=== PATIENT | male | born 1955 | race Caucasian/White ===

== ENCOUNTER 2018-12-24 01:04 | Inpatient (IN) | payer MEDICARE ==
[2018-12-24] MEDS ORDERED: ASPIRIN 81 MG PO STA (01:17)
--- NOTE | 2018-12-24 01:26 | ED ---
Chest Pain HPI - General Chief Complaint: Chest Pain Stated Complaint: Chest Pain Time Seen by Provider: 12/24/18 01:17 Source: patient Mode of arrival: ambulatory Limitations: no limitations - History of Present Illness Initial Comments: Kevin is a pleasant 63-year-old gentleman with extensive cardiac history including stenting of the LAD on December 22 and subsequent discharge home on the . Patient reports that during the evening he was laying down to go to bed when he began to feel a pressure in his chest, patient became concerned that this may be related to the recent stenting psychiatric the ER for reevaluation. Patient's currently been compliant with his boat into, he did not take any nitro prior to arrival. Patient reports an extensive cardiac history he has been stented 7 times in the past has 3 stents in the LAD and was advised after his stenting 2 days ago that he has a 70% occlusion of his right circumflex artery. Patient is still an occasional tobacco smoker with hypertension, hyperlipidemia and known vasculopathy. - Related Data Home Medications Medication Instructions Recorded Confirmed Aspirin 81 mg PO DAILY 01/20/15 12/24/18 Meclizine [Antivert] 25 mg PO TID PRN 01/20/15 12/24/18 Metoprolol Succinate (ER) [Toprol 100 mg PO BID 01/20/15 12/24/18 XL] Previous Rx's Medication Instructions Recorded Losartan [Cozaar] 50 mg PO DAILY #30 tab 12/23/18 Nitroglycerin Sl Tabs [Nitrostat] 0.4 mg SUBLINGUAL Q5M PRN #25 tab 12/23/18 Rosuvastatin Calcium [Crestor] 40 mg PO DAILY #30 tab 12/23/18 Spironolactone [Aldactone] 25 mg PO DAILY #30 tab 12/23/18 Ticagrelor [Brilinta] 90 mg PO BID #60 tab 12/23/18 Allergies Allergy/AdvReac Type Severity Reaction Status Date / Time Sulfa (Sulfonamide AdvReac HIGH FEVER Verified 12/21/18 23:38 Antibiotics) Review of Systems ROS Statement: Those systems with pertinent positive or pertinent negative responses have been documented in the HPI. ROS Other: All systems not noted in ROS Statement are negative. EKG Findings - EKG Comments: EKG Findings:: EKG obtained at 1:17 AM, rate of 61 rhythm is sinus there is normal axis, normal intervals, MS 160, QRS 90, QTC 446. There are significant T -wave inversions in the anterior lateral leads. When compared to previous EKG these T-wave inversions are new. I cannot access any post cardiac cath EKGs at this time. Past Medical History Past Medical History: Hyperlipidemia, Hypertension Additional Past Medical History / Comment(s): BACK PAIN; FAMILY HX OF DM - PT STATES THAT HE PERIODICALLY CHECKS HIS CBG AND IT IS SOMETIMES "HIGH" History of Any Multi-Drug Resistant Organisms: None Reported Past Surgical History: Adenoidectomy, Heart Catheterization With Stent, Orthopedic Surgery, Tonsillectomy Additional Past Surgical History / Comment(s): FINGER ON LEFT HAND SEWN ON - 1979; 5 STENTS - DR AYON ALL OF THEM IN - 1ST ONE IN 2001 AND LAST ONE IN 2010 Past Anesthesia/Blood Transfusion Reactions: No Reported Reaction Date of Last Stent Placement:: 2010 Past Psychological History: No Psychological Hx Reported Smoking Status: Current some day smoker Past Alcohol Use History: None Reported Past Drug Use History: None Reported - Past Family History Father Additional Family Medical History / Comment(s): VALVE Mother Family Medical History: Coronary Artery Disease (CAD), Diabetes Mellitus Additional Family Medical History / Comment(s): CABG General Exam - General Exam Comments Initial Comments: Physical Exam GENERAL: Patient is well-developed and well-nourished. Patient is nontoxic and well- hydrated and is in no distress. HENT: Normocephalic, Atraumatic. EYES: PERRL, EOMI PULMONARY: Unlabored respirations. No audible rales rhonchi or wheezing was noted. CARDIOVASCULAR: There is a regular rate and rhythm without any murmurs gallops or rubs. ABDOMEN: Soft and nontender with normal bowel sounds. SKIN: Skin is clear with no lesions or rashes and otherwise unremarkable. : Deferred NEUROLOGIC: Patient is alert and oriented x3. Moving all extremities spontaneously MUSCULOSKELETAL: Normal extremities with adequate strength and full range of motion. No lower extremity swelling or edema. No calf tenderness. PSYCHIATRIC: Normal psychiatric evaluation. Limitations: no limitations Limitations: no limitations Course Vital Signs 12/24/18 12/24/18 12/24/18 01:06 01:30 01:40 Temperature 98.3 F Pulse Rate 73 70 61 Respiratory 20 20 14 Rate Blood Pressure 191/100 155/92 158/99 O2 Sat by Pulse 97 97 95 Oximetry 12/24/18 12/24/18 12/24/18 01:53 02:00 02:30 Temperature Pulse Rate 69 72 58 L Respiratory 165 H 12 11 L Rate Blood Pressure 149/85 149/85 139/80 O2 Sat by Pulse 97 93 L 95 Oximetry Chest Pain MDM - MDM Patient was seen and evaluated history was obtained from the patient Patient with recent cardiac stenting now experiencing chest pressure which she rates 3-4 out of 10 sign aspirin and nitro ordered Cardiac workup ordered EKG was reviewed has new deep T-wave inversions concerning for ischemia Labs resulted with elevated troponin 1.4, patient did have a cardiac cath recently still uncertain of the significance of this troponin elevation next line patient care was discussed with cardiology nurse practitioner physician assistant who agrees with plan for continuing [place] tach, aspirin, nitro, patient to be evaluated by cardiology in the morning Patient was updated on findings is agreeable to plan Admission orders were placed Disposition Clinical Impression: NSTEMI (non-ST elevated myocardial infarction), Chest pain Disposition: ADMITTED IP TO THIS HOSP Condition: Serious Is patient prescribed a controlled substance at d/c from ED?: No Referrals: Brayden Bains MD [Primary Care Provider] - 1-2 days
--- NOTE | 2018-12-24 01:46 | XR ---
EXAMINATION TYPE: XR chest 2V DATE OF EXAM: 12/24/2018 COMPARISON: 12/21/2018 HISTORY: Chest pain TECHNIQUE: Frontal and lateral views of the chest are obtained. FINDINGS: Heart and mediastinum are normal. Lungs are clear of infiltrate. There is no pleural effus ion. There are chest leads. Bony thorax is intact. IMPRESSION: No active cardiopulmonary disease. No change.
[2018-12-24] MEDS: NITROGLYCERIN SL TABS 0.4 MG TAB SUBLINGUAL PRN ×2 (01:49→06:33)
[2018-12-24 01:52] LABS: Basophils % (A) 1 %; Eosinophils # (A) 0.2 k/uL (0-0.7); Eosinophils % (A) 2 %; HCT 50.6 % (39.0-53.0); HGB 17.3 gm/dL (13.0-17.5); Lymphocytes # (A) 1.7 k/uL (1.0-4.8); Lymphocytes % (A) 24 %; MCH 30.7 pg (25.0-35.0); MCHC 34.2 g/dL (31.0-37.0); MCV 89.8 fL (80.0-100.0); Mean Platelet Volume 7.9; Monocytes # (A) 0.5 k/uL (0-1.0); Monocytes % (A) 7 %; Neutrophils # (A) 4.7 k/uL (1.3-7.7); Neutrophils % (A) 64 %; Platelet Count 158 k/uL (150-450); RBC 5.64 m/uL (4.30-5.90); RDW 13.5 % (11.5-15.5); WBC 7.3 k/uL (3.8-10.6)
[2018-12-24 01:56] LABS: Albumin 4.4 g/dL (3.5-5.0); Calcium 9.8 mg/dL (8.4-10.2); Magnesium 2.1 mg/dL (1.6-2.3); Potassium 4.4 mmol/L (3.5-5.1); Total Bilirubin 1.5 mg/dL (0.2-1.3); Total Protein 7.2 g/dL (6.3-8.2)
[2018-12-24 02:07] LABS: Partial Thromboplastin Time 24.5 sec (22.0-30.0); Prothrombin Time 10.4 sec (9.0-12.0)
[2018-12-24 02:21] LABS: Creatine Kinase MB 2.3 ng/mL (0.0-2.4)
[2018-12-24 02:24] LABS: Troponin I 1.49 ng/mL (0.000-0.034)
[2018-12-24] MEDS ORDERED: NITROGLYCERIN OINT 1 INCH/GM PACKET TOPICAL STA (02:29)
[2018-12-24 04:28] VITALS: BMI 30.2
[2018-12-24 08:16] LABS: Creatine Kinase MB 1.6 ng/mL (0.0-2.4)
[2018-12-24 08:26] LABS: Troponin I 1.36 ng/mL (0.000-0.034)
[2018-12-24] MEDS ORDERED: NITROGLYCERIN SL TABS 0.4 MG TAB SUBLINGUAL PRN ×2 (09:26→17:24)
[2018-12-24] MEDS ORDERED: ATORVASTATIN 80 MG TAB PO SCH (09:30)
--- NOTE | 2018-12-24 10:06 | P.HPIM ---
History of Present Illness 63-year-old gentleman came in with the comments of chest pressure like sensation which felt like his previous heart attack. Patient was discharged yesterday after he had an LAD stenting patient has ejection fraction of 30% patient denied any shortness of breath denied any lightheadedness denied any significant diaphoresis. Patient troponins bit elevated but the history of troponin during his previous hardware hospitalization was 4.5 if this may be attending down troponin patient does have significant T-wave inversions which are also presenton his previous EKGs but more prominent now in the anterolateral leads. Patient used to be a smoker didn't smoke his pain started after he woke up at around 11 PM midnight. Pain was constant moderate in severity without any significant radiation on the left side of the chest pressure like sensation. Nonpleuritic not associated with food. Pravin 2 sets of troponins are fairly stable at around 1.5. Cardiology was consulted. His cardiac catheterization showed significant around 70-80% blockages in RCA and circumflex as well. Review of Systems REVIEW OF SYSTEMS: CONSTITUTIONAL: No fever, no malaise, no fatigue. HEENT: No recent visual problems or hearing problems. Denied any sore throat. CARDIOVASCULAR: No orthopnea, PND, no palpitations, no syncope. PULMONARY: No shortness of breath, no cough, no hemoptysis. GASTROINTESTINAL: No diarrhea, no nausea, no vomiting, no abdominal pain. NEUROLOGICAL: No headaches, no weakness, no numbness. HEMATOLOGICAL: Denies any bleeding or petechiae. GENITOURINARY: Denies any burning micturition, frequency, or urgency. MUSCULOSKELETAL/RHEUMATOLOGICAL: Denies any joint pain, swelling, or any muscle pain. ENDOCRINE: Denies any polyuria or polydipsia. The rest of the 14-point review of systems is negative. Past Medical History Past Medical History: Hyperlipidemia, Hypertension Additional Past Medical History / Comment(s): BACK PAIN; FAMILY HX OF DM - PT STATES THAT HE PERIODICALLY CHECKS HIS CBG AND IT IS SOMETIMES "HIGH" History of Any Multi-Drug Resistant Organisms: None Reported Past Surgical History: Adenoidectomy, Heart Catheterization With Stent, Orthopedic Surgery, Tonsillectomy Additional Past Surgical History / Comment(s): FINGER ON LEFT HAND SEWN ON - 1979; 5 STENTS - DR AYON ALL OF THEM IN - 1ST ONE IN 2001 AND LAST ONE IN 2010 Past Anesthesia/Blood Transfusion Reactions: No Reported Reaction Date of Last Stent Placement:: 2010 Past Psychological History: No Psychological Hx Reported Smoking Status: Current some day smoker Past Alcohol Use History: None Reported Past Drug Use History: None Reported - Past Family History Father Family Medical History: Hypertension Additional Family Medical History / Comment(s): VALVE Mother Family Medical History: Coronary Artery Disease (CAD), Diabetes Mellitus Additional Family Medical History / Comment(s): CABG Medications and Allergies Home Medications Medication Instructions Recorded Confirmed Type Aspirin 81 mg PO DAILY 01/20/15 12/24/18 History Nitroglycerin Sl Tabs [Nitrostat] 0.4 mg SUBLINGUAL Q5M PRN #25 tab 12/23/18 Rx Rosuvastatin Calcium [Crestor] 40 mg PO DAILY #30 tab 12/23/18 12/24/18 Rx Spironolactone [Aldactone] 25 mg PO DAILY #30 tab 12/23/18 12/24/18 Rx Ticagrelor [Brilinta] 90 mg PO BID #60 tab 12/23/18 12/24/18 Rx Cholecalciferol [Vitamin D3] 1,000 unit PO DAILY 12/24/18 12/24/18 History Losartan Potassium 50 mg PO DAILY 12/24/18 12/24/18 History Metoprolol Tartrate [Lopressor] 100 mg PO BID 12/24/18 12/24/18 History amLODIPine [Norvasc] 10 mg PO DAILY 12/24/18 12/24/18 History Allergies Allergy/AdvReac Type Severity Reaction Status Date / Time Sulfa (Sulfonamide AdvReac HIGH FEVER Verified 12/21/18 23:38 Antibiotics) Physical Exam Vitals: Vital Signs Temp Pulse Pulse Resp BP BP Pulse Ox 12/24/18 04:00 97.9 F 70 18 149/96 95 12/24/18 03:00 68 16 152/89 97 12/24/18 02:52 97.9 F 70 18 149/96 95 12/24/18 02:30 58 L 11 L 139/80 95 12/24/18 02:00 72 12 149/85 93 L 12/24/18 01:53 69 165 H 149/85 97 12/24/18 01:40 61 14 158/99 95 12/24/18 01:30 70 20 155/92 97 12/24/18 01:06 98.3 F 73 20 191/100 97 Intake and Output 12/23/18 12/24/18 12/24/18 22:59 06:59 14:59 Other: Voiding Method Toilet Weight 86.6 kg PHYSICAL EXAMINATION: GENERAL: The patient is alert and oriented x3, not in any acute distress. Well developed, well nourished. HEENT: Pupils are round and equally reacting to light. EOMI. No scleral icterus. No conjunctival pallor. Normocephalic, atraumatic. No pharyngeal erythema. No thyromegaly. CARDIOVASCULAR: S1 and S2 present. No murmurs, rubs, or gallops. PULMONARY: Chest is clear to auscultation, no wheezing or crackles. ABDOMEN: Soft, nontender, nondistended, normoactive bowel sounds. No palpable organomegaly. MUSCULOSKELETAL: No joint swelling or deformity. EXTREMITIES: No cyanosis, clubbing, or pedal edema. NEUROLOGICAL: Gross neurological examination did not reveal any focal deficits. SKIN: No rashes. Results CBC & Chem 7: 12/24/18 01:17 12/24/18 01:17 Labs: Abnormal Lab Results - Last 24 Hours (Table) 12/24/18 12/24/18 12/24/18 Range/Units 01:17 01:17 06:46 Glucose 162 H (74-99) mg/dL Total Bilirubin 1.5 H (0.2-1.3) mg/dL Troponin I 1.490 H* 1.360 H* (0.000-0.034) ng/mL Thrombosis Risk Factor Assmnt - Choose All That Apply Each Factor Represents 1 point: Obesity (BMI >25) Each Risk Factor Represents 2 Points: Age 61-74 years Thrombosis Risk Factor Assessment Total Risk Factor Score: 3 Thrombosis Risk Factor Assessment Level: Moderate Risk Assessment and Plan Plan: -elevated troponins: Non-ST elevation myocardial infarction cannot be ruled out although the troponin elevation can be the trending down troponins from his previous non-ST elevation myocardial infarction. Patient will be continued on heparin discussed with cardiology patient may end up going for cardiac catheterizationconsidering his significant lesionsin RCA and circumflex. -Coronary artery disease: Continue with the dual antiplatelet therapy Crestor beta karen. -Hypertension -Congestive heart failure with ejection fraction of 30-35% not in acute exacerbation patient has chronic systolic dysfunction from his previous myocardial infarction. Continue with losartan as mentioned above is not requiring any diuretic therapy at this time -Hyperlipidemia
[2018-12-24] MEDS: LOSARTAN 50 MG TAB PO SCH (10:28)
[2018-12-24] MEDS: METOPROLOL TARTRATE 50 MG TAB PO SCH ×2 (10:28→21:02)
[2018-12-24] MEDS: SPIRONOLACTONE 25 MG TAB PO SCH (10:28)
[2018-12-24] MEDS ORDERED: ASPIRIN 325 MG TAB PO STA (11:52)
[2018-12-24] MEDS ORDERED: ASPIRIN 81 MG PO ONE (12:00)
[2018-12-24] MEDS: NITROGLYCERIN OINT 1 INCH/GM PACKET TOPICAL SCH ×3 (12:14→23:35)
--- NOTE | 2018-12-24 14:12 | P.CRDCN ---
History of Present Illness Consult date: 12/24/18 Chief complaint: Chest pain History of present illness: This is a pleasant 63-year-old gentleman with coronary artery disease, significant history of smoking, hypertension, dyslipidemia, presented to the emergency room complaining of chest discomfort. The patient initially presented a few days ago with a chest discomfort and ruled in for acute non-ST patient myocardial infarction. At that time he underwent a heart catheterization and was found to have severe disease involving the proximal LAD, severe disease involving the LCx, and intermediate to severe disease involving the right coronary artery. At that point the patient underwent successful stenting of the LAD with a good angiographic results and without any complication. Echo at that point showed an EF around 30 -35% with anterior hypokinesia. The patient was discharged home yesterday in stable medical condition to follow-up with me in the office. He was in his usual state of health and was chest pain-free to yesterday when he was at home and started experiencing discomfort, across the chest, as a pressure, without any radiation to the arm or neck or shoulders and without any associated symptoms of shortness of breath, sweating, dizziness or lightheadedness, or syncope. The EKG showed sinus rhythm with deep T-wave inversion in the anterior leads. The cardiac enzymes are abnormal that could be reflecting the prior PCI was performed 2 days ago. The patient continues to have ongoing chest discomfort around 1-3 over 10 in intensity. Because of that I decided to pursue with a heart catheterization later on today. Past Medical History Past Medical History: Hyperlipidemia, Hypertension Additional Past Medical History / Comment(s): BACK PAIN; FAMILY HX OF DM - PT STATES THAT HE PERIODICALLY CHECKS HIS CBG AND IT IS SOMETIMES "HIGH" History of Any Multi-Drug Resistant Organisms: None Reported Past Surgical History: Adenoidectomy, Heart Catheterization With Stent, Orthopedic Surgery, Tonsillectomy Additional Past Surgical History / Comment(s): FINGER ON LEFT HAND SEWN ON - 1979; 5 STENTS - DR AYON ALL OF THEM IN - 1ST ONE IN 2001 AND LAST ONE IN 2010 Past Anesthesia/Blood Transfusion Reactions: No Reported Reaction Date of Last Stent Placement:: 2010 Past Psychological History: No Psychological Hx Reported Smoking Status: Current some day smoker Past Alcohol Use History: None Reported Past Drug Use History: None Reported - Past Family History Father Family Medical History: Hypertension Additional Family Medical History / Comment(s): VALVE Mother Family Medical History: Coronary Artery Disease (CAD), Diabetes Mellitus Additional Family Medical History / Comment(s): CABG Medications and Allergies Home Medications Medication Instructions Recorded Confirmed Type Aspirin 81 mg PO DAILY 01/20/15 12/24/18 History Nitroglycerin Sl Tabs [Nitrostat] 0.4 mg SUBLINGUAL Q5M PRN #25 tab 12/23/18 Rx Rosuvastatin Calcium [Crestor] 40 mg PO DAILY #30 tab 12/23/18 12/24/18 Rx Spironolactone [Aldactone] 25 mg PO DAILY #30 tab 12/23/18 12/24/18 Rx Ticagrelor [Brilinta] 90 mg PO BID #60 tab 12/23/18 12/24/18 Rx Cholecalciferol [Vitamin D3] 1,000 unit PO DAILY 12/24/18 12/24/18 History Losartan Potassium 50 mg PO DAILY 12/24/18 12/24/18 History Metoprolol Tartrate [Lopressor] 100 mg PO BID 12/24/18 12/24/18 History amLODIPine [Norvasc] 10 mg PO DAILY 12/24/18 12/24/18 History Allergies Allergy/AdvReac Type Severity Reaction Status Date / Time Sulfa (Sulfonamide AdvReac HIGH FEVER Verified 12/21/18 23:38 Antibiotics) Physical Exam Vitals: Vital Signs Temp Pulse Pulse Resp BP BP Pulse Ox 12/24/18 08:05 98.0 F 71 18 126/81 96 12/24/18 04:00 97.9 F 70 18 149/96 95 12/24/18 03:00 68 16 152/89 97 12/24/18 02:52 97.9 F 70 18 149/96 95 12/24/18 02:30 58 L 11 L 139/80 95 12/24/18 02:00 72 12 149/85 93 L 12/24/18 01:53 69 165 H 149/85 97 12/24/18 01:40 61 14 158/99 95 12/24/18 01:30 70 20 155/92 97 12/24/18 01:06 98.3 F 73 20 191/100 97 Intake and Output 12/23/18 12/24/18 12/24/18 22:59 06:59 14:59 Other: Voiding Method Toilet Weight 86.6 kg - Constitutional General appearance: no acute distress - Respiratory Respiratory: bilateral: CTA - Cardiovascular Rhythm: regular Heart sounds: normal: S1, S2 Results 12/24/18 01:17 12/24/18 01:17 Cardiac Enzymes 12/24/18 12/24/18 12/24/18 Range/Units 01:17 01: 06:46 AST 29 (17-59) U/L CK-MB (CK-2) 2.3 1.6 (0.0-2.4) ng/mL Troponin I 1.490 H* 1.360 H* (0.000-0.034) ng/mL Coagulation 12/24/18 Range/Units 01:17 PT 10.4 (9.0-12.0) sec APTT 24.5 (22.0-30.0) sec CBC 12/24/18 Range/Units 01:17 WBC 7.3 (3.8-10.6) k/uL RBC 5.64 (4.30-5.90) m/uL Hgb 17.3 (13.0-17.5) gm/dL Hct 50.6 (39.0-53.0) % Plt Count 158 (150-450) k/uL Comprehensive Metabolic Panel 12/24/18 Range/Units 01:17 Sodium 138 (137-145) mmol/L Potassium 4.4 (3.5-5.1) mmol/L Chloride 104 (98-107) mmol/L Carbon Dioxide 25 (22-30) mmol/L BUN 16 (9-20) mg/dL Creatinine 1.04 (0.66-1.25) mg/dL Glucose 162 H (74-99) mg/dL Calcium 9.8 (8.4-10.2) mg/dL AST 29 (17-59) U/L ALT 33 (21-72) U/L Alkaline Phosphatase 74 (38-126) U/L Total Protein 7.2 (6.3-8.2) g/dL Albumin 4.4 (3.5-5.0) g/dL Current Medications Generic Name Dose Route Start Last Admin Trade Name Freq PRN Reason Stop Dose Admin Aspirin 81 mg 12/25/18 09:00 Aspirin PO DAILY EARL Atorvastatin Calcium 80 mg 12/24/18 09:30 01/25/19 09:38 Lipitor PO Not Given DAILY EARL Losartan Potassium 50 mg 12/24/18 09:30 12/24/18 10:28 Cozaar PO 50 mg DAILY EARL Administration Metoprolol Tartrate 100 mg 12/24/18 09:30 12/24/18 10:28 Lopressor PO 100 mg BID EARL Administration Nitroglycerin 1 inch 12/24/18 12:00 12/24/18 12:14 Nitro-Bid Oint TOPICAL 1 inch Q6HR EARL Administration Nitroglycerin 0.4 mg 12/24/18 09:26 Nitrostat SUBLINGUAL Q5M PRN Chest Pain Spironolactone 25 mg 12/24/18 09:30 12/24/18 10:28 Aldactone PO 25 mg DAILY EARL Administration Ticagrelor 90 mg 12/24/18 21:00 Brilinta PO BID EARL Intake and Output 12/23/18 12/24/18 12/24/18 22:59 06:59 14:59 Other: Voiding Method Toilet Weight 86.6 kg 12/24/18 01:17 12/24/18 01:17 Assessment and Plan Assessment: Assessment #1 acute non-ST patient myocardial infarction #2 known CAD as described above #3 status post a stenting of the LAD #4 multiple comorbid conditions Plan #1 continue the current medical regimen #2 proceed with coronary angiogram later on today
[2018-12-24 14:31] LABS: Creatine Kinase MB 1.3 ng/mL (0.0-2.4)
[2018-12-24 14:46] LABS: Troponin I 1.1 ng/mL (0.000-0.034)
[2018-12-24] MEDS ORDERED: LIDOCAINE 1% INJ 10MG/ML (20 ML MDV) ONE (16:09)
[2018-12-24] MEDS ORDERED: MIDAZOLAM 2 MG/2 ML VIAL IVP ONE ×2 (16:35→16:40)
[2018-12-24] MEDS ORDERED: LIDOCAINE 1% INJ 10MG/ML (20 ML MDV) SQ ONE (16:37)
[2018-12-24] MEDS ORDERED: IV FLUID CONTINUATION 900 ML IV ONE (16:40)
[2018-12-24] MEDS ORDERED: BIVALIRUDIN BOLUS 250 MG/50 ML IV ONE (16:43)
[2018-12-24] MEDS ORDERED: BIVALIRUDIN 250 MG in SODIUM CHLORIDE 0.9% 50 ML IV ONE (16:44)
[2018-12-24] MEDS ORDERED: TICAGRELOR 90 MG TAB ONE (16:44)
[2018-12-24] MEDS ORDERED: TICAGRELOR 90 MG TAB PO ONE (16:45)
[2018-12-24] MEDS ORDERED: NITROGLYCERIN 1000MCG/10ML SYRINGE INTRACORON ONE (16:55)
[2018-12-24] MEDS: NITROGLYCERIN 1000MCG/10ML SYRINGE INTRACORON ONE ×2 (16:58→17:13)
[2018-12-24] MEDS ORDERED: IOPAMIDOL-370 125ML BTL INJ ONE (17:14)
[2018-12-24] MEDS ORDERED: HYDROmorphone 2 MG/ML 1 ML SYRINGE IVP ONE (17:21)
[2018-12-24] MEDS ORDERED: ZOLPIDEM 5 MG TAB PO PRN (17:24)
[2018-12-24] MEDS ORDERED: RX INFO: IV CONTRAST WAS GIVEN 1 EACH MISC MISCELLANE PRN (17:24)
[2018-12-24] MEDS ORDERED: MAG HYDROX/AL HYDROX/SIMETH 30 ML CUP PO PRN (17:24)
[2018-12-24] MEDS ORDERED: ATROPINE SULFATE 0.1 MG/ML 10ML SYRINGE IV PRN (17:24)
[2018-12-24] MEDS ORDERED: SODIUM CHLORIDE 0.9% 1,000 ML IV SCH (17:30)
--- NOTE | 2018-12-24 18:07 | CC ---
CARDIAC CATHETERIZATION REPORT DATE OF SERVICE: 12/24/2018 PERFORMING PHYSICIAN: Lawrence Canada MD, [facility]. PROCEDURES PERFORMED: 1. Selective right and left coronary angiogram. 2. Successful stenting of OM1 of left circumflex using a 3.0 x 15 mm Xience drug- eluting stent with an excellent angiographic result and reduction of stenosis from 80% to 0%. 3. Successful stenting of the mid right coronary artery using a 2.75 x 15 mm Xience drug-eluting stent which was post-dilated using 3 mm balloon with an excellent angiographic result and reduction of stenosis from 70% to 0%. INDICATION: This is a pleasant 63-year-old gentleman who has known history of coronary artery disease who underwent a few days ago stenting of the LAD and was found to have severe disease involving the OM1 as well as mid RCA, was discharged home yesterday in stable medical condition. He presented back to the hospital with chest discomfort. Because of that, a heart catheterization was advised. APPROACH: Right common femoral artery. COMPLICATIONS: None. LEVEL OF SEDATION: Moderate, with sedation length of 44 minutes. PROCEDURE DESCRIPTION: After obtaining informed consent, the patient was brought to the cardiac labor relations teacher. The right common femoral artery was cannulated using micropuncture technique. The micropuncture wire passed easily. Then I placed a 6-Divehi sheath in the right common femoral artery. After that I did selective right and left coronary angiogram. Selective right coronary angiogram was performed using JR4 guide. Selective left coronary angiogram was performed using JL3 guide. Left heart catheterization was performed using the JR4 guide which crossed the aortic valve. Then I did pullback across the aortic valve. After that I did intervene on the OM1 as well as RCA. Please see separate paragraph for that. SELECTIVE CORONARY ANGIOGRAM: 1. The left main is . The LAD and left circumflex have separate origin from the aorta. 2. The LAD. The proximal LAD is stented. The stent is patent. The mid LAD has a lesion that appeared to be in the range of 50% to 60% and seems to be unchanged compared to before. This is just by the bifurcation of a medium-sized diagonal branch. The LAD distal to the diagonal is stented and the stent is patent. The LAD distally appeared to be normal. 3. The left circumflex. The proximal circumflex has mild disease only. The mid circumflex has mild disease and gives rise to a large OM branch which has a tight lesion in the range of 80%. The circumflex distally appeared to have mild to moderate diffuse disease. 4. The right coronary artery. The proximal right appeared to have mild disease only. The mid right has a lesion that appeared to be in the range of 70%. The right distally appeared to have mild disease only and bifurcates into PDA and PLV branches. PERCUTANEOUS CORONARY INTERVENTION OF THE LEFT CIRCUMFLEX: Anticoagulation was initiated using Angiomax. Subsequently I took JL3 guide and the left circumflex was engaged. A run-through wire was used to wire the left circumflex coronary artery. I did balloon angioplasty using a 2.5 x 12 mm balloon before I deployed a 3.0 x 12 x 15 mm Xience drug-eluting stent where the stent was positioned under fluoroscopy guidance and deployed under its nominal pressure. The following angiogram showed good angiographic results. For the right coronary artery, I did engage the right using JR4 guide. A run-through wire was used to wire the right coronary artery. I did balloon angioplasty using a 2.5 x 12 mm balloon before I deployed a 2.75 x 15 mm Xience drug-eluting stent where the stent again was positioned under fluoroscopy guidance and deployed under its nominal pressure. I post-dilated the stent using a 3.0 mm balloon. The final angiogram showed good results and the procedure was completed without any complication. CONCLUSION: 1. Patent stent in the proximal left anterior descending artery. There was intermediate lesion in the mid LAD that appeared to be the same as before. 2. Severe disease involving OM1 of left circumflex. 3. Severe disease involving the mid right coronary artery. 4. Successful stenting of both OM and right coronary artery as described above. POST-PROCEDURE MANAGEMENT: 1. Dual anti-platelet therapy. 2. Risk factor modifications. 3. Follow up with the patient. MMODL / IJN: [id number] /
[2018-12-24] MEDS: TICAGRELOR 90 MG TAB PO SCH (21:02)
[2018-12-25] MEDS: NITROGLYCERIN OINT 1 INCH/GM PACKET TOPICAL SCH ×3 (04:57→21:31)
[2018-12-25 07:39] LABS: Cholesterol 147 mg/dL (<200); HDL Cholesterol 27 mg/dL (40-60); LDL Cholesterol,Calculated 91 mg/dL (0-99); Triglycerides 144 mg/dL (<150)
[2018-12-25] MEDS: SPIRONOLACTONE 25 MG TAB PO SCH (08:39)
[2018-12-25] MEDS: METOPROLOL TARTRATE 50 MG TAB PO SCH ×2 (08:39→21:30)
[2018-12-25] MEDS: TICAGRELOR 90 MG TAB PO SCH ×2 (08:40→21:30)
[2018-12-25] MEDS: ASPIRIN 81 MG PO SCH (08:40)
[2018-12-25] MEDS: ROSUVASTATIN 40 MG PO SCH (08:40)
[2018-12-25] MEDS: LOSARTAN 50 MG TAB PO SCH (08:40)
[2018-12-25] MEDS ORDERED: ASPIRIN 81 MG PO SCH (09:00)
[2018-12-25] MEDS ORDERED: ASPIRIN 325 MG TAB PO SCH (09:00)
--- NOTE | 2018-12-25 11:54 | P.PN ---
Subjective Progress Note Date: 12/25/18 Principal diagnosis: Non-ST elevation NE This is a pleasant 63-year-old gentleman who presented to the hospital with a chest discomfort. He was discharged from the hospital a few days ago after he presented with acute non-ST elevation NE and underwent stenting of the LAD and was found to have severe disease involving the left circumflex and RCA and the plan to proceed with PCI of both as an outpatient. He underwent heart catheterization yesterday and was found to have patent stent in the LAD with severe disease involving the RCA and LCx where he underwent stenting of both with good angiographic results On follow-up with the patient today, 12/25/2018, he remains asymptomatic from a cardiovascular standpoint of view. The right groin is soft and nontender and without any bruises. He remains in normal sinus mechanism. I did recommend giving the patient on the current medical regimen including dual antiplatelet therapy and statin and monitor the patient for additional 24 hours for possible discharge tomorrow. Objective - Vital Signs Vital signs: Vital Signs Temp 98.2 F 12/25/18 08:42 Pulse 72 12/25/18 08:42 Resp 18 12/25/18 08:42 BP 137/73 12/25/18 08:42 Pulse Ox 94 L 12/25/18 08:42 Intake & Output 12/24/18 12/25/18 12/25/18 18:59 06:59 18:59 Intake Total 235 500 120 Output Total 1200 Balance -965 500 120 Weight 85.6 kg Intake: IV 235 Intake, IV Titration 500 Amount Sodium Chloride 0.9% 1, 500 000 ml @ 100 mls/hr IV . Q10H [facility] Rx#:[id number] Oral 120 Output: Urine 1200 Other: Voiding Method Urinal Urinal # Voids 1 - Constitutional General appearance: Present: no acute distress - Respiratory Respiratory: bilateral: CTA - Cardiovascular Rhythm: regular Heart sounds: normal: S1, S2 - Labs CBC & Chem 7: 12/24/18 01:17 12/25/18 06:44 Labs: Abnormal Lab Results - Last 24 Hours (Table) 12/24/18 12/25/18 Range/Units 13:37 06:44 Troponin I 1.100 H* (0.000-0.034) ng/mL HDL Cholesterol 27 L (40-60) mg/dL Assessment and Plan Assessment: Assessment #1 acute non-ST patient myocardial infarction #2 known CAD as described above #3 status post a stenting of the LAD as well as RCA and LCx #4 multiple comorbid conditions Plan #1 continue the current medical regimen #2 monitor the patient for additional 24 hours
[2018-12-26] MEDS: NITROGLYCERIN OINT 1 INCH/GM PACKET TOPICAL SCH ×3 (00:16→12:29)
[2018-12-26 08:20] VITALS: BP 143/70; PULSE 80; RESP 18; TEMP 97.9
[2018-12-26] MEDS: METOPROLOL TARTRATE 50 MG TAB PO SCH (08:20)
[2018-12-26] MEDS: SPIRONOLACTONE 25 MG TAB PO SCH (08:20)
[2018-12-26] MEDS: TICAGRELOR 90 MG TAB PO SCH (08:21)
[2018-12-26] MEDS: ASPIRIN 81 MG PO SCH (08:21)
[2018-12-26] MEDS: LOSARTAN 50 MG TAB PO SCH (08:21)
--- NOTE | 2018-12-26 09:28 | P.PN ---
Subjective Progress Note Date: 12/25/18 Patient is admitted with for non-ST elevation microinfarction patient had a previous LAD stenting about a week ago now underwent stenting of left circumflex and RCA. Patient is chest pain-free patient's ejection fraction is 30-35% patient will monitor 1 more day before discharge Constitutional: Denied any fatigue denied any fever. Cardio vascular: denied any chest pain, palpitations Gastrointestinal denied any nausea vomiting Pulmonary: Denied any shortness of breath cough Neurologic denied any new focal deficits All inpatient medications were reviewed and appropriate changes in these medications as dictated in the interval history and assessment and plan. Objective - Vital Signs Vital signs: Vital Signs Temp 97.9 F 12/26/18 08:00 Pulse 80 12/26/18 08:00 Resp 18 12/26/18 08:00 BP 143/70 12/26/18 08:00 Pulse Ox 95 12/26/18 08:00 Intake & Output 12/25/18 12/26/18 12/26/18 18:59 06:59 18:59 Intake Total 120 240 Output Total 1200 Balance 120 -1200 240 Weight 86.1 kg Intake: Oral 120 240 Output: Urine 1200 Other: Voiding Method Urinal Urinal Toilet # Voids 1 - Exam PHYSICAL EXAMINATION: GENERAL: The patient is alert and oriented x3, not in any acute distress. Well developed, well nourished. HEENT: Pupils are round and equally reacting to light. EOMI. No scleral icterus. No conjunctival pallor. Normocephalic, atraumatic. No pharyngeal erythema. No thyromegaly. CARDIOVASCULAR: S1 and S2 present. No murmurs, rubs, or gallops. PULMONARY: Chest is clear to auscultation, no wheezing or crackles. ABDOMEN: Soft, nontender, nondistended, normoactive bowel sounds. No palpable organomegaly. MUSCULOSKELETAL: No joint swelling or deformity. EXTREMITIES: No cyanosis, clubbing, or pedal edema. NEUROLOGICAL: Gross neurological examination did not reveal any focal deficits. SKIN: No rashes. - Labs CBC & Chem 7: 12/24/18 01:17 12/25/18 06:44 Assessment and Plan Plan: -elevated troponins: Non-ST elevation myocardial infarction patient underwent stenting of RCA and circumflex, recent stenting to LAD -Coronary artery disease: Continue with the dual antiplatelet therapy Crestor beta karen. -Hypertension -Congestive heart failure with ejection fraction of 30-35% not in acute exacerbation patient has chronic systolic dysfunction from his previous myocardial infarction. Continue with losartan as mentioned above is not requiring any diuretic therapy at this time -Hyperlipidemia
[2018-12-26] MEDS: ROSUVASTATIN 40 MG PO SCH (11:38)
--- NOTE | 2018-12-26 11:41 | P.PN ---
Subjective Progress Note Date: 12/26/18 Principal diagnosis: Non-ST elevation PR This is a pleasant 63-year-old gentleman who presented to the hospital with a chest discomfort. He was discharged from the hospital a few days ago after he presented with acute non-ST elevation PR and underwent stenting of the LAD and was found to have severe disease involving the left circumflex and RCA and the plan to proceed with PCI of both as an outpatient. He underwent heart catheterization yesterday and was found to have patent stent in the LAD with severe disease involving the RCA and LCx where he underwent stenting of both with good angiographic results On follow-up with the patient today, 12/26/2018, he remains asymptomatic from a cardiovascular standpoint of view. The right groin is soft and nontender and without any bruises. He remains in normal sinus mechanism. I did recommend giving the patient on the current medical regimen including dual antiplatelet therapy and statin. The patient can be discharged home. Objective - Vital Signs Vital signs: Vital Signs Temp 97.9 F 12/26/18 08:00 Pulse 80 12/26/18 08:00 Resp 18 12/26/18 08:00 BP 143/70 12/26/18 08:00 Pulse Ox 95 12/26/18 08:00 Intake & Output 12/25/18 12/26/18 12/26/18 18:59 06:59 18:59 Intake Total 120 240 Output Total 1200 Balance 120 -1200 240 Weight 86.1 kg Intake: Oral 120 240 Output: Urine 1200 Other: Voiding Method Urinal Urinal Toilet # Voids 1 - Constitutional General appearance: Present: no acute distress - Respiratory Respiratory: bilateral: CTA - Cardiovascular Rhythm: regular Heart sounds: normal: S1, S2 - Labs CBC & Chem 7: 12/24/18 01:17 12/25/18 06:44 Assessment and Plan Assessment: Assessment #1 acute non-ST patient myocardial infarction #2 known CAD as described above #3 status post a stenting of the LAD as well as RCA and LCx #4 multiple comorbid conditions Plan #1 continue the current medical regimen #2 DC home
--- NOTE | 2018-12-26 13:34 | P.DS ---
Providers Date of admission: 12/25/18 08:31 Attending physician: Arthur Root Consults: 12/24/18 02:30 Consult Physician Urgent Consulting Provider: Phyllis Barrera Consult Reason/Comments: chest pain, elevated trop, EKG changes Do you want consulting provider notified?: Already Contacted 12/24/18 17:24 Consult Physician Routine Consulting Provider: [facility] Consult Reason/Comments: Post Interventional patient Do you want consulting provider notified?: Already Contacted Primary care physician: [facility] Course: Patient is admitted with for non-ST elevation microinfarction patient had a previous LAD stenting about a week ago now underwent stenting of left circumflex and RCA. Patient is chest pain-free patient's ejection fraction is 30-35% is expected to improve cleared for discharge today patient will be discharged today in stable medical condition to home patient is not requiring any diuretics patient will be discharged on angiotensin receptor karen. PHYSICAL EXAMINATION: GENERAL: The patient is alert and oriented x3, not in any acute distress. Well developed, well nourished. HEENT: Pupils are round and equally reacting to light. EOMI. No scleral icterus. No conjunctival pallor. Normocephalic, atraumatic. No pharyngeal erythema. No thyromegaly. CARDIOVASCULAR: S1 and S2 present. No murmurs, rubs, or gallops. PULMONARY: Chest is clear to auscultation, no wheezing or crackles. ABDOMEN: Soft, nontender, nondistended, normoactive bowel sounds. No palpable organomegaly. MUSCULOSKELETAL: No joint swelling or deformity. EXTREMITIES: No cyanosis, clubbing, or pedal edema. NEUROLOGICAL: Gross neurological examination did not reveal any focal deficits. SKIN: No rashes. -acute non-ST elevation microinfarction underwent stenting of RCA and circumflex , recent stenting to LAD -Coronary artery disease: Continue with the dual antiplatelet therapy Crestor beta karen. -Hypertension -Congestive heart failure with ejection fraction of 30-35% not in acute exacerbation patient has chronic systolic dysfunction from his previous myocardial infarction. Continue with losartan as mentioned above is not requiring any diuretic therapy at this time -Hyperlipidemia Patient Condition at Discharge: Serious Plan - Discharge Summary New Discharge Prescriptions: Continue Aspirin 81 mg PO DAILY Nitroglycerin Sl Tabs [Nitrostat] 0.4 mg SUBLINGUAL Q5M PRN #25 tab PRN Reason: Chest Pain Spironolactone [Aldactone] 25 mg PO DAILY #30 tab Ticagrelor [Brilinta] 90 mg PO BID #60 tab Rosuvastatin Calcium [Crestor] 40 mg PO DAILY #30 tab Cholecalciferol [Vitamin D3] 1,000 unit PO DAILY amLODIPine [Norvasc] 10 mg PO DAILY Losartan Potassium 50 mg PO DAILY Metoprolol Tartrate [Lopressor] 100 mg PO BID Discharge Medication List Aspirin 81 mg PO DAILY 01/20/15 [History] Nitroglycerin Sl Tabs [Nitrostat] 0.4 mg SUBLINGUAL Q5M PRN #25 tab 12/23/18 [Rx ] Rosuvastatin Calcium [Crestor] 40 mg PO DAILY #30 tab 12/23/18 [Rx] Spironolactone [Aldactone] 25 mg PO DAILY #30 tab 12/23/18 [Rx] Ticagrelor [Brilinta] 90 mg PO BID #60 tab 12/23/18 [Rx] Cholecalciferol [Vitamin D3] 1,000 unit PO DAILY 12/24/18 [History] Losartan Potassium 50 mg PO DAILY 12/24/18 [History] Metoprolol Tartrate [Lopressor] 100 mg PO BID 12/24/18 [History] amLODIPine [Norvasc] 10 mg PO DAILY 12/24/18 [History] Follow up Appointment(s)/Referral(s): Lawrence Canada MD [STAFF PHYSICIAN] - 01/03/19 4:30 pm (Thursday -previously scheduled appointment) Brayden Bains MD [Primary Care Provider] - 12/27/18 10:00 am (Thursday -previously scheduled appointment) Patient Instructions/Handouts: Heart Attack (DC), Safe Use of Antiplatelet Medication (DC) Discharge Disposition: HOME SELF-CARE
== END 2018-12-26 14:02 | disposition home or self-care (01) | DRG 247 ==
LOC: EC 01:04 → 1SOBS 02:35 → 3SCARD 03:58 → OBSVTOIN 12-25 08:31
PROVIDERS: ADMIT Hospitalist; ATTEND Hospitalist
PROC: B2111ZZ Fluoroscopy of Multiple Coronary Arteries using Low Osmolar Contrast (ICD-10-PCS; 2018-12-24)
PROC: 027034Z Dilation of Coronary Artery, One Artery with Drug-eluting Intraluminal Device, Percutaneous Approach (ICD-10-PCS; principal; 2018-12-24 16:09)
PROC: 4A023N7 Measurement of Cardiac Sampling and Pressure, Left Heart, Percutaneous Approach (ICD-10-PCS; 2018-12-24 16:09)
DX: I21.4 Non-ST elevation (NSTEMI) myocardial infarction (principal); I50.22 Chronic systolic (congestive) heart failure; E78.5 Hyperlipidemia, unspecified; F17.210 Nicotine dependence, cigarettes, uncomplicated; I11.0 Hypertensive heart disease with heart failure; I25.10 Atherosclerotic heart disease of native coronary artery without angina pectoris; I25.2 Old myocardial infarction; Z79.02 Long term (current) use of antithrombotics/antiplatelets; Z79.82 Long term (current) use of aspirin; Z79.899 Other long term (current) drug therapy; Z82.49 Family history of ischemic heart disease and other diseases of the circulatory system; Z83.3 Family history of diabetes mellitus; Z95.5 Presence of coronary angioplasty implant and graft; M54.9 Dorsalgia, unspecified
CPT/HCPCS: 36415; 71046; 80053; 80061; 82550; 82553; 82565; 83735; 83880; 84484; 85025; 85610; 85730; 93005; 99291; C1874

== ENCOUNTER 2019-01-12 00:02 | Observation (INO) | payer MEDICARE ==
[2019-01-12] MEDS ORDERED: NITROGLYCERIN SL TABS 0.4 MG TAB SUBLINGUAL PRN (00:04)
[2019-01-12] MEDS ORDERED: HEPARIN SOD,PORK IN 0.45% NACL 25,000 UNIT in 0.45% NACL 1 250ML.BAG IV SCH (00:15)
[2019-01-12 00:23] LABS: HGB 15.3 gm/dL (13.0-17.5); Mean Platelet Volume 7.2; RDW 13.1 % (11.5-15.5)
[2019-01-12 00:24] LABS: HCT 44.8 % (39.0-53.0); MCH 30.3 pg (25.0-35.0); MCHC 34.3 g/dL (31.0-37.0); MCV 88.5 fL (80.0-100.0); Platelet Count 185 k/uL (150-450); RBC 5.06 m/uL (4.30-5.90); WBC 7.4 k/uL (3.8-10.6)
[2019-01-12 00:33] LABS: ALT 47 U/L (21-72); AST 19 U/L (17-59); Albumin 3.2 g/dL (3.5-5.0); Alkaline Phosphatase 63 U/L (38-126); Anion Gap 7 mmol/L; Blood Urea Nitrogen 13 mg/dL (9-20); Calcium 8.1 mg/dL (8.4-10.2); Carbon Dioxide 20 mmol/L (22-30); Chloride 111 mmol/L (98-107); Glucose 139 mg/dL (74-99); INR 1.1 (<1.2); Partial Thromboplastin Time 94.3 sec (22.0-30.0); Potassium 3.8 mmol/L (3.5-5.1); Prothrombin Time 11.3 sec (9.0-12.0); Sodium 138 mmol/L (137-145); Total Bilirubin 0.9 mg/dL (0.2-1.3); Total Protein 5.7 g/dL (6.3-8.2)
[2019-01-12 00:39] LABS: Creatine Kinase 50 U/L (55-170)
[2019-01-12 00:52] LABS: Creatine Kinase MB 0.9 ng/mL (0.0-2.4); Troponin I <0.012 ng/mL (0.000-0.034)
--- NOTE | 2019-01-12 01:19 | ED ---
Chest Pain HPI - General Stated Complaint: chest pain Time Seen by Provider: 01/12/19 00:04 Source: patient, EMS Mode of arrival: EMS Limitations: no limitations - History of Present Illness Initial Comments: Kevin is a pleasant 63-year-old gentleman who was seen and evaluated in our emergency department on December 21 for chest pain he says while he underwent cardiac catheterization with stenting, patient return to the emergency department on December 23 with recurrent chest pain after cardiac stenting, at that time he is found to have EKG changes he was again taken to [facility] and had 2 more stents placed. 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 Dickens outpatient he still experiences intermittent chest pain and did have a scheduled stress test from January 17. Patient reports that earlier today he was experiencing pressure-like pain and discomfort as well as some lightheadedness, patient states that he took a nitro which resolved his chest pressure he sought care in an outside emergency department and was found to have an EKG with no significant changes troponin was negative however given the high-risk nature of his condition was decided to start heparin and transfer him to our facility for further evaluation by cardiology. On arrival to our emergency Department patient is chest pain-free he is on heparin he has no acute complaints. - Related Data Home Medications Medication Instructions Recorded Confirmed Aspirin 81 mg PO DAILY 01/20/15 12/24/18 Cholecalciferol [Vitamin D3] 1,000 unit PO DAILY 12/24/18 12/24/18 Losartan Potassium 50 mg PO DAILY 12/24/18 12/24/18 Metoprolol Tartrate [Lopressor] 100 mg PO BID 12/24/18 12/24/18 amLODIPine [Norvasc] 10 mg PO DAILY 12/24/18 12/24/18 Previous Rx's Medication Instructions Recorded Nitroglycerin Sl Tabs [Nitrostat] 0.4 mg SUBLINGUAL Q5M PRN #25 tab 12/23/18 Rosuvastatin Calcium [Crestor] 40 mg PO DAILY #30 tab 12/23/18 Spironolactone [Aldactone] 25 mg PO DAILY #30 tab 12/23/18 Ticagrelor [Brilinta] 90 mg PO BID #60 tab 12/23/18 Allergies Allergy/AdvReac Type Severity Reaction Status Date / Time Sulfa (Sulfonamide AdvReac HIGH FEVER Verified 01/12/19 00:04 Antibiotics) Review of Systems ROS Statement: Those systems with pertinent positive or pertinent negative responses have been documented in the HPI. ROS Other: All systems not noted in ROS Statement are negative. EKG Findings - EKG Comments: EKG Findings:: EKG obtained at 12:10 AM, rate is 56 rhythm is sinus bradycardia there is a normal axis, there are normal intervals, ND 166, QRS 88, QTC is 368. There are T-wave inversions in V1 through V4 no acute elevationssignificant change from previous. No evidence of acute ischemia or infarction. Past Medical History Past Medical History: Hyperlipidemia, Hypertension Additional Past Medical History / Comment(s): BACK PAIN; FAMILY HX OF DM - PT STATES THAT HE PERIODICALLY CHECKS HIS CBG AND IT IS SOMETIMES "HIGH" History of Any Multi-Drug Resistant Organisms: None Reported Past Surgical History: Adenoidectomy, Heart Catheterization With Stent, Orthopedic Surgery, Tonsillectomy Additional Past Surgical History / Comment(s): FINGER ON LEFT HAND SEWN ON - 1979; 5 STENTS - DR AYON ALL OF THEM IN - 1ST ONE IN 2001 AND LAST ONE IN 2010 , 3 stents November 2018 Past Anesthesia/Blood Transfusion Reactions: No Reported Reaction Date of Last Stent Placement:: 2010 Past Psychological History: No Psychological Hx Reported Smoking Status: Current some day smoker Past Alcohol Use History: None Reported Past Drug Use History: None Reported - Past Family History Father Family Medical History: Hypertension Additional Family Medical History / Comment(s): VALVE Mother Family Medical History: Coronary Artery Disease (CAD), Diabetes Mellitus Additional Family Medical History / Comment(s): CABG General Exam - General Exam Comments Initial Comments: Physical Exam GENERAL: Patient is well-developed and well-nourished. Patient is nontoxic and well- hydrated and is in no distress. HENT: Normocephalic, Atraumatic. EYES: PERRL, EOMI PULMONARY: Unlabored respirations. No audible rales rhonchi or wheezing was noted. CARDIOVASCULAR: There is a regular rate and rhythm without any murmurs gallops or rubs. ABDOMEN: Soft and nontender with normal bowel sounds. SKIN: Skin is clear with no lesions or rashes and otherwise unremarkable. : Deferred NEUROLOGIC: Patient is alert and oriented x3. Moving all extremities spontaneously MUSCULOSKELETAL: Normal extremities with adequate strength and full range of motion. No lower extremity swelling or edema. No calf tenderness. PSYCHIATRIC: Normal psychiatric evaluation. Limitations: no limitations Limitations: no limitations Course Vital Signs 01/12/19 01/12/19 00:04 00:32 Temperature 98.7 F Pulse Rate 61 60 Respiratory 18 16 Rate Blood Pressure 143/99 148/89 O2 Sat by Pulse 97 98 Oximetry Chest Pain MDM - MDM Patient care was discussed with transferring physician prior to transfer. I am familiar with this patient as I evaluated him in the past. Outside facility spoke to cardiology team Dr. Fernandez Transfer was accepted. She was hemodynamically stable prior to and during transfer Patient was seen and evaluated immediately upon arrival. Chest pain-free at the time of arrival. Repeat labs ordered patient was admitted for further evaluation by cardiology. Disposition Clinical Impression: Unstable angina pectoris Disposition: ADMITTED IP TO THIS HOSP Condition: Serious Is patient prescribed a controlled substance at d/c from ED?: No Referrals: Brayden Bains MD [Primary Care Provider] - 1-2 days
[2019-01-12 06:29] LABS: Creatine Kinase 41 U/L (55-170)
[2019-01-12 06:40] LABS: Creatine Kinase MB 0.6 ng/mL (0.0-2.4)
[2019-01-12 07:29] LABS: Troponin I <0.012 ng/mL (0.000-0.034)
[2019-01-12] MEDS ORDERED: CAFFEINE CITRATE 60 MG/3 ML VIAL IV PRN (08:40)
[2019-01-12] MEDS ORDERED: REGADENOSON 0.4 MG/5 ML SYRINGE IV ONE (08:40)
[2019-01-12] MEDS ORDERED: LOSARTAN 50 MG TAB PO SCH (09:00)
--- NOTE | 2019-01-12 10:37 | P.CRDCN ---
History of Present Illness History of present illness: This is a pleasant 63-year-old male past medical history significant for coronary artery disease, ischemic cardiomyopathy, hypertension, dyslipidemia and former nicotine dependence. Last month he presented to the hospital with symptoms of chest discomfort with EKG changes and underwent cardiac catheterization revealing mid lesion in the RCA in the range of 70%, intermediate disease in the distal RCA 50%, mild disease in the mid circumflex 70% lesion noted in the first OM and a proximal in-stent restenosis of the LAD. At that time he underwent successful angioplasty of the proximal LAD with plans to FFR of the RCA and intervenention on the OM down the line. However, after being discharged he returned to the hospital with chest pain and underwent repeat heart catheterization and PCI of OM and RCA on 12/25/2018. He has been feeling well up until yesterday when he was sitting in his chair at home watching TV and felt a squeezing pain in the upper mid-sternal region. The pain did not feel similar to previously when he required stenting and to him felt more like reflux. However, he had not eaten anything in over 2 hours and checked his blood pressure at home which was elevated at 181/113. Therefore he came in for evaluation. He continues to feel a squeezing in his chest that is much more dull than originally felt. He denies shortness of breath, dizziness, palpitations, nausea, vomiting or diaphoresis. He does feel light headed at home but that has resolved. Blood pressure on arrival to ED 143/99. He saw Dr. Canada in the office 01/03 and medication adjustments were made from brillinta to plavix due to insurance coverage, norvasc discontinued and losartan was increased to 100 mg daily. He was scheduled for a stress test in the office Thursday. EKG reveals sinus mechanism with T-wave inversion noted in precordial leads, no change from previous EKG. Laboratory data reviewed, WBC 7.4, hemoglobin 15.3, platelets 185, sodium 138, potassium 3.8, creatinine 0.68, cardiac enzymes negative 2. Current cardiac medications include aspirin 81 mg daily, losartan 50 mg daily, lopressor 100 mg BID, brillinta 90 mg BID, aldactone 25 mg daily and rosuvastatin 40 mg daily. He plans to continue prescription of brillinta until complete then change to plavix. At the time of my exam: CONSTITUTIONAL: Denies fever. Denies chills. EYES: Denies blurred vision. Denies vision changes. Denies eye pain. EARS, NOSE, MOUTH & THROAT: Denies headache. Denies sore throat. Denies ear pain. CARDIOVASCULAR: Complains of ongoing chest pain. Denies shortness of breath. Denies orthopnea. Denies PND. Denies palpitations. RESPIRATORY: Denies cough. GASTROINTESTINAL: Denies abdominal pain. Denies diarrhea. Denies constipation. Denies nausea. Denies vomiting. MUSCULOSKELETAL: Denies myalgias. INTEGUMENTARY: Denies pruitis. Denies rash. NEUROLOGIC: Denies numbness. Denies tingling. Denies weakness. PSYCHIATRIC: Denies anxiety. Denies depression. ENDOCRINE: Denies fatigue. Denies weight change. Denies polydipsia. Denies polyurina. GENITOURINARY: Denies burning, hematuria or urgency with micturation. HEMATOLOGIC: Denies history of anemia. Denies bleeding. Blood pressure 164/79 heart rate 58 afebrile maintaining oxygen saturation on room air GENERAL: This is a 63-year-old male in no apparent distress at the time of my examination. HEENT: Head is atraumatic, normocephalic. Pupils are equal, round. Sclerae anicteric. Conjunctivae are clear. Mucous membranes of the mouth are moist. Neck is supple. There is no jugular venous distention. No carotid bruit is heard. LUNGS: Clear to auscultation no wheezes, rales or rhonchi. No chest wall tenderness is noted on palpation or with deep breathing. HEART: Regular rate and rhythm without murmurs, rubs or gallops. S1 and S2 heard. ABDOMEN: Soft, nontender. Bowel sounds are heard. No organomegaly noted. EXTREMITIES: No evidence of peripheral edema and no calf tenderness noted. VASCULAR: Radial and dorsalis pedis pulses palpated, no evidence of clubbing. NEUROLOGIC: Patient is awake, alert and oriented x3. ASSESSMENT Precordial chest pain, an acute event has been ruled out . Recent angioplasty last month on dual anti-platelet therapy Hypertension Ischemic cardiomyopathy Coronary artery disease s/p recent PCI November 2018 Dyslipidemia Chronic systolic heart failure, currently euvolemic Former nicotine dependence, quit November 2018 PLAN An acute event has been ruled out. Perform Lexiscan stress test to assess for reversible cardiac ischemia. Resume aspirin, brillinta, rosuvastatin, losartan, lopressor and aldactone as previously ordered. Further recommendations to follow. Thank you kindly for this consultation. Nurse Practitioner note has been reviewed, I agree with a documented findings and plan of care. Patient was seen and examined. Past Medical History Past Medical History: Hyperlipidemia, Hypertension Additional Past Medical History / Comment(s): BACK PAIN; FAMILY HX OF DM - PT STATES THAT HE PERIODICALLY CHECKS HIS CBG AND IT IS SOMETIMES "HIGH" History of Any Multi-Drug Resistant Organisms: None Reported Past Surgical History: Adenoidectomy, Heart Catheterization With Stent, Orthopedic Surgery, Tonsillectomy Additional Past Surgical History / Comment(s): FINGER ON LEFT HAND SEWN ON - 1979; 5 STENTS - DR AYON ALL OF THEM IN - 1ST ONE IN 2001 AND LAST ONE IN 2010 , 3 stents November 2018 Past Anesthesia/Blood Transfusion Reactions: No Reported Reaction Date of Last Stent Placement:: 2010 Past Psychological History: No Psychological Hx Reported Smoking Status: Current some day smoker Past Alcohol Use History: None Reported Past Drug Use History: None Reported - Past Family History Father Family Medical History: Hypertension Additional Family Medical History / Comment(s): VALVE Mother Family Medical History: Coronary Artery Disease (CAD), Diabetes Mellitus Additional Family Medical History / Comment(s): CABG Medications and Allergies Home Medications Medication Instructions Recorded Confirmed Type Aspirin 81 mg PO DAILY 01/20/15 01/12/19 History Nitroglycerin Sl Tabs [Nitrostat] 0.4 mg SUBLINGUAL Q5M PRN #25 tab 12/23/18 Rx Rosuvastatin Calcium [Crestor] 40 mg PO DAILY #30 tab 12/23/18 01/12/19 Rx Spironolactone [Aldactone] 25 mg PO DAILY #30 tab 12/23/18 01/12/19 Rx Ticagrelor [Brilinta] 90 mg PO BID #60 tab 12/23/18 01/12/19 Rx Cholecalciferol [Vitamin D3] 1,000 unit PO DAILY 12/24/18 01/12/19 History Losartan Potassium 50 mg PO DAILY 12/24/18 01/12/19 History Metoprolol Tartrate [Lopressor] 100 mg PO BID 12/24/18 01/12/19 History Allergies Allergy/AdvReac Type Severity Reaction Status Date / Time Sulfa (Sulfonamide AdvReac HIGH FEVER Verified 01/12/19 08:03 Antibiotics) Physical Exam Vitals: Vital Signs Temp Pulse Pulse Resp BP BP Pulse Ox 01/12/19 07:45 98.5 F 58 L 18 164/79 94 L 01/12/19 03:54 59 L 16 01/12/19 03:40 98.7 F 59 L 16 147/76 96 01/12/19 01:45 54 L 18 01/12/19 01:15 97.7 F 54 L 18 178/84 95 01/12/19 00:32 60 16 148/89 98 01/12/19 00:04 98.7 F 61 18 143/99 97 Intake and Output 01/11/19 01/12/19 01/12/19 22:59 06:59 14:59 Intake Total 48.445 Balance 48.445 Intake: Intake, IV Titration 48.445 Amount Heparin Sod,Pork in 0.45% 48.445 NaCl 25,000 unit In 0.45 % NaCl 1 250ml.bag @ 11 UNITS/KG/HR 9.57 mls/hr IV .Q24H [facility] Rx#: [id number] Other: Voiding Method Toilet # Voids 2 Weight 87.09 kg Results 01/12/19 00:12 01/12/19 00:12 Cardiac Enzymes 01/12/19 01/12/19 01/12/19 Range/Units 00:12 00:12 06:02 AST 19 (17-59) U/L CK-MB (CK-2) 0.9 0.6 (0.0-2.4) ng/mL Troponin I <0.012 <0.012 (0.000-0.034) ng/mL Coagulation 01/12/19 01/12/19 Range/Units 00:12 06:02 PT 11.3 (9.0-12.0) sec APTT 94.3 H 33.7 H (22.0-30.0) sec CBC 01/12/19 Range/Units 00:12 WBC 7.4 (3.8-10.6) k/uL RBC 5.06 (4.30-5.90) m/uL Hgb 15.3 (13.0-17.5) gm/dL Hct 44.8 (39.0-53.0) % Plt Count 185 (150-450) k/uL Comprehensive Metabolic Panel 01/12/19 Range/Units 00:12 Sodium 138 (137-145) mmol/L Potassium 3.8 (3.5-5.1) mmol/L Chloride 111 H (98-107) mmol/L Carbon Dioxide 20 L (22-30) mmol/L BUN 13 (9-20) mg/dL Creatinine 0.68 (0.66-1.25) mg/dL Glucose 139 H (74-99) mg/dL Calcium 8.1 L (8.4-10.2) mg/dL AST 19 (17-59) U/L ALT 47 (21-72) U/L Alkaline Phosphatase 63 (38-126) U/L Total Protein 5.7 L (6.3-8.2) g/dL Albumin 3.2 L (3.5-5.0) g/dL Current Medications Generic Name Dose Route Start Last Admin Trade Name Freq PRN Reason Stop Dose Admin Aspirin 325 mg 01/13/19 09:00 Aspirin PO DAILY [facility] Heparin Sodium/Sodium Chloride 250 mls @ 9.57 mls/hr 01/12/19 00:15 01/12/19 06:28 25,000 unit/ Sodium Chloride IV 12 units/kg/hr .Q24H [facility] 10.45 mls/hr Titration Protocol 11 UNITS/KG/HR Nitroglycerin 0.4 mg 01/12/19 00:04 Nitrostat SUBLINGUAL Q5M PRN Chest Pain Intake and Output 01/11/19 01/12/19 01/12/19 22:59 06:59 14:59 Intake Total 48.445 Balance 48.445 Intake: Intake, IV Titration 48.445 Amount Heparin Sod,Pork in 0.45% 48.445 NaCl 25,000 unit In 0.45 % NaCl 1 250ml.bag @ 11 UNITS/KG/HR 9.57 mls/hr IV .Q24H [facility] Rx#: [id number] Other: Voiding Method Toilet # Voids 2 Weight 87.09 kg 01/12/19 00:12 01/12/19 00:12
--- NOTE | 2019-01-12 11:40 | EST ---
EXERCISE STRESS DATE OF SERVICE: 01/12/2019 AGE: 63 SEX: Male HT: 67" WT: 192 pounds PROTOCOL: Lexiscan Cardiolite STAGE: DURATION OF EXERCISE: HEART RATE REST: 63 BLOOD PRESSURE REST: 153/76 MAXIMUM HEART RATE ACHIEVED: 102 MAXIMUM BLOOD PRESSURE: 197/76 85% MPHR: 100% MPHR: METS: INDICATION: Chest pain. CLINICAL INFORMATION: Baseline EKG shows sinus rhythm, T-wave inversions in the precordial leads. Patient was given intravenous Lexiscan as per protocol. Did not have chest pain or diagnostic ST-segment depression. CONCLUSIONS: 1. Negative stress test by EKG criteria. 2. Cardiolite portion of the stress test will be reported separately. MMODL / IJN: [id number] /
[2019-01-12] MEDS: TICAGRELOR 90 MG TAB PO SCH ×2 (12:17→21:29)
[2019-01-12] MEDS: ASPIRIN 81 MG PO SCH (12:17)
[2019-01-12] MEDS: ATORVASTATIN 80 MG TAB PO SCH (12:17)
[2019-01-12] MEDS: SPIRONOLACTONE 25 MG TAB PO SCH (12:17)
[2019-01-12] MEDS: METOPROLOL TARTRATE 50 MG TAB PO SCH ×2 (12:17→21:29)
[2019-01-12] MEDS ORDERED: LOSARTAN 50 MG TAB PO STA (12:18)
--- NOTE | 2019-01-12 12:35 | NM ---
EXAMINATION TYPE: NM stress lexiscan cardiolite DATE OF EXAM: 01/12/2019 COMPARISON: NONE HISTORY: Precordial chest pain and abnormal EKG TECHNIQUE: After the intravenous administration of 10.56 mCi Tc 99m Sestamibi - Cardiolite resting S PECT images acquired 50 minutes post injection. The patient received 0.4mg Lexiscan, 26.4 mCi Tc 99m Sestamibi - Stress images obtained [address] injection FINDINGS: Review of stress and rest SPECT images demonstrates no distinct perfusion abnormality. Gated analysi s shows normal wall motion with an estimated left ventricular ejection fraction of 72% %. IMPRESSION: No scintigraphic evidence for reversible ischemia.
[2019-01-12] MEDS ORDERED: amLODIPine 5 MG TAB PO SCH (16:00)
--- NOTE | 2019-01-12 16:11 | P.HPIM ---
History of Present Illness This is combined H&P and discharge summary Diagnoses: Chest pain, related to food. Cardiac causes were ruled out. Resolved History of coronary artery disease status post stent placement History of uterus hernia Hypertension, essential Hyperlipidemia Chronic back pain, not an active issue Hospital course This is a pleasant 63 years old male with past medical history of hyperlipidemia , hypertension, chronic back pain. History of coronary artery disease status post stenting. History of he had this hernia and see follow-up with Dr. Mcneal the international project manager as an outpatient. He presents because of one day of chest pain and high blood pressure. Patient states the pain started when day earlier as squeezing central nonradiating about 2-3/10 in severity, patient was easily go this morning by eating, associated with high blood pressure with systolic about 118 which may the patient got concerned and decided to come to emergency room. On the presentation his blood pressure was 178/84, currently 169/88. Patient has been evaluated by hide sorter and he underwent stress test of the heart which was negative or reversible ischemia in the hide sorter cleared the patient for discharge. Patient chest pain has resolved and he rated as 0/10 in severity. He denies any other symptoms. No dyspnea. No change in urine or bowel habits. No abdominal pain or nausea vomiting. He is tolerating diet well. No dizziness or palpitation. Patient was started on Norvasc for better control of his blood pressure and also Protonix Problems and management plan was discussed with the patient and he verbalized understanding and acceptance Patient was found stable and can be discharged home however he needs follow-up as an outpatient. Patient was instructed to follow up with his PCP Dr. Bains, and international project manager Dr. Mcneal in one week and he verbalized understanding and acceptance Gen: patient is a AAOx3, no distress CVS: S1-S2, RRR, no murmur Lungs: B/L CTA, no wheezing Abdomen: soft, no distention, no tenderness, positive bowel sounds Extremity: no leg edema or induration Time spent more than 35 minutes Past Medical History Past Medical History: Hyperlipidemia, Hypertension Additional Past Medical History / Comment(s): BACK PAIN; FAMILY HX OF DM - PT STATES THAT HE PERIODICALLY CHECKS HIS CBG AND IT IS SOMETIMES "HIGH" History of Any Multi-Drug Resistant Organisms: None Reported Past Surgical History: Adenoidectomy, Heart Catheterization With Stent, Orthopedic Surgery, Tonsillectomy Additional Past Surgical History / Comment(s): FINGER ON LEFT HAND SEWN ON - 1979; [address] - [address] AYON ALL OF THEM IN - 1ST ONE IN 2001 AND LAST ONE IN 2010 , 3 stents November 2018 Past Anesthesia/Blood Transfusion Reactions: No Reported Reaction Date of Last Stent Placement:: 2010 Past Psychological History: No Psychological Hx Reported Smoking Status: Current some day smoker Past Alcohol Use History: None Reported Past Drug Use History: None Reported - Past Family History Father Family Medical History: Hypertension Additional Family Medical History / Comment(s): VALVE Mother Family Medical History: Coronary Artery Disease (CAD), Diabetes Mellitus Additional Family Medical History / Comment(s): CABG Medications and Allergies Home Medications Medication Instructions Recorded Confirmed Type Aspirin 81 mg PO DAILY 01/20/15 01/12/19 History Nitroglycerin Sl Tabs [Nitrostat] 0.4 mg SUBLINGUAL Q5M PRN #25 tab 12/23/18 Rx Rosuvastatin Calcium [Crestor] 40 mg PO DAILY #30 tab 12/23/18 01/12/19 Rx Spironolactone [Aldactone] 25 mg PO DAILY #30 tab 12/23/18 01/12/19 Rx Ticagrelor [Brilinta] 90 mg PO BID #60 tab 12/23/18 01/12/19 Rx Cholecalciferol [Vitamin D3] 1,000 unit PO DAILY 12/24/18 01/12/19 History Losartan Potassium 100 mg PO DAILY 12/24/18 01/12/19 History Metoprolol Tartrate [Lopressor] 100 mg PO BID 12/24/18 01/12/19 History Allergies Allergy/AdvReac Type Severity Reaction Status Date / Time Sulfa (Sulfonamide AdvReac HIGH FEVER Verified 01/12/19 08:03 Antibiotics) Physical Exam Vitals: Vital Signs Temp Pulse Pulse Resp BP BP Pulse Ox 01/12/19 12:00 18 01/12/19 11:45 97.7 F 68 18 169/88 95 01/12/19 08:00 18 01/12/19 07:45 98.5 F 58 L 18 164/79 94 L 01/12/19 03:54 59 L 16 01/12/19 03:40 98.7 F 59 L 16 147/76 96 01/12/19 01:45 54 L 18 01/12/19 01:15 97.7 F 54 L 18 178/84 95 01/12/19 00:32 60 16 148/89 98 01/12/19 00:04 98.7 F 61 18 143/99 97 Intake and Output 01/12/19 01/12/19 01/12/19 06:59 14:59 22:59 Intake Total 48.445 Balance 48.445 Intake: Intake, IV Titration 48.445 Amount Heparin Sod,Pork in 0.45% 48.445 NaCl 25,000 unit In 0.45 % NaCl 1 250ml.bag @ 11 UNITS/KG/HR 9.57 mls/hr IV .Q24H [facility] Rx#: [id number] Other: Voiding Method Toilet Toilet # Voids 2 Weight 87.09 kg 87.09 kg Results CBC & Chem 7: 01/12/19 00:12 01/12/19 00:12 Labs: Abnormal Lab Results - Last 24 Hours (Table) 01/12/19 01/12/19 01/12/19 Range/Units 00:12 00:12 00:12 APTT 94.3 H (22.0-30.0) sec Chloride 111 H (98-107) mmol/L Carbon Dioxide 20 L (22-30) mmol/L Glucose 139 H (74-99) mg/dL Calcium 8.1 L (8.4-10.2) mg/dL Total Creatine Kinase 50 L (55-170) U/L Total Protein 5.7 L (6.3-8.2) g/dL Albumin 3.2 L (3.5-5.0) g/dL 01/12/19 01/12/19 Range/Units 06:02 06:02 APTT 33.7 H (22.0-30.0) sec Chloride (98-107) mmol/L Carbon Dioxide (22-30) mmol/L Glucose (74-99) mg/dL Calcium (8.4-10.2) mg/dL Total Creatine Kinase 41 L (55-170) U/L Total Protein (6.3-8.2) g/dL Albumin (3.5-5.0) g/dL Thrombosis Risk Factor Assmnt - Choose All That Apply Each Factor Represents 1 point: Obesity (BMI >25) Other Risk Factors: Yes Each Risk Factor Represents 2 Points: Age 61-74 years Thrombosis Risk Factor Assessment Total Risk Factor Score: 3 Thrombosis Risk Factor Assessment Level: Moderate Risk
[2019-01-12] MEDS: hydrALAZINE HCL 10 MG TAB PO SCH (22:19)
[2019-01-12 22:36] LABS: Cholesterol 78 mg/dL (<200); HDL Cholesterol 26 mg/dL (40-60); LDL Cholesterol,Calculated 43 mg/dL (0-99); Triglycerides 46 mg/dL (<150)
[2019-01-13] MEDS ORDERED: LOSARTAN 50 MG TAB PO SCH (09:00)
[2019-01-13] MEDS ORDERED: ASPIRIN 325 MG TAB PO SCH (09:00)
[2019-01-13 09:08] VITALS: RESP 18
[2019-01-13] MEDS: ATORVASTATIN 80 MG TAB PO SCH (09:10)
[2019-01-13] MEDS: ASPIRIN 81 MG PO SCH (09:10)
[2019-01-13] MEDS: hydrALAZINE HCL 10 MG TAB PO SCH (09:10)
[2019-01-13] MEDS: TICAGRELOR 90 MG TAB PO SCH (09:11)
[2019-01-13] MEDS: METOPROLOL TARTRATE 50 MG TAB PO SCH (09:11)
[2019-01-13] MEDS: SPIRONOLACTONE 25 MG TAB PO SCH (09:11)
--- NOTE | 2019-01-13 10:51 | P.PN ---
Subjective This is a pleasant 63-year-old male past medical history significant for coronary artery disease, ischemic cardiomyopathy, hypertension, dyslipidemia and former nicotine dependence. Last month he presented to the hospital with symptoms of chest discomfort with EKG changes and underwent cardiac catheterization revealing mid lesion in the RCA in the range of 70%, intermediate disease in the distal RCA 50%, mild disease in the mid circumflex 70% lesion noted in the first OM and a proximal in-stent restenosis of the LAD. At that time he underwent successful angioplasty of the proximal LAD with plans to FFR of the RCA and intervenention on the OM down the line. However, after being discharged he returned to the hospital with chest pain and underwent repeat heart catheterization and PCI of OM and RCA on 12/25/2018. He underwent Lexiscan yesterday that was negative for reversible cardiac ischemia. He was about to be discharged home last night and his blood pressure went up to 204/85 and 186/84. He was given a dose of amlodipine 5 mg and hydralazine. He has been up ambulating in the halls with no symptoms of chest pain, shortness of breath, dizziness or palpitations. GENERAL: This is a 63-year-old male in no apparent distress at the time of my examination. HEENT: Head is atraumatic, normocephalic. Pupils are equal, round. Sclerae anicteric. Conjunctivae are clear. Mucous membranes of the mouth are moist. Neck is supple. There is no jugular venous distention. No carotid bruit is heard. LUNGS: Clear to auscultation no wheezes, rales or rhonchi. No chest wall tenderness is noted on palpation or with deep breathing. HEART: Regular rate and rhythm without murmurs, rubs or gallops. S1 and S2 heard. EXTREMITIES: No evidence of peripheral edema and no calf tenderness noted. ASSESSMENT Precordial chest pain, an acute event has been ruled out . Recent angioplasty last month on dual anti-platelet therapy Hypertension Ischemic cardiomyopathy Coronary artery disease s/p recent PCI November 2018 Dyslipidemia Chronic systolic heart failure, currently euvolemic Former nicotine dependence, quit November 2018 PLAN Stable for discharge to follow up with Dr. Canada upon discharge. Recommend renal artery ultrasound, this can be done as an outpatient. Outpatient monitoring of his blood pressure daily and keep a log for review by Dr. Canada. Nurse Practitioner note has been reviewed, I agree with a documented findings and plan of care. Patient was seen and examined. Objective - Vital Signs Vital signs: Vital Signs Temp 99.2 F 01/13/19 08:00 Pulse 58 L 01/13/19 08:00 Resp 18 01/13/19 08:00 BP 157/88 01/13/19 08:00 Pulse Ox 97 01/13/19 08:00 Intake & Output 01/12/19 01/13/19 01/13/19 18:59 06:59 18:59 Intake Total 720 400 Balance 720 400 Weight 87.09 kg Intake: Oral 720 400 Other: Voiding Method Toilet Toilet # Voids 3 1 - Labs CBC & Chem 7: 01/12/19 00:12 01/12/19 00:12 Labs: Abnormal Lab Results - Last 24 Hours (Table) 01/12/19 Range/Units 00:12 HDL Cholesterol 26 L (40-60) mg/dL
[2019-01-13 12:51] VITALS: BP 147/77; PULSE 51; TEMP 98.1
--- NOTE | 2019-01-13 18:46 | P.DS ---
Providers Date of admission: 01/12/19 00:04 Attending physician: Shashank Marcial Consults: 01/12/19 00:04 Consult Physician Urgent Consulting Provider: Lawrence Canada Reason/Comments: chest pain - stent 12/21, 12/24 Do you want consulting provider notified?: Yes, Notify in am Primary care physician: [facility] Course: Diagnoses: Chest pain, related to food. Cardiac causes were ruled out. Resolved History of coronary artery disease status post stent placement History of uterus hernia Hypertension, essential Hyperlipidemia Chronic back pain, not an active issue Hospital course This is a pleasant 63 years old male with past medical history of hyperlipidemia , hypertension, chronic back pain. History of coronary artery disease status post stenting. History of he had this hernia and see follow-up with Dr. Mcneal the housekeeping cleaner as an outpatient. He presents because of one day of chest pain and high blood pressure. Patient states the pain started when day earlier as squeezing central nonradiating about 2-3/10 in severity, patient was easily go this morning by eating, associated with high blood pressure with systolic about 118 which may the patient got concerned and decided to come to emergency room. On the presentation his blood pressure was 178/84, currently 169/88. Patient has been evaluated by pipeline maintenance supervisor and he underwent stress test of the heart which was negative or reversible ischemia in the pipeline maintenance supervisor cleared the patient for discharge. Patient chest pain has resolved and he rated as 0/10 in severity. He denies any other symptoms. No dyspnea. No change in urine or bowel habits. No abdominal pain or nausea vomiting. He is tolerating diet well. No dizziness or palpitation.pt was about to be discharged yesterday however his BP became high at 204/85, Patient was started on hydralazine for better control of his blood pressure and also Protonix. his BP today on discharge was 147/77. pipeline maintenance supervisor recommended renal artery duple as outpt, appointment was made for the pt with for this purpose and pt agrees with this plan and appointment . pt remains chest pain free upon discharge with no other new s/s and pt was cleared for discharged today by pipeline maintenance supervisor Problems and management plan was discussed with the patient and he verbalized understanding and acceptance Patient was found stable and can be discharged home however he needs follow-up as an outpatient. Patient was instructed to follow up with his PCP Dr. Bains, and housekeeping cleaner Dr. Mcneal in one week and he verbalized understanding and acceptance Gen: patient is a AAOx3, no distress CVS: S1-S2, RRR, no murmur Lungs: B/L CTA, no wheezing Abdomen: soft, no distention, no tenderness, positive bowel sounds Extremity: no leg edema or induration Time spent more than 35 minutes Patient Condition at Discharge: Serious Plan - Discharge Summary Discharge Rx Participant: No New Discharge Prescriptions: New Pantoprazole Sodium [Protonix] 40 mg PO DAILY 10 Days #10 tablet. hydrALAZINE HCL [Apresoline] 10 mg PO BID tab Continue Aspirin 81 mg PO DAILY Nitroglycerin Sl Tabs [Nitrostat] 0.4 mg SUBLINGUAL Q5M PRN #25 tab PRN Reason: Chest Pain Spironolactone [Aldactone] 25 mg PO DAILY #30 tab Ticagrelor [Brilinta] 90 mg PO BID #60 tab Rosuvastatin Calcium [Crestor] 40 mg PO DAILY #30 tab Cholecalciferol [Vitamin D3] 1,000 unit PO DAILY Losartan Potassium 100 mg PO DAILY Metoprolol Tartrate [Lopressor] 100 mg PO BID Discharge Medication List Aspirin 81 mg PO DAILY 01/20/15 [History] Nitroglycerin Sl Tabs [Nitrostat] 0.4 mg SUBLINGUAL Q5M PRN #25 tab 12/23/18 [Rx ] Rosuvastatin Calcium [Crestor] 40 mg PO DAILY #30 tab 12/23/18 [Rx] Spironolactone [Aldactone] 25 mg PO DAILY #30 tab 12/23/18 [Rx] Ticagrelor [Brilinta] 90 mg PO BID #60 tab 12/23/18 [Rx] Cholecalciferol [Vitamin D3] 1,000 unit PO DAILY 12/24/18 [History] Losartan Potassium 100 mg PO DAILY 12/24/18 [History] Metoprolol Tartrate [Lopressor] 100 mg PO BID 12/24/18 [History] Pantoprazole Sodium [Protonix] 40 mg PO DAILY 10 Days #10 tablet. 01/12/19 [Rx ] hydrALAZINE HCL [Apresoline] 10 mg PO BID tab 01/13/19 [Rx] Follow up Appointment(s)/Referral(s): Jimbo Carlisle MD [STAFF PHYSICIAN] - 01/19/19 3:30 pm (Appt is scheduled for the [facility]) Lawrence Canada MD [STAFF PHYSICIAN] - 01/25/19 2:30 pm (you will need artery duplex Bilaterally for your uncontrolled hypertension keep NPO ( nothing by mouth ) after mid-night No carbonated drinks for 24 hours before ) Brayden Bains MD [Primary Care Provider] - 1-2 days Activity/Diet/Wound Care/Special Instructions: Cardiac diet Activity is as tolerated Discharge Disposition: HOME SELF-CARE
== END 2019-01-13 14:35 | disposition home or self-care (01) ==
LOC: EC 00:02 → 1SOBS 00:04
PROVIDERS: ADMIT Internal Medicine; ATTEND Internal Medicine
DX: R07.9 Chest pain, unspecified (principal); I25.10 Atherosclerotic heart disease of native coronary artery without angina pectoris; I11.0 Hypertensive heart disease with heart failure; I50.22 Chronic systolic (congestive) heart failure; I25.5 Ischemic cardiomyopathy; E78.5 Hyperlipidemia, unspecified; Z79.02 Long term (current) use of antithrombotics/antiplatelets; G89.29 Other chronic pain; M54.9 Dorsalgia, unspecified; R00.1 Bradycardia, unspecified; E66.9 Obesity, unspecified; Z68.30 Body mass index [BMI] 30.0-30.9, adult; Z79.82 Long term (current) use of aspirin; Z79.899 Other long term (current) drug therapy; Z88.2 Allergy status to sulfonamides; Z87.891 Personal history of nicotine dependence; Z87.19 Personal history of other diseases of the digestive system; Z95.5 Presence of coronary angioplasty implant and graft; Z83.3 Family history of diabetes mellitus; Z82.49 Family history of ischemic heart disease and other diseases of the circulatory system
CPT/HCPCS: 93005; 96366; 96365; 99285; 36415; 93017; 80061; 80053; 82550; 82553; 84484; 85027; 85610; 85730; 78452; G0378 ×2; A9500; J2785; J1644

== ENCOUNTER → 2019-02-09 | Outpatient (CLI) | payer MEDICARE ==
--- NOTE | 2019-02-09 09:38 | US ---
EXAMINATION TYPE: US renal artery duplex complet DATE OF EXAM: 02/09/2019 COMPARISON: NONE CLINICAL HISTORY: I10 Hypertension. HTN - uncontrolled for 2 weeks. Cardiac stents 1.5 months ago MEASUREMENTS: RENAL SIZE: Rt Kidney: 11.0 x 4.4 x 4.1cm Lt Kidney: 10.4 x 4.0 x 4.1cm RESISTANCE INDEX Right: 0.68 Left: 0.65 RA/AO RATIO (< 3.5 ) Right: 3.1 Left: 2.7 RA VELOCITY ( < 180 cm/s) Right: 179.4cm/s Left: 156.3cm/s Technical limitations due to overlying bowel content. Visualized portions of abdominal aorta appear unremarkable. Renals appear unremarkable. Right renal artery velocities appear upper limits of julio l *Incidental finding: splenomegaly, spleen = 14.1cm IMPRESSION: Right-sided values approach criteria for renal arterial stenosis (borderline). No sonographic evidenc e of left renal arterial stenosis.
== END | disposition home or self-care (01) ==
LOC: RADUSWWP 07:53
PROVIDERS: ATTEND Internal Medicine
DX: I10 Essential (primary) hypertension (principal)
CPT/HCPCS: 93975

== ENCOUNTER 2020-01-25 20:56 | Observation (INO) | payer MEDICARE ==
[2020-01-25] MEDS ORDERED: SODIUM CHLORIDE 0.9% 500 ML 500 ML IV STA (21:36)
[2020-01-25] MEDS ORDERED: SODIUM CHLORIDE 0.9% 1,000 ML IV STA (21:36)
--- NOTE | 2020-01-25 21:36 | ED ---
Chest Pain HPI - General Chief Complaint: Extremity Problem,Nontraumatic Stated Complaint: Chest pain Time Seen by Provider: 01/25/20 20:59 Source: patient, EMS, RN notes reviewed, old records reviewed Mode of arrival: EMS Limitations: no limitations - History of Present Illness Initial Comments: This is a 64-year-old male DF for evaluation chest pain patient has history of chest pain coming in for chest pain worsening that is normal chest pain today. Is also having pain on his arm with high blood pressure and history of high cholesterol. MD Complaint: chest pain -: hour(s) Onset: during rest Pain Location: left chest Pain Radiation: LUE Severity: moderate Severity scale (1-10): 7 Quality: heaviness Consistency: now resolved Improves With: nitroglycerin Worsens With: nothing Anginal Symptoms: nausea, dyspnea Other Symptoms: palpitations Treatments Prior to Arrival: nitroglycerin - Related Data Home Medications Medication Instructions Recorded Confirmed Losartan Potassium 100 mg PO DAILY@1500 12/24/18 01/25/20 Aspirin EC [Ecotrin Low Dose] 81 mg PO DAILY@0900 01/25/20 01/25/20 Carvedilol [Coreg] 25 mg PO BID@0900,209901/25/20 01/25/20 Clopidogrel Bisulfate [Plavix] 75 mg PO HS@209901/25/20 01/25/20 Spironolactone [Aldactone] 25 mg PO DAILY@0900 01/25/20 01/25/20 amLODIPine [Norvasc] 10 mg PO HS@2100 01/25/20 01/25/20 Previous Rx's Medication Instructions Recorded Nitroglycerin Sl Tabs [Nitrostat] 0.4 mg SUBLINGUAL Q5M PRN #25 tab 12/23/18 Pravastatin Sodium [Pravachol] 10 mg PO DAILY #90 tab 01/26/20 Allergies Allergy/AdvReac Type Severity Reaction Status Date / Time Sulfa (Sulfonamide AdvReac HIGH FEVER Verified 01/25/20 23:47 Antibiotics) Review of Systems ROS Statement: Those systems with pertinent positive or pertinent negative responses have been documented in the HPI. ROS Other: All systems not noted in ROS Statement are negative. EKG Findings - EKG Comments: EKG Findings:: EKG shows sinus rhythm of 67, MI 180, QRS 80, QTC 405 Past Medical History Past Medical History: Hyperlipidemia, Hypertension Additional Past Medical History / Comment(s): BACK PAIN; FAMILY HX OF DM - PT STATES THAT HE PERIODICALLY CHECKS HIS CBG AND IT IS SOMETIMES "HIGH" History of Any Multi-Drug Resistant Organisms: None Reported Past Surgical History: Adenoidectomy, Heart Catheterization With Stent, Orthopedic Surgery, Tonsillectomy Additional Past Surgical History / Comment(s): FINGER ON LEFT HAND SEWN ON - 1979; 5 STENTS - [address] AYON ALL OF THEM IN - 1ST ONE IN 2001 AND LAST ONE IN 2010, 3 stents November 2018 Past Anesthesia/Blood Transfusion Reactions: No Reported Reaction Date of Last Stent Placement:: 2010 Past Psychological History: No Psychological Hx Reported Smoking Status: Current some day smoker Past Alcohol Use History: None Reported Past Drug Use History: None Reported - Past Family History Father Family Medical History: Hypertension Additional Family Medical History / Comment(s): VALVE Mother Family Medical History: Coronary Artery Disease (CAD), Diabetes Mellitus Additional Family Medical History / Comment(s): CABG General Exam Limitations: no limitations General appearance: alert, in no apparent distress Head exam: Present: atraumatic, normocephalic, normal inspection Eye exam: Present: normal appearance, PERRL, EOMI. Absent: scleral icterus, conjunctival injection, periorbital swelling ENT exam: Present: normal exam, mucous membranes moist Neck exam: Present: normal inspection. Absent: tenderness, meningismus, lymphadenopathy Respiratory exam: Present: normal lung sounds bilaterally. Absent: respiratory distress, wheezes, rales, rhonchi, stridor Cardiovascular Exam: Present: regular rate, normal rhythm, normal heart sounds. Absent: systolic murmur, diastolic murmur, rubs, gallop, clicks GI/Abdominal exam: Present: soft, normal bowel sounds. Absent: distended, tenderness, guarding, rebound, rigid Extremities exam: Present: normal inspection, full ROM, normal capillary refill. Absent: tenderness, pedal edema, joint swelling, calf tenderness Back exam: Present: normal inspection Neurological exam: Present: alert, oriented X3, CN II-XII intact Psychiatric exam: Present: normal affect, normal mood Skin exam: Present: warm, dry, intact, normal color. Absent: rash Course Vital Signs 01/25/20 01/25/20 20:59 22:59 Temperature 98.6 F 98.3 F Pulse Rate 66 75 Respiratory 18 16 Rate Blood Pressure 186/96 167/91 O2 Sat by Pulse 96 95 Oximetry - Reevaluation(s) Reevaluation #1: Medical record is reviewed Patient's symptoms are improved here in the ER he does have some complaint of chest pain Patient does not fill comfortable with discharge Chest Pain MDM - MDM 64 male to be admitted with history of heart disease admitted for chest pain observation history of high blood pressure high cholesterol, chest x-ray is negative for acute disease Critical Care Time Critical Care Time: Yes Total Critical Care Time: 31 Disposition Clinical Impression: Chest pain, Unstable angina pectoris Disposition: ADMITTED IP TO THIS HOSP Condition: Undetermined Is patient prescribed a controlled substance at d/c from ED?: No
[2020-01-25 21:55] LABS: Partial Thromboplastin Time 24.4 sec (22.0-30.0); Prothrombin Time 10.4 sec (9.0-12.0)
[2020-01-25 21:56] LABS: ALT 22 U/L (4-49); AST 21 U/L (17-59); African American GFR (CKD) >90 (>60 ml/min/1.73 sqM); Albumin 4.1 g/dL (3.5-5.0); Alkaline Phosphatase 75 U/L (38-126); Anion Gap 9 mmol/L; Blood Urea Nitrogen 20 mg/dL (9-20); Calcium 9.6 mg/dL (8.4-10.2); Carbon Dioxide 25 mmol/L (22-30); Chloride 101 mmol/L (98-107); Glucose 188 mg/dL (74-99); Magnesium 1.9 mg/dL (1.6-2.3); Non-African American GFR(CKD) >90 (>60 ml/min/1.73 sqM); Potassium 4.3 mmol/L (3.5-5.1); Sodium 135 mmol/L (137-145); Total Bilirubin 0.5 mg/dL (0.2-1.3); Total Protein 6.7 g/dL (6.3-8.2)
--- NOTE | 2020-01-25 21:59 | XR ---
EXAMINATION TYPE: XR chest 2V DATE OF EXAM: 01/25/2020 COMPARISON: 01/11/2019 HISTORY: Chest pain TECHNIQUE: FINDINGS: Heart is normal. Lungs are clear of infiltrate. There is no heart failure. Bony thorax is i ntact. There are chest leads. IMPRESSION: No active cardiopulmonary disease. Normal heart. No change.
[2020-01-25 22:10] LABS: Basophils % (A) 0 %; Eosinophils # (A) 0.1 k/uL (0-0.7); Eosinophils % (A) 1 %; HCT 45.8 % (39.0-53.0); HGB 15.9 gm/dL (13.0-17.5); Lymphocytes # (A) 1.2 k/uL (1.0-4.8); Lymphocytes % (A) 15 %; MCH 30.6 pg (25.0-35.0); MCHC 34.7 g/dL (31.0-37.0); MCV 88.3 fL (80.0-100.0); Mean Platelet Volume 8.3; Monocytes # (A) 0.3 k/uL (0-1.0); Monocytes % (A) 4 %; Neutrophils # (A) 5.9 k/uL (1.3-7.7); Neutrophils % (A) 77 %; Platelet Count 171 k/uL (150-450); RBC 5.19 m/uL (4.30-5.90); WBC 7.7 k/uL (3.8-10.6)
[2020-01-25] MEDS ORDERED: NITROGLYCERIN SL TABS 0.4 MG TAB SUBLINGUAL PRN (22:24)
[2020-01-26] MEDS ORDERED: amLODIPine 10 MG TAB PO SCH (00:21)
[2020-01-26] MEDS ORDERED: CLOPIDOGREL 75 MG TAB PO SCH (00:21)
[2020-01-26] MEDS ORDERED: SODIUM CHLORIDE 0.9% 1,000 ML IV SCH (00:30)
[2020-01-26] MEDS: CARVEDILOL 12.5 MG TAB PO SCH ×2 (00:35→11:45)
[2020-01-26 05:30] LABS: Cholesterol 162 mg/dL (<200); HDL Cholesterol 27 mg/dL (40-60); LDL Cholesterol,Calculated 99 mg/dL (0-99); Triglycerides 181 mg/dL (<150)
[2020-01-26 07:33] VITALS: RESP 18; TEMP 98.2
[2020-01-26] MEDS ORDERED: ASPIRIN 325 MG TAB PO SCH (09:00)
[2020-01-26] MEDS ORDERED: CAFFEINE CITRATE 60 MG/3 ML VIAL IV PRN ×2 (09:02→10:00)
[2020-01-26] MEDS ORDERED: AMINOPHYLLINE 500 MG/20 ML VIAL IV PRN ×2 (09:02→10:00)
[2020-01-26] MEDS ORDERED: PRAVASTATIN SODIUM 20 MG TAB PO SCH (09:15)
[2020-01-26] MEDS ORDERED: ATORVASTATIN 80 MG TAB PO SCH (09:15)
[2020-01-26] MEDS ORDERED: SODIUM CHLORIDE 0.9% IV ONE (09:30)
[2020-01-26] MEDS ORDERED: DIPYRIDAMOLE IV ONE (09:30)
[2020-01-26] MEDS ORDERED: REGADENOSON 0.4 MG/5 ML SYRINGE IV ONE (10:00)
--- NOTE | 2020-01-26 10:39 | P.CRDCN ---
History of Present Illness History of present illness: HISTORY OF PRESENTING ILLNESS This is a pleasant 64-year-old male past medical history significant for coronary artery disease status post multiple PCI, ischemic cardiomyopathy, hypertension, dyslipidemia and former nicotine dependence. He follows in the office with Dr. Canada. We have been asked to see in consultation for chest pain. Most recent cardiac catheterization performed in November 2018 at that time he underwent PCI of the OM and RCA just prior to that he underwent stenting of the LAD. He states yesterday he shoveled snow on the morning. He had no chest pain, shortness of breath, diaphoresis or palpitations while shoveling. A couple of hours later while making his symptoms started feeling a discomfort in his left arm. It was from the elbow to the hand. He took one sublingual nitroglycerin and his symptoms subsided. About 15 minutes later a discomfort in the arm returned prompting him to take a second nitroglycerin. After taking the second nitroglycerin the pain again resolved and he came to the hospital for further evaluation. He said no further symptoms of chest pain since arriving at the hospital. DIAGNOSTICS EKG reveals sinus mechanism no acute ST or T wave abnormalities noted. Chest xray negative for an acute cardiopulmonary process. Laboratory reviewed, CBC unremarkable, sodium 135, potassium 4.3, creatinine 0.4, cardiac enzymes negative 2, LDL 99. Current cardiac medications include amlodipine 10 mg at bedtime, Aldactone 25 mg daily, losartan 100 mg daily, Plavix 75 mg daily, carvedilol 25 mg twice a day, aspirin 81 mg daily. In the past has been on a statin however had significant for extremity cramping and weakness. Most recent echocardiogram was in November 2018 reveals impaired LV systolic function ejection fraction 30-35%, apical septal LV wall motion hypokinesia, mild to moderate TR with no evidence of pulmonary hypertension. REVIEW OF SYSTEMS At the time of my exam: CONSTITUTIONAL: Denies fever or chills. CARDIOVASCULAR: Denies chest pain, shortness of breath, orthopnea, PND or palpitations. RESPIRATORY: Denies cough. GASTROINTESTINAL: Denies abdominal pain, diarrhea, constipation, nausea or vomiting. MUSCULOSKELETAL: Denies myalgias. NEUROLOGIC: Denies numbness, tingling or weakness. ENDOCRINE: Denies fatigue, weight change, polydipsia or polyurina. GENITOURINARY: Denies burning, hematuria or urgency with micturation. HEMATOLOGIC: Denies history of anemia or bleeding. PHYSICAL EXAMINATION Blood pressure 115/67 heart rate 59 afebrile and maintaining oxygen saturation on room air. CONSTITUTIONAL: No apparent distress. HEENT: Head is normocephalic. Pupils are equal, round. Sclerae anicteric. Mucous membranes of the mouth are moist. No JVD. No carotid bruit. CHEST EXAMINATION: Lungs are clear to auscultation. No chest wall tenderness is noted on palpation or with deep breathing. HEART EXAMINATION: Regular rate and rhythm. S1, S2 heard. No murmurs, gallops or rub. ABDOMEN: Soft, nontender. Positive bowel sounds. EXTREMITIES: 2+ peripheral pulses, no lower extremity edema and no calf tende rness. NEUROLOGIC EXAMINATION: Patient is awake, alert and oriented x3. ASSESSMENT Chest pain, atypical. An acute event has been ruled out. History of coronary artery disease status post multiple PCI Hypertension Dyslipidemia Ischemic cardiomyopathy, ejection fraction 30-35%. PLAN An acute coronary event has been ruled out. Perform Lexiscan stress test to assess for stress-induced reversible ischemia. If stress test is abnormal we will consider coronary angiography. Discussed in great detail with the patient the need for statin medication. He is agreeable to attempt pravastatin 10 mg daily. We will continually reassess for myopathies. If he is intolerant to pravastatin we will consider repatha. Thank you kindly for this consultation. Nurse Practitioner note has been reviewed, I agree with a documented findings and plan of care. Patient was seen and examined. Past Medical History Past Medical History: Hyperlipidemia, Hypertension Additional Past Medical History / Comment(s): BACK PAIN; FAMILY HX OF DM - PT ST ATES THAT HE PERIODICALLY CHECKS HIS CBG AND IT IS SOMETIMES "HIGH" Last Myocardial Infarction Date:: 2018 History of Any Multi-Drug Resistant Organisms: None Reported Past Surgical History: Adenoidectomy, Heart Catheterization With Stent, Orthopedic Surgery, Tonsillectomy Additional Past Surgical History / Comment(s): FINGER ON LEFT HAND SEWN ON - 1979; [address] - [address] AYON ALL OF THEM IN - 1ST ONE IN 2001 AND LAST ONE IN 2010, 3 stents November 2018 Past Anesthesia/Blood Transfusion Reactions: No Reported Reaction Date of Last Stent Placement:: 2010 Past Psychological History: No Psychological Hx Reported Smoking Status: Current some day smoker Past Alcohol Use History: None Reported Past Drug Use History: None Reported - Past Family History Father Family Medical History: Hypertension Additional Family Medical History / Comment(s): VALVE Mother Family Medical History: Coronary Artery Disease (CAD), Diabetes Mellitus Additional Family Medical History / Comment(s): CABG Medications and Allergies Home Medications Medication Instructions Recorded Confirmed Type Nitroglycerin Sl Tabs [Nitrostat] 0.4 mg SUBLINGUAL Q5M PRN #25 tab 12/23/18 01/25/20 Rx Losartan Potassium 100 mg PO DAILY@1500 12/24/18 01/25/20 History Aspirin EC [Ecotrin Low Dose] 81 mg PO DAILY@0900 01/25/20 01/25/20 History Carvedilol [Coreg] 25 mg PO BID@0900,209901/25/20 01/25/20 History Clopidogrel Bisulfate [Plavix] 75 mg PO HS@209901/25/20 01/25/20 History Spironolactone [Aldactone] 25 mg PO DAILY@0900 01/25/20 01/25/20 History amLODIPine [Norvasc] 10 mg PO HS@209901/25/20 01/25/20 History Pravastatin Sodium [Pravachol] 10 mg PO DAILY #90 tab 01/26/20 Rx Allergies Allergy/AdvReac Type Severity Reaction Status Date / Time Sulfa (Sulfonamide AdvReac HIGH FEVER Verified 01/25/20 23:47 Antibiotics) Physical Exam Vitals: Vital Signs Temp Pulse Pulse Pulse Pulse Resp BP 01/26/20 07:31 98.2 F 59 L 18 01/26/20 04:00 97.9 F 57 L 17 01/25/20 23:55 98.1 F 71 17 01/25/20 22:59 98.3 F 75 16 167/91 01/25/20 20:59 98.6 F 66 18 186/96 BP Pulse Ox 01/26/20 07:31 115/67 96 01/26/20 04:00 100/58 97 01/25/20 23:55 165/71 97 01/25/20 22:59 95 01/25/20 20:59 96 Intake and Output 01/25/20 01/26/20 01/26/20 22:59 06:59 14:59 Other: Voiding Method Toilet # Voids 1 Weight 81.647 kg 85.2 kg Results 01/25/20 21:09 01/25/20 21:09 Cardiac Enzymes 01/25/20 01/25/20 01/26/20 Range/Units 21:09 21:09 02:38 AST 21 (17-59) U/L Troponin I <0.012 <0.012 (0.000-0.034) ng/mL Coagulation 01/25/20 Range/Units 21:09 PT 10.4 (9.0-12.0) sec APTT 24.4 (22.0-30.0) sec Lipids 01/26/20 Range/Units 02:38 Triglycerides 181 H (<150) mg/dL Cholesterol 162 (<200) mg/dL HDL Cholesterol 27 L (40-60) mg/dL CBC 01/25/20 Range/Units 21:09 WBC 7.7 (3.8-10.6) k/uL RBC 5.19 (4.30-5.90) m/uL Hgb 15.9 (13.0-17.5) gm/dL Hct 45.8 (39.0-53.0) % Plt Count 171 (150-450) k/uL Comprehensive Metabolic Panel 01/25/20 Range/Units 21:09 Sodium 135 L (137-145) mmol/L Potassium 4.3 (3.5-5.1) mmol/L Chloride 101 (98-107) mmol/L Carbon Dioxide 25 (22-30) mmol/L BUN 20 (9-20) mg/dL Creatinine 0.84 (0.66-1.25) mg/dL Glucose 188 H (74-99) mg/dL Calcium 9.6 (8.4-10.2) mg/dL AST 21 (17-59) U/L ALT 22 (4-49) U/L Alkaline Phosphatase 75 (38-126) U/L Total Protein 6.7 (6.3-8.2) g/dL Albumin 4.1 (3.5-5.0) g/dL Current Medications Generic Name Dose Route Start Last Admin Trade Name Freq PRN Reason Stop Dose Admin Amlodipine Besylate 10 mg 01/26/20 00:21 01/26/20 00:35 Norvasc PO 10 mg HS@2100 EARL Administration Aspirin 325 mg 01/26/20 09:00 Aspirin PO DAILY [facility] Carvedilol 25 mg 01/26/20 00:21 01/26/20 00:35 Coreg PO 25 mg AC-BID EARL Administration Clopidogrel Bisulfate 75 mg 01/26/20 00:21 01/26/20 00:35 Plavix PO 75 mg HS@2100 EARL Administration Sodium Chloride 1,000 mls @ 75 mls/hr 01/26/20 00:30 01/26/20 00:35 Saline 0.9% IV 75 mls/hr .[id number] EARL Administration Losartan Potassium 100 mg 01/26/20 15:00 Cozaar PO DAILY@1500 [facility] Nitroglycerin 0.4 mg 01/25/20 22:24 Nitrostat SUBLINGUAL Q5M PRN Chest Pain Intake and Output 01/25/20 01/26/20 01/26/20 22:59 06:59 14:59 Other: Voiding Method Toilet # Voids 1 Weight 81.647 kg 85.2 kg 01/25/20 21:09 01/25/20 21:09
[2020-01-26 12:04] VITALS: BP 167/73; PULSE 65
--- NOTE | 2020-01-26 12:09 | NM ---
EXAMINATION TYPE: NM stress lexiscan cardiolite DATE OF EXAM: 01/26/2020 COMPARISON: 01/12/2019 HISTORY: Chest pain TECHNIQUE: After the intravenous administration of 9.3 mCi Tc 99m Sestamibi - Cardiolite resting SPE CT images acquired 45 minutes post injection. The patient received 0.4mg Lexiscan, 27.3 mCi Tc 99m Sestamibi - Stress images obtained [address] injection FINDINGS: No fixed or reversible perfusion defects are evident. Gated wall motion is normal. Ejection fraction of 64% is normal. IMPRESSION: 1. No stress-induced ischemic changes.
--- NOTE | 2020-01-26 13:20 | P.HPIM ---
History of Present Illness Patient is a pleasant 62-year-old male came in with compensative chest pain which started yesterday morning while he was shoveling snow denied any short of breath diaphoresis or palpitations. His chest pain radiated to the left arm lasted for couple hours nonpleuritic not associated with food rule out a concurrent syndromes after after which patient underwent stress test which was negative patient is being discharged today patient did take nitroglycerin after second nitroglycerin his chest pain resolved because of some typical features of his chest and patient underwent stress test. Patient does have history of coronary artery disease with PCI and the history of ischemic cardiac myopathy Review of Systems REVIEW OF SYSTEMS: CONSTITUTIONAL: No fever, no malaise, no fatigue. HEENT: No recent visual problems or hearing problems. Denied any sore throat. CARDIOVASCULAR: No chest pain, orthopnea, PND, no palpitations, no syncope. PULMONARY: No shortness of breath, no cough, no hemoptysis. GASTROINTESTINAL: No diarrhea, no nausea, no vomiting, no abdominal pain. NEUROLOGICAL: No headaches, no weakness, no numbness. HEMATOLOGICAL: Denies any bleeding or petechiae. GENITOURINARY: Denies any burning micturition, frequency, or urgency. MUSCULOSKELETAL/RHEUMATOLOGICAL: Denies any joint pain, swelling, or any muscle pain. ENDOCRINE: Denies any polyuria or polydipsia. The rest of the 14-point review of systems is negative. Past Medical History Past Medical History: Hyperlipidemia, Hypertension Additional Past Medical History / Comment(s): BACK PAIN; FAMILY HX OF DM - PT STATES THAT HE PERIODICALLY CHECKS HIS CBG AND IT IS SOMETIMES "HIGH" Last Myocardial Infarction Date:: 2018 History of Any Multi-Drug Resistant Organisms: None Reported Past Surgical History: Adenoidectomy, Heart Catheterization With Stent, Orthopedic Surgery, Tonsillectomy Additional Past Surgical History / Comment(s): FINGER ON LEFT HAND SEWN ON - 1979; 5 STENTS - [address] AYON ALL OF THEM IN - 1ST ONE IN 2001 AND LAST ONE IN 2010, 3 stents November 2018 Past Anesthesia/Blood Transfusion Reactions: No Reported Reaction Date of Last Stent Placement:: 2010 Past Psychological History: No Psychological Hx Reported Smoking Status: Current some day smoker Past Alcohol Use History: None Reported Past Drug Use History: None Reported - Past Family History Father Family Medical History: Hypertension Additional Family Medical History / Comment(s): VALVE Mother Family Medical History: Coronary Artery Disease (CAD), Diabetes Mellitus Additional Family Medical History / Comment(s): CABG Medications and Allergies Home Medications Medication Instructions Recorded Confirmed Type Nitroglycerin Sl Tabs [Nitrostat] 0.4 mg SUBLINGUAL Q5M PRN #25 tab 12/23/18 01/25/20 Rx Losartan Potassium 100 mg PO DAILY@1500 12/24/18 01/25/20 History Aspirin EC [Ecotrin Low Dose] 81 mg PO DAILY@0900 01/25/20 01/25/20 History Carvedilol [Coreg] 25 mg PO BID@0900,209901/25/20 01/25/20 History Clopidogrel Bisulfate [Plavix] 75 mg PO HS@209901/25/20 01/25/20 History Spironolactone [Aldactone] 25 mg PO DAILY@0900 01/25/20 01/25/20 History amLODIPine [Norvasc] 10 mg PO HS@209901/25/20 01/25/20 History Pravastatin Sodium [Pravachol] 10 mg PO DAILY #90 tab 01/26/20 Rx Allergies Allergy/AdvReac Type Severity Reaction Status Date / Time Sulfa (Sulfonamide AdvReac HIGH FEVER Verified 01/25/20 23:47 Antibiotics) Physical Exam Vitals: Vital Signs Temp Pulse Pulse Pulse Pulse Resp BP 01/26/20 12:00 98.2 F 65 18 01/26/20 07:31 98.2 F 59 L 18 01/26/20 04:00 97.9 F 57 L 17 01/25/20 23:55 98.1 F 71 17 01/25/20 22:59 98.3 F 75 16 167/91 01/25/20 20:59 98.6 F 66 18 186/96 BP Pulse Ox 01/26/20 12:00 167/73 96 01/26/20 07:31 115/67 96 01/26/20 04:00 100/58 97 01/25/20 23:55 165/71 97 01/25/20 22:59 95 01/25/20 20:59 96 Intake and Output 01/25/20 01/26/20 01/26/20 22:59 06:59 14:59 Other: Voiding Method Toilet Toilet # Voids 1 Weight 81.647 kg 85.2 kg 85.2 kg PHYSICAL EXAMINATION: GENERAL: The patient is alert and oriented x3, not in any acute distress. Well developed, well nourished. HEENT: Pupils are round and equally reacting to light. EOMI. No scleral icterus. No conjunctival pallor. Normocephalic, atraumatic. No pharyngeal erythema. No thyromegaly. CARDIOVASCULAR: S1 and S2 present. No murmurs, rubs, or gallops. PULMONARY: Chest is clear to auscultation, no wheezing or crackles. ABDOMEN: Soft, nontender, nondistended, normoactive bowel sounds. No palpable organomegaly. MUSCULOSKELETAL: No joint swelling or deformity. EXTREMITIES: No cyanosis, clubbing, or pedal edema. NEUROLOGICAL: Gross neurological examination did not reveal any focal deficits. SKIN: No rashes. Results CBC & Chem 7: 01/25/20 21:09 01/25/20 21:09 Labs: Abnormal Lab Results - Last 24 Hours (Table) 01/25/20 01/26/20 Range/Units 21:09 02:38 Sodium 135 L (137-145) mmol/L Glucose 188 H (74-99) mg/dL Triglycerides 181 H (<150) mg/dL HDL Cholesterol 27 L (40-60) mg/dL Thrombosis Risk Factor Assmnt - Choose All That Apply Any of the Below Risk Factors Present?: Yes Each Factor Represents 1 point: Obesity (BMI >25), Varicose veins Other Risk Factors: Yes Each Risk Factor Represents 2 Points: Age 61-74 years Other congenital or acquired thrombophilia - If yes, enter type in comment: No Thrombosis Risk Factor Assessment Total Risk Factor Score: 4 Thrombosis Risk Factor Assessment Level: Moderate Risk Assessment and Plan Plan: -Chest pain rule out acute, syndromes patient underwent stress test and the stresses is negative patient will be discharged today -History of coronary artery disease -Ischemic myelopathy chronic systolic dysfunction EF of around 30-35% not in acute exacerbation of heart failure at this time -hypertension -dyslipidemia 10 continued nicotine use: Counseling was provided Patient will be discharged today
--- NOTE | 2020-01-26 13:21 | P.DS ---
Providers Date of admission: 01/25/20 22:28 Attending physician: Arthur Root Consults: 01/25/20 22:24 Consult Physician Urgent Consulting Provider: Lawrence Canada Consult Reason/Comments: known Do you want consulting provider notified?: Yes Primary care physician: Brayden Bains [facility] Course: Refer to [facility] for further details Patient Condition at Discharge: Undetermined Plan - Discharge Summary Discharge Rx Participant: No New Discharge Prescriptions: New Pravastatin Sodium [Pravachol] 10 mg PO DAILY #90 tab No Action Nitroglycerin Sl Tabs [Nitrostat] 0.4 mg SUBLINGUAL Q5M PRN #25 tab PRN Reason: Chest Pain Losartan Potassium 100 mg PO DAILY@1500 amLODIPine [Norvasc] 10 mg PO HS@2100 Carvedilol [Coreg] 25 mg PO BID@0900,2100 Aspirin EC [Ecotrin Low Dose] 81 mg PO DAILY@0900 Clopidogrel Bisulfate [Plavix] 75 mg PO HS@2100 Spironolactone [Aldactone] 25 mg PO DAILY@0900 Discharge Medication List Nitroglycerin Sl Tabs [Nitrostat] 0.4 mg SUBLINGUAL Q5M PRN #25 tab 12/23/18 [Rx] Losartan Potassium 100 mg PO DAILY@1500 12/24/18 [History] Aspirin EC [Ecotrin Low Dose] 81 mg PO DAILY@0900 01/25/20 [History] Carvedilol [Coreg] 25 mg PO BID@0900,209901/25/20 [History] Clopidogrel Bisulfate [Plavix] 75 mg PO HS@209901/25/20 [History] Spironolactone [Aldactone] 25 mg PO DAILY@0900 01/25/20 [History] amLODIPine [Norvasc] 10 mg PO HS@209901/25/20 [History] Pravastatin Sodium [Pravachol] 10 mg PO DAILY #90 tab 01/26/20 [Rx] Follow up Appointment(s)/Referral(s): Lawrence Canada MD [STAFF PHYSICIAN] - 2 Weeks Brayden Bains MD [Primary Care Provider] - 1-2 days
[2020-01-26] MEDS ORDERED: LOSARTAN 50 MG TAB PO SCH (15:00)
--- NOTE | 2020-01-26 17:30 | EST ---
EXERCISE STRESS AGE: 64 SEX: Male HT: 67" WT: 180 PROTOCOL: Lexiscan Cardiolite STAGE: DURATION OF EXERCISE: HEART RATE REST: 62 BLOOD PRESSURE REST: 153/78 MAXIMUM HEART RATE ACHIEVED: 94 MAXIMUM BLOOD PRESSURE: 162/82 85% MPHR: 100% MPHR: METS: INDICATIONS: Chest pain and arm pain. CLINICAL INFORMATION: Patient admitted with chest and arm discomfort. History of coronary artery disease. He underwent a Lexiscan stress test. Baseline heart rate 62 beats per minute. Baseline blood pressure 153/78 mmHg. Baseline 12-lead ECG shows normal sinus rhythm with normal cardiac intervals. Patient received Lexiscan infusion per protocol. No change in heart rate or blood pressure. No ST-segment abnormalities. Nuclear portion will be reported separately. MMODL / IJN: [id number] /
[2020-01-27] MEDS ORDERED: ASPIRIN 81 MG PO SCH (09:00)
== END 2020-01-26 14:01 | disposition home or self-care (01) ==
LOC: EC 20:56 → 1SOBS 22:28
PROVIDERS: ADMIT Hospitalist; ATTEND Hospitalist
DX: I20.0 Unstable angina (principal); R11.0 Nausea; R06.00 Dyspnea, unspecified; R00.2 Palpitations; I10 Essential (primary) hypertension; I25.5 Ischemic cardiomyopathy; Z95.5 Presence of coronary angioplasty implant and graft; F17.200 Nicotine dependence, unspecified, uncomplicated; E78.00 Pure hypercholesterolemia, unspecified; E78.5 Hyperlipidemia, unspecified; Z83.3 Family history of diabetes mellitus; Z82.49 Family history of ischemic heart disease and other diseases of the circulatory system; Z79.02 Long term (current) use of antithrombotics/antiplatelets; Z79.82 Long term (current) use of aspirin; Z79.899 Other long term (current) drug therapy; Z88.2 Allergy status to sulfonamides; Z88.8 Allergy status to other drugs, medicaments and biological substances
CPT/HCPCS: 93005 ×2; 96360; 99291; 36415; 93017; 83880; 80061; 80053; 83690; 83735; 84484 ×2; 85025; 85610; 85730; 71046; 78452; G0378 ×2; A9500; J1245; J2785

== ENCOUNTER 2020-09-06 20:33 | Observation (INO) | payer MEDICARE ==
[2020-09-06] MEDS ORDERED: ASPIRIN 81 MG PO STA (20:42)
[2020-09-06 21:12] LABS: Basophils # (A) 0.1 k/uL (0-0.2); Basophils % (A) 1 %; Eosinophils # (A) 0.2 k/uL (0-0.7); Eosinophils % (A) 3 %; HCT 47.8 % (39.0-53.0); HGB 16.2 gm/dL (13.0-17.5); Lymphocytes # (A) 1.4 k/uL (1.0-4.8); Lymphocytes % (A) 24 %; MCH 31.2 pg (25.0-35.0); MCHC 33.9 g/dL (31.0-37.0); MCV 92.1 fL (80.0-100.0); Mean Platelet Volume 8.1; Monocytes # (A) 0.3 k/uL (0-1.0); Monocytes % (A) 6 %; Neutrophils # (A) 3.6 k/uL (1.3-7.7); Neutrophils % (A) 65 %; Platelet Count 143 k/uL (150-450); RBC 5.19 m/uL (4.30-5.90); RDW 12.8 % (11.5-15.5); WBC 5.5 k/uL (3.8-10.6)
[2020-09-06] MEDS ORDERED: NITROGLYCERIN SL TABS 0.4 MG TAB SUBLINGUAL PRN (21:17)
[2020-09-06 21:18] LABS: ALT 19 U/L (4-49); AST 18 U/L (17-59); African American GFR (CKD) >90 (>60 ml/min/1.73 sqM); Albumin 4.1 g/dL (3.5-5.0); Alkaline Phosphatase 60 U/L (38-126); Anion Gap 5 mmol/L; Blood Urea Nitrogen 15 mg/dL (9-20); Calcium 9.2 mg/dL (8.4-10.2); Carbon Dioxide 25 mmol/L (22-30); Chloride 105 mmol/L (98-107); Glucose 169 mg/dL (74-99); Non-African American GFR(CKD) >90 (>60 ml/min/1.73 sqM); Potassium 4.1 mmol/L (3.5-5.1); Sodium 135 mmol/L (137-145); Total Bilirubin 0.5 mg/dL (0.2-1.3); Total Protein 6.5 g/dL (6.3-8.2)
[2020-09-06 21:27] LABS: Partial Thromboplastin Time 24.2 sec (22.0-30.0); Prothrombin Time 10.4 sec (9.0-12.0)
--- NOTE | 2020-09-06 21:27 | ED ---
Chest Pain HPI - General Chief Complaint: Chest Pain Stated Complaint: CHEST PAIN Time Seen by Provider: 09/06/20 20:42 Source: patient, EMS Mode of arrival: EMS Limitations: no limitations - History of Present Illness Initial Comments: 65-year-old male with significant cardiac history with 8 stents placed last being one year ago, with history of HTN, on daily asprin no thinners presenting to the ER today for cc of right sided chest pain. Patient states on and off for the past 2 days he has had a sharp sporadic right-sided chest pain he states when is not sharp is a times tingly and achy. He denies any chest pressure. Patient states he feels it may be result of a sinus infection where he had a cough for the past 2 weeks he states the past week the cough is been significantly better he denies any fevers he states he feels he may have strained something. Patient denies any ripping tearing back pain, increase pain with deep inspiration current cough leg swelling history of cancer DVT or pulmonary embolism he denies any shortness of breath but does state he made a drive her proximal a 3 and half hours from [place] to [place] last Thursday. He states he did take a break during the drive to stretch legs, denies recent surgeries. She states that the pain today does not feel like his previous myocardial infarctions. Patient states he did take a nitroglycerin when the pain was present 3 hours ago, which seemed to help minimally. Patient denies current chest pain and appears nontoxic, not diaphoretic in no acute distress on arrival. - Related Data Home Medications Medication Instructions Recorded Confirmed Losartan Potassium 100 mg PO DAILY 12/24/18 09/06/20 Aspirin EC [Ecotrin Low Dose] 81 mg PO DAILY 01/25/20 09/06/20 Carvedilol [Coreg] 25 mg PO BID 01/25/20 09/06/20 Spironolactone [Aldactone] 25 mg PO DAILY 01/25/20 09/06/20 amLODIPine [Norvasc] 10 mg PO HS 01/25/20 09/06/20 Meclizine HCl 25 mg PO DAILY PRN 09/06/20 09/06/20 Previous Rx's Medication Instructions Recorded Nitroglycerin Sl Tabs [Nitrostat] 0.4 mg SUBLINGUAL Q5M PRN #25 tab 12/23/18 Allergies Allergy/AdvReac Type Severity Reaction Status Date / Time Sulfa (Sulfonamide AdvReac HIGH FEVER Verified 09/06/20 21:43 Antibiotics) Review of Systems ROS Statement: Those systems with pertinent positive or pertinent negative responses have been documented in the HPI. ROS Other: All systems not noted in ROS Statement are negative. Past Medical History Past Medical History: Hyperlipidemia, Hypertension Additional Past Medical History / Comment(s): BACK PAIN; FAMILY HX OF DM - PT STATES THAT HE PERIODICALLY CHECKS HIS CBG AND IT IS SOMETIMES "HIGH" Last Myocardial Infarction Date:: 2018 History of Any Multi-Drug Resistant Organisms: None Reported Past Surgical History: Adenoidectomy, Heart Catheterization With Stent, Orth opedic Surgery, Tonsillectomy Additional Past Surgical History / Comment(s): FINGER ON LEFT HAND SEWN ON - 1979; 5 STENTS - [address] AYON ALL OF THEM IN - 1ST ONE IN 2001 AND LAST ONE IN 2010, 3 stents November 2018 Past Anesthesia/Blood Transfusion Reactions: No Reported Reaction Date of Last Stent Placement:: 2010 Past Psychological History: No Psychological Hx Reported Past Alcohol Use History: None Reported Past Drug Use History: None Reported - Past Family History Father Family Medical History: Hypertension Additional Family Medical History / Comment(s): VALVE Mother Family Medical History: Coronary Artery Disease (CAD), Diabetes Mellitus Additional Family Medical History / Comment(s): CABG General Exam - General Exam Comments Initial Comments: General: The patient is awake and alert, in no distress Eye: +3 mm pupils are equal, round and reactive to light, extra-ocular movements are intact. No nystagmus. There is normal conjunctiva bilaterally. No signs of icterus. Ears, nose, mouth and throat: There are moist mucous membranes and no oral lesions. Neck: The neck is supple, there is no tenderness or JVD. Cardiovascular: There is a regular rate and rhythm. No murmur, rub or gallop is appreciated. Respiratory: Lungs are clear to auscultation, respirations are non-labored, breath sounds are equal. No wheezes, stridor, rales, or rhonchi. Gastrointestinal: Soft, non-distended, non-tender abdomen without masses or organomegaly noted. There is no rebound or guarding present. Musculoskeletal: Normal ROM, no tenderness. Strength 5/5. Sensation intact. Radial and DP pulses equal bilaterally 2+. Neurological: A&O x 3. CN II-XII intact grossly, There are no obvious motor or sensory deficits. Coordination appears grossly intact. Speech is normal. Skin: Skin is warm and dry and no rashes or lesions are noted. No LE edema. No calf pain or swelling. Psychiatric: Cooperative, appropriate mood & affect, normal judgment. Limitations: no limitations Course Vital Signs 09/06/20 20:35 Temperature 98.5 F Pulse Rate 58 L Respiratory 18 Rate Blood Pressure 167/84 O2 Sat by Pulse 95 Oximetry Chest Pain MDM - MDM Trop (-). Dimer (-). CXR clear. No skin changes over chest wall. Pt has significant cardiac history with presentation of chest pain although felt to be atypical will admit for ACS r/o. EKG does not reflect ST changes. Patient is agreeable to admission and care plan. No current chest pain in the ER. Will trend troponins which have been ordered. Patient agreeable to admission and care plan. Ventricular rate 56 bpm, RI interval 164 ms QR protestant 92 ms, QT/QTC 410/395 ms. This is sinus bradycardia with nonspecific T-wave abnormalities no contiguous changes S elevation or depression Disposition Clinical Impression: Chest discomfort Disposition: ADMITTED IP TO THIS HOSP Condition: Stable Is patient prescribed a controlled substance at d/c from ED?: No Time of Disposition: 22:01 Decision to Admit Reason: Admit from EC Decision Date: 09/06/20 Decision Time: 22:05
--- NOTE | 2020-09-06 21:34 | XR ---
EXAMINATION: XR chest 2V DATE AND TIME: 09/06/2020 9:18 PM CLINICAL INDICATION: PHH; Chest Pain TECHNIQUE: Departmental protocol COMPARISON: 01/25/2020 FINDINGS: The lungs are clear. The pleural spaces are negative. The cardiac silhouette is not enlarged. The remainder of the mediastinal silhouette is unremarkable. The skeletal structures and soft tissues are negative for acute findings. IMPRESSION: NO ACUTE PROCESS.
[2020-09-07 04:26] LABS: Cholesterol 155 mg/dL (<200); HDL Cholesterol 31 mg/dL (40-60); LDL Cholesterol,Calculated 101 mg/dL (0-99); Triglycerides 115 mg/dL (<150)
[2020-09-07] MEDS ORDERED: NITROGLYCERIN SL TABS 0.4 MG TAB SUBLINGUAL PRN (04:31)
[2020-09-07] MEDS ORDERED: MECLIZINE 25 MG TAB PO PRN (04:31)
--- NOTE | 2020-09-07 04:35 | P.HPIM ---
History of Present Illness H&P Date: 09/07/20 Patient is a 64-year-old male with a PMH of hypertension, coronary artery disease status post 8 stents, and hyper lipidemia presented to the ED with complaints of chest and shoulder pain. The patient notes that his discomfort started 2 days ago when he developed the sharp right shoulder pain. Pain was not associated with movement of the shoulder, though he did attribute it to a persistent cough over the past 1 week. Earlier today, the pain also started occurring in the substernal region, also sharp in nature, nonradiating, without associated shortness of breath, palpitations, nausea, vomiting, diaphoresis. Denied tearing pain or pain radiating to the back. Also denied fever, chills, dizziness, abdominal pain, or diarrhea. Patient is nonpleuritic, rated as a 3-4 out of 10, with no clear alleviating or exacerbating features. He notes that this is unlike any chest pain he has previously had. Reports that his cough is improved significantly and is essentially now resolved. In the emergency room and EKG reveals sinus bradycardia at 56 bpm with T-wave inversion in leads V1 and V2 with flattening in lead V3. Chest x-ray was unremarkable. Laboratory evaluation was reviewed with troponin less than 0.012, sodium 135, potassium 4.1, WBC count 12.5, hemoglobin 16.2, and platelets 143. Review of Systems Pertinent positives and negatives as discussed in HPI, a complete review of systems was performed and all other systems are negative. Past Medical History Past Medical History: Hyperlipidemia, Hypertension Additional Past Medical History / Comment(s): BACK PAIN; FAMILY HX OF DM - PT STATES THAT HE PERIODICALLY CHECKS HIS CBG AND IT IS SOMETIMES "HIGH" Last Myocardial Infarction Date:: 2018 History of Any Multi-Drug Resistant Organisms: None Reported Past Surgical History: Adenoidectomy, Heart Catheterization With Stent, Orthopedic Surgery, Tonsillectomy Additional Past Surgical History / Comment(s): FINGER ON LEFT HAND SEWN ON - 1979; 5 STENTS - [address] AYON ALL OF THEM IN - 1ST ONE IN 2001 AND LAST ONE IN 2010, 3 stents November 2018 Past Anesthesia/Blood Transfusion Reactions: No Reported Reaction Date of Last Stent Placement:: 2010 Past Psychological History: No Psychological Hx Reported Past Alcohol Use History: None Reported Past Drug Use History: None Reported - Past Family History Father Family Medical History: Hypertension Additional Family Medical History / Comment(s): VALVE Mother Family Medical History: Coronary Artery Disease (CAD), Diabetes Mellitus Additional Family Medical History / Comment(s): CABG Medications and Allergies Home Medications Medication Instructions Recorded Confirmed Type Nitroglycerin Sl Tabs [Nitrostat] 0.4 mg SUBLINGUAL Q5M PRN #25 tab 12/23/18 09/06/20 Rx Losartan Potassium 100 mg PO DAILY 12/24/18 09/06/20 History Aspirin EC [Ecotrin Low Dose] 81 mg PO DAILY 01/25/20 09/06/20 History Carvedilol [Coreg] 25 mg PO BID 01/25/20 09/06/20 History Spironolactone [Aldactone] 25 mg PO DAILY 01/25/20 09/06/20 History amLODIPine [Norvasc] 10 mg PO HS 01/25/20 09/06/20 History Meclizine HCl 25 mg PO DAILY PRN 09/06/20 09/06/20 History Allergies Allergy/AdvReac Type Severity Reaction Status Date / Time Sulfa (Sulfonamide AdvReac HIGH FEVER Verified 09/06/20 21:43 Antibiotics) Physical Exam Vitals: Vital Signs Temp Pulse Pulse Resp BP BP Pulse Ox 09/06/20 22:30 97.6 F 54 L 18 165/83 95 09/06/20 22:11 54 L 18 138/92 95 09/06/20 20:35 98.5 F 58 L 18 167/84 95 Intake and Output 09/06/20 09/06/20 09/07/20 14:59 22:59 06:59 Other: Voiding Method Toilet # Voids 1 Weight 81.193 kg General: non toxic, no distress, appears at stated age, normal weight Derm: no unusual rashes/lesions no unusual ecchymoses, warm, dry Head: atraumatic, normocephalic, symmetric Eyes: EOMI, no lid lag, anicteric sclera, pupils equal round reactive to light ENT: Nose and ears atraumatic, no thrush, no pharyngeal erythema Neck: No thyromegaly, no cervical lymphadenopathy, trachea midline, supple Mouth: no lip lesion, mucus membranes moist Cardiovascular: S1S2 reg, no murmur, positive posterior tibial pulse bilateral, no edema, capillary refill less than 2 seconds Lungs: CTA bilateral, no rhonchi, no rales , no accessory muscle use Abdominal: soft, nontender to palpation, no guarding, no appreciable organomegaly, normal bowel sounds Ext: no gross muscle atrophy, muscle strength 5 out of 5 in all 4 extremities grossly, no contractures, no shoulder tenderness noted Neuro: CN II-XI grossly intact, light touch intact all 4 extremities, finger to nose within normal limits, Psych: Alert, oriented, appropriate affect Results CBC & Chem 7: 09/06/20 21:03 09/06/20 21:03 Labs: Abnormal Lab Results - Last 24 Hours (Table) 09/06/20 09/06/20 Range/Units 21:03 21:03 Plt Count 143 L (150-450) k/uL Sodium 135 L (137-145) mmol/L Glucose 169 H (74-99) mg/dL Thrombosis Risk Factor Assmnt - Choose All That Apply Any of the Below Risk Factors Present?: Yes Each Factor Represents 1 point: Obesity (BMI >25) Other Risk Factors: Yes Each Risk Factor Represents 2 Points: Age 61-74 years Thrombosis Risk Factor Assessment Total Risk Factor Score: 3 Thrombosis Risk Factor Assessment Level: Moderate Risk Assessment and Plan Plan: Chest pain, rule out ACS -Cardiology consult -Trend troponin -Cardiac monitoring -Continue with aspirin Chronic conditions: Hypertension, hyperlipidemia -Continue with home meds DVT prophylaxis -Heparin The patient is admitted with an anticipated less than 2 midnight stay for barbara luation of chest pain. CODE STATUS: full code Discussed with: Patient Anticipated discharge date: 09/[address]: Home A total of 35 minutes was spent on the care of this complex patient more than 50% of the time was spent in counseling and care coordination.
[2020-09-07 04:50] VITALS: TEMP 97.9
[2020-09-07] MEDS ORDERED: carvediloL 12.5 MG TAB PO SCH (07:30)
[2020-09-07] MEDS ORDERED: HEPARIN SODIUM,PORCINE 5,000 UNIT/ML 1 ML VIAL SQ SCH (08:00)
[2020-09-07] MEDS ORDERED: LOSARTAN 50 MG TAB PO SCH (09:00)
[2020-09-07] MEDS ORDERED: ASPIRIN 325 MG TAB PO SCH (09:00)
[2020-09-07] MEDS ORDERED: SPIRONOLACTONE 25 MG TAB PO SCH (09:00)
--- NOTE | 2020-09-07 10:26 | P.CRDCN ---
History of Present Illness Consult date: 09/07/20 Consult reason: chest pain Chief complaint: Chest pain History of present illness: This is a pleasant 65-year-old gentleman who follows regularly with Dr. Dickens in the office. He has a known history of coronary artery disease with multiple PCI's in the past, in November 2018 he underwent stenting of the OM and RCA, just prior to that patient did have stenting of the LAD performed. He has known ischemic cardiomyopathy, hypertension, hyperlipidemia, prior nicotine dependence. His most recent Cris scan was performed in December 2019, no stress-induced ischemia was noted. He presents to the hospital on this occasion with symptoms of right-sided chest pain, sharp in nature. He states that he's been dealing with a sinus drainage/infection for the past 2 weeks and has been coughing considerably more than his usual. The patient also states that the pain does not reminded him of any ideas had in the past prior to his cardiac procedures. His EKG on presentation here shows a normal sinus rhythm with ST-T wave changes noted in the anterior leads similar to prior, chest x-ray did not reveal any acute process. Blood pressure this morning 164/90 with a heart rate in the 50s, temperature 90.7 0.995% on room air. White blood cell count 5.5, hemoglobin 16.2, platelet count 143, d-dimer less than 0.17, sodium 135, potassium 4.1, BUN 15, creatinine 0.7. Troponins negative 3. Cholesterol 155, HDL 31, LDL 101, triglycerides 1:15. Past Medical History Past Medical History: Hyperlipidemia, Hypertension Additional Past Medical History / Comment(s): BACK PAIN; FAMILY HX OF DM - PT STATES THAT HE PERIODICALLY CHECKS HIS CBG AND IT IS SOMETIMES "HIGH" Last Myocardial Infarction Date:: 2018 History of Any Multi-Drug Resistant Organisms: None Reported Past Surgical History: Adenoidectomy, Heart Catheterization With Stent, Orthopedic Surgery, Tonsillectomy Additional Past Surgical History / Comment(s): FINGER ON LEFT HAND SEWN ON - 1979; 5 STENTS - [address] AYON ALL OF THEM IN - 1ST ONE IN 2001 AND LAST ONE IN 2010, 3 stents November 2018 Past Anesthesia/Blood Transfusion Reactions: No Reported Reaction Date of Last Stent Placement:: 2010 Past Psychological History: No Psychological Hx Reported Past Alcohol Use History: None Reported Past Drug Use History: None Reported - Past Family History Father Family Medical History: Hypertension Additional Family Medical History / Comment(s): VALVE Mother Family Medical History: Coronary Artery Disease (CAD), Diabetes Mellitus Additional Family Medical History / Comment(s): CABG Medications and Allergies Home Medications Medication Instructions Recorded Confirmed Type Nitroglycerin Sl Tabs [Nitrostat] 0.4 mg SUBLINGUAL Q5M PRN #25 tab 12/23/18 09/06/20 Rx Losartan Potassium 100 mg PO DAILY 12/24/18 09/06/20 History Aspirin EC [Ecotrin Low Dose] 81 mg PO DAILY 01/25/20 09/06/20 History Carvedilol [Coreg] 25 mg PO BID 01/25/20 09/06/20 History Spironolactone [Aldactone] 25 mg PO DAILY 01/25/20 09/06/20 History amLODIPine [Norvasc] 10 mg PO HS 01/25/20 09/06/20 History Meclizine HCl 25 mg PO DAILY PRN 09/06/20 09/06/20 History Allergies Allergy/AdvReac Type Severity Reaction Status Date / Time Sulfa (Sulfonamide AdvReac HIGH FEVER Verified 09/06/20 21:43 Antibiotics) Physical Exam Vitals: Vital Signs Temp Pulse Pulse Resp BP BP Pulse Ox 09/07/20 04:40 97.9 F 52 L 17 172/88 95 09/06/20 22:30 97.6 F 54 L 18 165/83 95 09/06/20 22:11 54 L 18 138/92 95 09/06/20 20:35 98.5 F 58 L 18 167/84 95 Intake and Output 09/06/20 09/07/20 09/07/20 22:59 06:59 14:59 Other: Voiding Method Toilet Toilet # Voids 1 2 Weight 81.193 kg PHYSICAL EXAMINATION: GENERAL: 65-year-old gentleman in no acute distress at the time of my examination HEENT: Head is atraumatic, normocephalic. Pupils equal, round. Sclera anicteric. Conjunctiva are clear. Mucous membranes of the mouth are moist. Neck is supple. There is no elevated jugular venous pressure. No carotid bruit is heard. HEART EXAMINATION: Heart S1, S2 normal. No murmur or gallop heard. CHEST EXAMINATION: Lungs are clear to auscultation and precussion. No chest wall tenderness is noted on palpation or with deep breathing. ABDOMEN: Soft, nontender. Bowel sounds are heard. No organomegaly noted. EXTREMITIES: 2+ peripheral pulses with no evidence of peripheral edema and no calf tenderness noted. NEUROLOGIC patient is awake, alert and oriented 3 . Results 09/06/20 21:03 09/06/20 21:03 Cardiac Enzymes 09/06/20 09/06/20 09/07/20 Range/Units 21:03 21:03 00:57 AST 18 (17-59) U/L Troponin I <0.012 <0.012 (0.000-0.034) ng/mL 09/07/20 Range/Units 03:19 AST (17-59) U/L Troponin I <0.012 (0.000-0.034) ng/mL Coagulation 09/06/20 Range/Units 21:03 PT 10.4 (9.0-12.0) sec APTT 24.2 (22.0-30.0) sec Lipids 09/07/20 Range/Units 03:19 Triglycerides 115 (<150) mg/dL Cholesterol 155 (<200) mg/dL HDL Cholesterol 31 L (40-60) mg/dL CBC 09/06/20 Range/Units 21:03 WBC 5.5 (3.8-10.6) k/uL RBC 5.19 (4.30-5.90) m/uL Hgb 16.2 (13.0-17.5) gm/dL Hct 47.8 (39.0-53.0) % Plt Count 143 L (150-450) k/uL Comprehensive Metabolic Panel 09/06/20 Range/Units 21:03 Sodium 135 L (137-145) mmol/L Potassium 4.1 (3.5-5.1) mmol/L Chloride 105 (98-107) mmol/L Carbon Dioxide 25 (22-30) mmol/L BUN 15 (9-20) mg/dL Creatinine 0.78 (0.66-1.25) mg/dL Glucose 169 H (74-99) mg/dL Calcium 9.2 (8.4-10.2) mg/dL AST 18 (17-59) U/L ALT 19 (4-49) U/L Alkaline Phosphatase 60 (38-126) U/L Total Protein 6.5 (6.3-8.2) g/dL Albumin 4.1 (3.5-5.0) g/dL Current Medications Generic Name Dose Route Start Last Admin Trade Name Demetrioq PRN Reason Stop Dose Admin Amlodipine Besylate 10 mg 09/07/20 21:00 Amlodipine 10 Mg Tab PO HS EARL Aspirin 325 mg 09/07/20 09:00 09/07/20 10:00 Aspirin 325 Mg Tab PO 325 mg DAILY EARL Administration Carvedilol 25 mg 09/07/20 07:30 09/07/20 07:01 Carvedilol 12.5 Mg Tab PO 25 mg BID-W/MEALS EARL Administration Heparin Sodium (Porcine) 5,000 unit 09/07/20 08:00 09/07/20 10:00 Heparin Sodium,Porcine 5,000 Unit/Ml 1 Ml Vial SQ 5,000 unit Q8HR EARL Administration Losartan Potassium 100 mg 09/07/20 09:00 09/07/20 10:00 Losartan 50 Mg Tab PO 100 mg DAILY EARL Administration Meclizine HCl 25 mg 09/07/20 04:31 Meclizine 25 Mg Tab PO DAILY PRN DIZZINESS Nitroglycerin 0.4 mg 09/06/20 21:17 Nitroglycerin Sl Tabs 0.4 Mg Tab SUBLINGUAL Q5M PRN Chest Pain Nitroglycerin 0.4 mg 09/07/20 04:31 Nitroglycerin Sl Tabs 0.4 Mg Tab SUBLINGUAL Q5M PRN Chest Pain Spironolactone 25 mg 09/07/20 09:00 09/07/20 10:00 Spironolactone 25 Mg Tab PO 25 mg DAILY EARL Administration Intake and Output 09/06/20 09/07/20 09/07/20 22:59 06:59 14:59 Other: Voiding Method Toilet Toilet # Voids 1 2 Weight 81.193 kg 09/06/20 21:03 09/06/20 21:03 EKG Interpretations (text) EKG shows a normal sinus rhythm with ST-T wave changes noted in the anterior le ads, similar to prior EKGs Assessment and Plan Plan: Assessment and plan #1 chest pain, atypical for acute coronary syndrome. Troponins are negative 3. Patient had a recent stress test performed in December of this year which was negative for any reversible ischemia #2 coronary artery disease with prior stenting of OM, RCA and LAD , most recent in 2019 #3 hypertension 4 hyperlipidemia #5 prior history of smoking #6 ischemic cardiomyopathy Plan From cardiology's perspective, patient may be able to be discharged home today, we'll make him a follow-up appointment to see Dr. Dickens in the office post discharge. DNP note has been reviewed, I agree with a documented findings and plan of care. Patient was seen and examined.
[2020-09-07 10:54] VITALS: BP 165/81; PULSE 50; RESP 18
--- NOTE | 2020-09-07 15:16 | P.DS ---
Providers Date of admission: 09/06/20 20:53 Expected date of discharge: 09/07/20 Attending physician: Maki Rosenbaum MD Consults: 09/06/20 21:17 Consult Physician Urgent Consulting Provider: Lawrence Canada Consult Reason/Comments: Chest pain r/o admit Do you want consulting provider notified?: Yes, Notify in am Primary care physician: [facility] Course: Patient is a 64-year-old male with a PMH of hypertension, coronary artery disease status post 8 stents, and hyper lipidemia presented to the ED with complaints of chest and shoulder pain. The patient notes that his discomfort started 2 days ago when he developed the sharp right shoulder pain. Pain was not associated with movement of the shoulder, though he did attribute it to a persistent cough over the past 1 week. Earlier today, the pain also started occurring in the substernal region, also sharp in nature, nonradiating, without associated shortness of breath, palpitations, nausea, vomiting, diaphoresis. Denied tearing pain or pain radiating to the back. Also denied fever, chills, dizziness, abdominal pain, or diarrhea. Patient is nonpleuritic, rated as a 3-4 out of 10, with no clear alleviating or exacerbating features. He notes that this is unlike any chest pain he has previously had. Reports that his cough is improved significantly and is essentially now resolved. In the emergency room and EKG reveals sinus bradycardia at 56 bpm with T-wave inversion in leads V1 and V2 with flattening in lead V3. Chest x-ray was unremarkable. Laboratory evaluation was reviewed with troponin less than 0.012, sodium 135, potassium 4.1, WBC count 12.5, hemoglobin 16.2, and platelets 143. D-dimer was negative. Troponin was less than 0.0123 with EKG as above. Lipid panel showed total cholesterol 155, LDL 101 and HDL 31. Cardiology evaluated the patient cleared the patient for discharge. Patient was seen and examined. No acute events overnight. Patient denies chest pain, shortness of breath or palpitations. No nausea or vomiting. No fever or chills. General: [non toxic], [no distress], [appears at stated age] Derm: [warm], [dry] Head: [atraumatic], [normocephalic], [symmetric] Eyes: [EOMI], [no lid lag], [anicteric sclera] Mouth: [no lip lesion], [mucus membranes moist] Cardiovascular: [S1S2 reg], [no murmur] Lungs: [CTA bilateral], [no rhonchi, no rales] , [no accessory muscle use] Ext: [no gross muscle atrophy], [no edema], [no contractures] Neuro: [no focal neuro deficits] Psych: [Alert], [oriented], [appropriate affect] Chest pain, rule out ACS -Cardiology consult - cleared for DC, no further workup -Troponins cycled, negative -Cardiac monitoring -Continue with aspirin Chronic conditions: Hypertension, hyperlipidemia -Continue with home meds DVT prophylaxis -Heparin [Patient admitted for chest pain. Likely musculoskeletal. ACS ruled out. Cleared by cardiology cleared. DC today. Pertinent Studies: CXR Patient Condition at Discharge: Stable Plan - Discharge Summary Discharge Rx Participant: No New Discharge Prescriptions: Continue Nitroglycerin Sl Tabs [Nitrostat] 0.4 mg SUBLINGUAL Q5M PRN #25 tab PRN Reason: Chest Pain Losartan Potassium 100 mg PO DAILY amLODIPine [Norvasc] 10 mg PO HS Carvedilol [Coreg] 25 mg PO BID Aspirin EC [Ecotrin Low Dose] 81 mg PO DAILY Spironolactone [Aldactone] 25 mg PO DAILY Meclizine HCl 25 mg PO DAILY PRN PRN Reason: DIZZINESS Discharge Medication List Nitroglycerin Sl Tabs [Nitrostat] 0.4 mg SUBLINGUAL Q5M PRN #25 tab 12/23/18 [Rx] Losartan Potassium 100 mg PO DAILY 12/24/18 [History] Aspirin EC [Ecotrin Low Dose] 81 mg PO DAILY 01/25/20 [History] Carvedilol [Coreg] 25 mg PO BID 01/25/20 [History] Spironolactone [Aldactone] 25 mg PO DAILY 01/25/20 [History] amLODIPine [Norvasc] 10 mg PO HS 01/25/20 [History] Meclizine HCl 25 mg PO DAILY PRN 09/06/20 [History] Follow up Appointment(s)/Referral(s): Lawrence Canada MD [STAFF PHYSICIAN] - 09/18/20 9:45 am Brayden Bains MD [Primary Care Provider] - 1-2 days Activity/Diet/Wound Care/Special Instructions: Diet: Cardiac follow-up PCP within 3 days of discharge. Follow-up with cardiology within 1 week of discharge. take All medications as advised. Come back to the ED or call 911 for worsening chest pain, shortness breath, palpitations or dizziness. Discharge Disposition: HOME SELF-CARE
[2020-09-07] MEDS ORDERED: amLODIPine 10 MG TAB PO SCH (21:00)
[2020-09-08] MEDS ORDERED: ASPIRIN 81 MG PO SCH (09:00)
== END 2020-09-07 14:10 | disposition home or self-care (01) ==
LOC: EC 20:33 → 3NCARDOBS 20:53
PROVIDERS: ADMIT Internal Medicine; ATTEND Internal Medicine
DX: R07.89 Other chest pain (principal); R05 Cough; M25.511 Pain in right shoulder; R00.1 Bradycardia, unspecified; R07.2 Precordial pain; I10 Essential (primary) hypertension; I25.2 Old myocardial infarction; E78.5 Hyperlipidemia, unspecified; M54.9 Dorsalgia, unspecified; I25.10 Atherosclerotic heart disease of native coronary artery without angina pectoris; I25.5 Ischemic cardiomyopathy; E66.9 Obesity, unspecified; Z68.28 Body mass index [BMI] 28.0-28.9, adult; Z95.5 Presence of coronary angioplasty implant and graft; Z79.82 Long term (current) use of aspirin; Z79.899 Other long term (current) drug therapy; Z88.2 Allergy status to sulfonamides; Z83.3 Family history of diabetes mellitus; Z82.49 Family history of ischemic heart disease and other diseases of the circulatory system; Z87.891 Personal history of nicotine dependence
CPT/HCPCS: 93005 ×2; 96372; 99285; 36415; 85379; 80061; 80053; 83735; 84484 ×2; 85025; 85610; 85730; 71046; G0378 ×2; J1644

== ENCOUNTER 2021-03-15 19:47 | Observation (INO) | payer MEDICARE ==
[2021-03-15 20:19] LABS: Basophils % (A) 1 %; Eosinophils # (A) 0.2 k/uL (0-0.7); Eosinophils % (A) 2 %; HCT 45.9 % (39.0-53.0); HGB 16.6 gm/dL (13.0-17.5); Lymphocytes # (A) 1.1 k/uL (1.0-4.8); Lymphocytes % (A) 17 %; MCH 31.9 pg (25.0-35.0); MCHC 36.2 g/dL (31.0-37.0); Mean Platelet Volume 8.4; Monocytes # (A) 0.4 k/uL (0-1.0); Monocytes % (A) 6 %; Neutrophils # (A) 4.8 k/uL (1.3-7.7); Neutrophils % (A) 73 %; Platelet Count 139 k/uL (150-450); RBC 5.21 m/uL (4.30-5.90); RDW 13.1 % (11.5-15.5); WBC 6.6 k/uL (3.8-10.6)
[2021-03-15 20:30] LABS: ALT 25 U/L (4-49); AST 23 U/L (17-59); African American GFR (CKD) >90 (>60 ml/min/1.73 sqM); Albumin 4.1 g/dL (3.5-5.0); Alkaline Phosphatase 69 U/L (38-126); Anion Gap 7 mmol/L; Blood Urea Nitrogen 18 mg/dL (9-20); Calcium 9.2 mg/dL (8.4-10.2); Carbon Dioxide 25 mmol/L (22-30); Chloride 104 mmol/L (98-107); Creatine Kinase 57 U/L (55-170); Glucose 182 mg/dL (74-99); Non-African American GFR(CKD) >90 (>60 ml/min/1.73 sqM); Potassium 4.8 mmol/L (3.5-5.1); Sodium 136 mmol/L (137-145); Total Bilirubin 0.7 mg/dL (0.2-1.3); Total Protein 6.7 g/dL (6.3-8.2)
--- NOTE | 2021-03-15 20:32 | XR ---
EXAMINATION TYPE: XR chest 2V DATE OF EXAM: 03/15/2021 COMPARISON: 09/06/2020 HISTORY: Chest pain TECHNIQUE: 2 views FINDINGS: Heart and mediastinum are normal. Lungs are clear. Diaphragm is normal. Bony thorax is inta ct. IMPRESSION: Normal chest. No change.
[2021-03-15 20:46] LABS: D-Dimer <0.17 mg/L FEU (<0.60); Partial Thromboplastin Time 24.6 sec (22.0-30.0); Prothrombin Time 10.3 sec (9.0-12.0)
--- NOTE | 2021-03-15 20:59 | ED ---
Chest Pain HPI - General Chief Complaint: Chest Pain Stated Complaint: Chest Pain Time Seen by Provider: 03/15/21 19:47 Source: patient, EMS, RN notes reviewed Mode of arrival: EMS Limitations: no limitations - History of Present Illness Initial Comments: This is a 65-year-old male with a history of cardiac disease with stents in the past for a total of 8 stents also history of one [place] in the past he states who started developing chest pain at about 5:30 PM tonight he took a nitroglycerin the pain resolved and recurred again it partially 6:45 PM he took another nitro did get somewhat better. He did call 911 and was brought here for evaluation. He currently is pain-free EMS her Kim did note that he had no changes on their monitor. He also notices blood pressure was elevated. No fevers chills nausea vomiting sweats shortness of breath or other symptoms at this time he does state the pain feels similar to prior pain he had before stenting. MD Complaint: chest pain - Related Data Home Medications Medication Instructions Recorded Confirmed Losartan Potassium 100 mg PO DAILY 12/24/18 03/15/21 Aspirin EC [Ecotrin Low Dose] 81 mg PO DAILY 01/25/20 03/15/21 Carvedilol [Coreg] 25 mg PO BID 01/25/20 03/15/21 Spironolactone [Aldactone] 25 mg PO DAILY 01/25/20 03/15/21 amLODIPine [Norvasc] 10 mg PO HS 01/25/20 03/15/21 Meclizine HCl 25 mg PO DAILY PRN 09/06/20 03/15/21 Previous Rx's Medication Instructions Recorded Nitroglycerin Sl Tabs [Nitrostat] 0.4 mg SUBLINGUAL Q5M PRN #25 tab 12/23/18 Allergies Allergy/AdvReac Type Severity Reaction Status Date / Time Sulfa (Sulfonamide AdvReac HIGH FEVER Verified 03/15/21 20:33 Antibiotics) Review of Systems ROS Statement: Those systems with pertinent positive or pertinent negative responses have been documented in the HPI. ROS Other: All systems not noted in ROS Statement are negative. EKG Findings - EKG Results: EKG: interpreted by LILIAM, sinus rhythm (EKG shows sinus bradycardia rate of 59. Interval 166 QRS duration 90 QT since QTC 398/394 evidence of old septal changes. No acute ST-T wave elevations or depressions at this time) Past Medical History Past Medical History: Hyperlipidemia, Hypertension Additional Past Medical History / Comment(s): BACK PAIN; FAMILY HX OF DM - PT STATES THAT HE PERIODICALLY CHECKS HIS CBG AND IT IS SOMETIMES "HIGH" Last Myocardial Infarction Date:: 2018 History of Any Multi-Drug Resistant Organisms: None Reported Past Surgical History: Adenoidectomy, Heart Catheterization With Stent, Orthopedic Surgery, Tonsillectomy Additional Past Surgical History / Comment(s): FINGER ON LEFT HAND SEWN ON - 1979; [address] - [address] AYON ALL OF THEM IN - 1ST ONE IN 2001 AND LAST ONE IN 2010, 3 stents November 2018 Past Anesthesia/Blood Transfusion Reactions: No Reported Reaction Date of Last Stent Placement:: 2010 Past Psychological History: No Psychological Hx Reported Smoking Status: Current some day smoker Past Alcohol Use History: None Reported Past Drug Use History: None Reported - Past Family History Father Family Medical History: Hypertension Additional Family Medical History / Comment(s): VALVE Mother Family Medical History: Coronary Artery Disease (CAD), Diabetes Mellitus Additional Family Medical History / Comment(s): CABG General Exam - General Exam Comments Initial Comments: This is a well-developed well-nourished awake alert oriented 3 male Limitations: no limitations General appearance: alert, in no apparent distress Head exam: Present: atraumatic, normocephalic, normal inspection Eye exam: Present: normal appearance, PERRL, EOMI. Absent: scleral icterus, conjunctival injection, periorbital swelling ENT exam: Present: normal exam, mucous membranes moist Neck exam: Present: normal inspection. Absent: tenderness, meningismus, lymphadenopathy Respiratory exam: Present: normal lung sounds bilaterally. Absent: respiratory distress, wheezes, rales, rhonchi, stridor Cardiovascular Exam: Present: regular rate, normal rhythm, normal heart sounds. Absent: systolic murmur, diastolic murmur, rubs, gallop, clicks GI/Abdominal exam: Present: soft, normal bowel sounds. Absent: distended, tenderness, guarding, rebound, rigid Extremities exam: Present: normal inspection, full ROM, normal capillary refill. Absent: tenderness, pedal edema, joint swelling, calf tenderness Back exam: Present: normal inspection Neurological exam: Present: alert, oriented X3, CN II-XII intact Psychiatric exam: Present: normal affect, normal mood Skin exam: Present: warm, dry, intact, normal color. Absent: rash Course Vital Signs 03/15/21 19:52 Temperature 98.5 F Pulse Rate 62 Respiratory 16 Rate Blood Pressure 164/83 O2 Sat by Pulse 96 Oximetry Chest Pain MDM - MDM Imaging reviewed no acute findings. Patient does have no further episodes of pain the presentation however is consistent with unstable angina patient has agreed to stay for further evaluation I did discuss the case with Dr. Lane covering for Dr. Alba Critical Care Time Critical Care Time: Yes Total Critical Care Time: 31 Critical Care Time: This does include initial presentation with history physical labs x-rays discussed with paramedics reevaluation the patient. Discussed with the beta physician admission orders and documentation of the above Disposition Clinical Impression: Unstable angina pectoris, Chest pain Disposition: ADMITTED IP TO THIS HOSP Condition: Fair Referrals: Brandon Mcintyre MD [Primary Care Provider] - 1-2 days
[2021-03-15] MEDS ORDERED: HEPARIN SODIUM 1,000 UN/ML (10ML VL) IV ONE (21:00)
[2021-03-15] MEDS ORDERED: NITROGLYCERIN SL TABS 0.4 MG TAB SUBLINGUAL PRN (21:00)
[2021-03-15] MEDS ORDERED: HEPARIN SOD,PORK IN 0.45% NACL 25,000 UNIT in 0.45% NACL 1 250ML.BAG IV SCH (21:00)
[2021-03-15] MEDS ORDERED: MECLIZINE 25 MG TAB PO PRN (21:04)
--- NOTE | 2021-03-15 21:08 | ED ---
Medical Decision Making - Lab Data Result diagrams: 03/15/21 20:07 03/15/21 20:07 Lab Results 03/15/21 03/15/21 03/15/21 Range/Units 20:07 20:07 20:07 WBC 6.6 (3.8-10.6) k/uL RBC 5.21 (4.30-5.90) m/uL Hgb 16.6 (13.0-17.5) gm/dL Hct 45.9 (39.0-53.0) % MCV 88.0 (80.0-100.0) fL MCH 31.9 (25.0-35.0) pg MCHC 36.2 (31.0-37.0) g/dL RDW 13.1 (11.5-15.5) % Plt Count 139 L (150-450) k/uL MPV 8.4 Neutrophils % 73 % Lymphocytes % 17 % Monocytes % 6 % Eosinophils % 2 % Basophils % 1 % Neutrophils # 4.8 (1.3-7.7) k/uL Lymphocytes # 1.1 (1.0-4.8) k/uL Monocytes # 0.4 (0-1.0) k/uL Eosinophils # 0.2 (0-0.7) k/uL Basophils # 0.0 (0-0.2) k/uL PT 10.3 (9.0-12.0) sec INR 1.0 (<1.2) APTT 24.6 (22.0-30.0) sec D-Dimer <0.17 (<0.60) mg/L FEU Sodium 136 L (137-145) mmol/L Potassium 4.8 (3.5-5.1) mmol/L Chloride 104 (98-107) mmol/L Carbon Dioxide 25 (22-30) mmol/L Anion Gap 7 mmol/L BUN 18 (9-20) mg/dL Creatinine 0.86 (0.66-1.25) mg/dL Est GFR (CKD-EPI)AfAm >90 (>60 ml/min/1.73 sqM) Est GFR (CKD-EPI)NonAf >90 (>60 ml/min/1.73 sqM) Glucose 182 H (74-99) mg/dL Calcium 9.2 (8.4-10.2) mg/dL Magnesium 2.0 (1.6-2.3) mg/dL Total Bilirubin 0.7 (0.2-1.3) mg/dL AST 23 (17-59) U/L ALT 25 (4-49) U/L Alkaline Phosphatase 69 (38-126) U/L Creatine Kinase 57 (55-170) U/L Troponin I (0.000-0.034) ng/mL NT-Pro-B Natriuret Pep pg/mL Total Protein 6.7 (6.3-8.2) g/dL Albumin 4.1 (3.5-5.0) g/dL 03/15/21 03/15/21 Range/Units 20:07 20:07 WBC (3.8-10.6) k/uL RBC (4.30-5.90) m/uL Hgb (13.0-17.5) gm/dL Hct (39.0-53.0) % MCV (80.0-100.0) fL MCH (25.0-35.0) pg MCHC (31.0-37.0) g/dL RDW (11.5-15.5) % Plt Count (150-450) k/uL MPV Neutrophils % % Lymphocytes % % Monocytes % % Eosinophils % % Basophils % % Neutrophils # (1.3-7.7) k/uL Lymphocytes # (1.0-4.8) k/uL Monocytes # (0-1.0) k/uL Eosinophils # (0-0.7) k/uL Basophils # (0-0.2) k/uL PT (9.0-12.0) sec INR (<1.2) APTT (22.0-30.0) sec D-Dimer (<0.60) mg/L FEU Sodium (137-145) mmol/L Potassium (3.5-5.1) mmol/L Chloride (98-107) mmol/L Carbon Dioxide (22-30) mmol/L Anion Gap mmol/L BUN (9-20) mg/dL Creatinine (0.66-1.25) mg/dL Est GFR (CKD-EPI)AfAm (>60 ml/min/1.73 sqM) Est GFR (CKD-EPI)NonAf (>60 ml/min/1.73 sqM) Glucose (74-99) mg/dL Calcium (8.4-10.2) mg/dL Magnesium (1.6-2.3) mg/dL Total Bilirubin (0.2-1.3) mg/dL AST (17-59) U/L ALT (4-49) U/L Alkaline Phosphatase (38-126) U/L Creatine Kinase (55-170) U/L Troponin I <0.012 (0.000-0.034) ng/mL NT-Pro-B Natriuret Pep 47 pg/mL Total Protein (6.3-8.2) g/dL Albumin (3.5-5.0) g/dL Disposition Clinical Impression: Unstable angina pectoris, Chest pain, Hypertension Disposition: ADMITTED IP TO THIS HOSP Condition: Fair Referrals: Brandon Mcintyre MD [Primary Care Provider] - 1-2 days
[2021-03-16] MEDS: NITROGLYCERIN OINT 1 INCH/GM PACKET TOPICAL SCH ×3 (00:12→11:26)
[2021-03-16 06:09] LABS: Cholesterol 156 mg/dL (<200); HDL Cholesterol 29 mg/dL (40-60); LDL Cholesterol,Calculated 96 mg/dL (0-99); Triglycerides 157 mg/dL (<150)
[2021-03-16] MEDS ORDERED: HEPARIN SODIUM 1,000 UN/ML (10ML VL) IV ONE (07:07)
[2021-03-16] MEDS ORDERED: carvediloL 12.5 MG TAB PO SCH (07:30)
[2021-03-16 08:22] VITALS: BP 152/76; PULSE 59; RESP 16; TEMP 98.4
[2021-03-16] MEDS ORDERED: ASPIRIN 325 MG TAB PO SCH (09:00)
[2021-03-16] MEDS ORDERED: SPIRONOLACTONE 25 MG TAB PO SCH (09:00)
[2021-03-16] MEDS ORDERED: LOSARTAN 50 MG TAB PO SCH (09:00)
[2021-03-16] MEDS ORDERED: ASPIRIN 81 MG PO SCH (09:00)
--- NOTE | 2021-03-16 11:24 | P.CRDCN ---
History of Present Illness History of present illness: HISTORY OF PRESENTING ILLNESS This is a pleasant 65-year-old male past medical history significant for coronary artery disease status post PCI to the mid RCA, proximal LAD and OM branch in 2019, ischemic cardiomyopathy that has since improved, hypertension, dyslipidemia and chronic nicotine dependence. He follows in the office with Dr. Canada. We have been asked to see in consultation for chest pain. He states he started developing a heavy sensation in the midsternal region yesterday evening. Initially he took one nitroglycerin and it did resolve his discomfort however the pain came back. When he came back the second time he decided to call EMS. He had checked his blood pressure at home and it was over 220 systolic. He had no associated shortness of breath, dizziness, palpitations, nausea, vomiting or diaphoresis. Upon arrival to the emergency department he was having ongoing chest discomfort. He states he did eat and Tamaz[employer] sausage and wasn't sure if it was causing his discomfort because he started noticing an acid taste in his mouth at that time. He is currently chest pain-free. DIAGNOSTICS EKG reveals sinus bradycardia heart rate of 59, T-wave inversions noted in the septal leads with evidence of early repolarization in the precordial leads. Telemetry tracings indicate sinus mechanism. Chest xray negative for an acute cardiopulmonary process. Laboratory reviewed, WBC 6.6, hemoglobin 16.6, platelets 139, d-dimer less than 0.17, sodium 136, potassium 4.8, creatinine 0.86, troponins negative 3, magnesium 2.0, proBNP 47, LDL is 96 and HDL is 29. Current cardiac medications include Aldactone 25 mg daily, aspirin 81 mg daily, Coreg 25 mg twice a day, losartan 100 daily and amlodipine 10 mg daily. Most recent stress test performed in December 2019 was a Lexiscan stress test that was negative for stress-induced ischemic changes. Most recent echocardiogram obtained in the office April 2019 revealed preserved LV systolic function with ejection fraction 60% with mild TR and mild MR. This was an improvement from November 2018 in the setting of the myocardial infarction where his EF dropped to 30%. REVIEW OF SYSTEMS At the time of my exam: CONSTITUTIONAL: Denies fever or chills. CARDIOVASCULAR: Denies chest pain, shortness of breath, orthopnea, PND or palpitations. RESPIRATORY: Denies cough. GASTROINTESTINAL: Denies abdominal pain, diarrhea, constipation, nausea or vomiting. MUSCULOSKELETAL: Denies myalgias. NEUROLOGIC: Denies numbness, tingling, headacbe or weakness. ENDOCRINE: Denies fatigue, weight change, polydipsia or polyurina. GENITOURINARY: Denies burning, hematuria or urgency with micturation. HEMATOLOGIC: Denies history of anemia or bleeding. PHYSICAL EXAMINATION Blood pressure 152/76 heart rate 59 afebrile and maintaining oxygen saturation on room air. CONSTITUTIONAL: No apparent distress. HEENT: Head is normocephalic. Pupils are equal, round. Sclerae anicteric. Mucous membranes of the mouth are moist. No JVD. No carotid bruit. CHEST EXAMINATION: Lungs are clear to auscultation. No chest wall tenderness is noted on palpation or with deep breathing. Diminished bilaterally. HEART EXAMINATION: Regular rate and rhythm. S1, S2 heard. No murmurs, gallops or rub. ABDOMEN: Soft, nontender. Positive bowel sounds. EXTREMITIES: 2+ peripheral pulses, no lower extremity edema and no calf tenderness. NEUROLOGIC EXAMINATION: Patient is awake, alert and oriented x3. ASSESSMENT Chest pain Coronary artery disease Hypertension Dyslipidemia History of ischecmic cardiomyopathy improved after PCI. Chronic nicotine dependence PLAN Decrease aspirin to 81 mg daily. Obtain 2D echocardiogram and doppler study to assess cardiac structure and function. Initiate atorvastatin 40 mg daily. Would like to repeat a Lexiscan stress test to assess for stress induced ischemic changes. This cannot be performed until Thursday. We will re-evaluate tomorrow depending echo findings. Thank you kindly for this consultation. Nurse Practitioner note has been reviewed, I agree with a documented findings and plan of care. Patient was seen and examined. Past Medical History Past Medical History: Hyperlipidemia, Hypertension Additional Past Medical History / Comment(s): BACK PAIN; FAMILY HX OF DM - PT STATES THAT HE PERIODICALLY CHECKS HIS CBG AND IT IS SOMETIMES "HIGH" Last Myocardial Infarction Date:: 2018 History of Any Multi-Drug Resistant Organisms: None Reported Past Surgical History: Adenoidectomy, Heart Catheterization With Stent, Orthopedic Surgery, Tonsillectomy Additional Past Surgical History / Comment(s): FINGER ON LEFT HAND SEWN ON - 1 980; 5 STENTS - [address] AYON ALL OF THEM IN - 1ST ONE IN 2001 AND LAST ONE IN 2010, 3 stents November 2018 Past Anesthesia/Blood Transfusion Reactions: No Reported Reaction Date of Last Stent Placement:: 2010 Past Psychological History: No Psychological Hx Reported Smoking Status: Current some day smoker Past Alcohol Use History: None Reported Additional Past Alcohol Use History / Comment(s): at times he smokes a pipe Past Drug Use History: None Reported - Past Family History Father Family Medical History: Hypertension Additional Family Medical History / Comment(s): VALVE Mother Family Medical History: Coronary Artery Disease (CAD), Diabetes Mellitus Additional Family Medical History / Comment(s): CABG Medications and Allergies Home Medications Medication Instructions Recorded Confirmed Type Nitroglycerin Sl Tabs [Nitrostat] 0.4 mg SUBLINGUAL Q5M PRN #25 tab 12/23/18 03/15/21 Rx Losartan Potassium 100 mg PO DAILY 12/24/18 03/15/21 History Aspirin EC [Ecotrin Low Dose] 81 mg PO DAILY 01/25/20 03/15/21 History Carvedilol [Coreg] 25 mg PO BID 01/25/20 03/15/21 History Spironolactone [Aldactone] 25 mg PO DAILY 01/25/20 03/15/21 History amLODIPine [Norvasc] 10 mg PO HS 01/25/20 03/15/21 History Meclizine HCl 25 mg PO DAILY PRN 09/06/20 03/15/21 History Allergies Allergy/AdvReac Type Severity Reaction Status Date / Time Sulfa (Sulfonamide AdvReac HIGH FEVER Verified 03/15/21 20:33 Antibiotics) Physical Exam Vitals: Vital Signs Temp Pulse Pulse Resp BP BP Pulse Ox 03/16/21 02:00 98.6 F 53 L 18 147/73 95 03/15/21 22:30 98.2 F 58 L 19 168/56 95 03/15/21 22:08 87 16 129/58 97 03/15/21 21:50 19 03/15/21 19:52 98.5 F 62 16 164/83 96 Intake and Output 03/15/21 03/16/21 03/16/21 22:59 06:59 14:59 Intake Total 94.061 Balance 94.061 Intake: Intake, IV Titration 94.061 Amount Heparin Sod,Pork in 0.45% 94.061 NaCl 25,000 unit In 0.45 % NaCl 1 250ml.bag @ 12 UNITS/KG/HR 9.798 mls/hr IV .Q24H [facility] Rx#: [id number] Other: # Voids 1 1 Weight 81.647 kg Results 03/15/21 20:07 03/15/21 20:07 Cardiac Enzymes 03/15/21 03/15/21 03/15/21 Range/Units 20:07 20:07 23:25 AST 23 (17-59) U/L Troponin I <0.012 <0.012 (0.000-0.034) ng/mL 03/16/21 Range/Units 02:26 AST (17-59) U/L Troponin I <0.012 (0.000-0.034) ng/mL Coagulation 03/15/21 03/16/21 Range/Units 20:07 05:06 PT 10.3 (9.0-12.0) sec APTT 24.6 39.4 H (22.0-30.0) sec Lipids 03/16/21 Range/Units 02:26 Triglycerides 157 H (<150) mg/dL Cholesterol 156 (<200) mg/dL HDL Cholesterol 29 L (40-60) mg/dL CBC 03/15/21 Range/Units 20:07 WBC 6.6 (3.8-10.6) k/uL RBC 5.21 (4.30-5.90) m/uL Hgb 16.6 (13.0-17.5) gm/dL Hct 45.9 (39.0-53.0) % Plt Count 139 L (150-450) k/uL Comprehensive Metabolic Panel 03/15/21 Range/Units 20:07 Sodium 136 L (137-145) mmol/L Potassium 4.8 (3.5-5.1) mmol/L Chloride 104 (98-107) mmol/L Carbon Dioxide 25 (22-30) mmol/L BUN 18 (9-20) mg/dL Creatinine 0.86 (0.66-1.25) mg/dL Glucose 182 H (74-99) mg/dL Calcium 9.2 (8.4-10.2) mg/dL AST 23 (17-59) U/L ALT 25 (4-49) U/L Alkaline Phosphatase 69 (38-126) U/L Total Protein 6.7 (6.3-8.2) g/dL Albumin 4.1 (3.5-5.0) g/dL Current Medications Generic Name Dose Route Start Last Admin Trade Name Freq PRN Reason Stop Dose Admin Amlodipine Besylate 10 mg 03/16/21 21:00 Amlodipine 10 Mg Tab PO HS [facility] Aspirin 325 mg 03/16/21 09:00 03/16/21 08:12 Aspirin 325 Mg Tab PO 325 mg DAILY [facility] Administration Carvedilol 25 mg 03/16/21 07:30 03/16/21 08:12 Carvedilol 12.5 Mg Tab PO 25 mg BID-W/MEALS [facility] Administration Heparin Sodium/Sodium Chloride 250 mls @ 9.798 mls/hr 03/15/21 21:00 03/16/21 08:13 25,000 unit/ Sodium Chloride IV 14 units/kg/hr .Q24H [facility] 11.431 mls/hr Titration Protocol 12 UNITS/KG/HR Losartan Potassium 100 mg 03/16/21 09:00 03/16/21 08:12 Losartan 50 Mg Tab PO 100 mg DAILY [facility] Administration Meclizine HCl 25 mg 03/15/21 21:04 Meclizine 25 Mg Tab PO DAILY PRN DIZZINESS Nitroglycerin 0.4 mg 03/15/21 21:00 Nitroglycerin Sl Tabs 0.4 Mg Tab SUBLINGUAL Q5M PRN Chest Pain Nitroglycerin 1 inch 03/16/21 00:00 03/16/21 05:25 Nitroglycerin Oint 1 Inch/Gm Packet TOPICAL Not Given Q6HR [facility] Spironolactone 25 mg 03/16/21 09:00 03/16/21 08:13 Spironolactone 25 Mg Tab PO 25 mg DAILY [facility] Administration Intake and Output 03/15/21 03/16/21 03/16/21 22:59 06:59 14:59 Intake Total 94.061 Balance 94.061 Intake: Intake, IV Titration 94.061 Amount Heparin Sod,Pork in 0.45% 94.061 NaCl 25,000 unit In 0.45 % NaCl 1 250ml.bag @ 12 UNITS/KG/HR 9.798 mls/hr IV .Q24H [facility] Rx#: [id number] Other: # Voids 1 1 Weight 81.647 kg 03/15/21 20:07 03/15/21 20:07
[2021-03-16] MEDS: ATORVASTATIN 40 MG TAB PO SCH ×2 (11:26→11:27)
[2021-03-16] MEDS ORDERED: hydroCHLOROthiazide 25 MG TAB PO SCH (11:45)
--- NOTE | 2021-03-16 14:00 | ECHOF ---
Referral Reason:cp MEASUREMENTS -------- HEIGHT: 170.2 cm WEIGHT: 81.6 kg BP: RVIDd: 3.1 cm (< 3.3) IVSd: 1.1 cm (0.6 - 1.1) LVIDd: 4.8 cm (3.9 - 5.3) LVPWd: 1.1 cm (0.6 - 1.1) IVSs: 1.7 cm LVIDs: 2.6 cm LVPWs: 1.7 cm LAESV Index (A-L): 16.23 ml/m Ao Diam: 3.0 cm (2.0 - 3.7) AV Cusp: 2.1 cm (1.5 - 2.6) MV EXCURSION: 19.783 mm (> 18.000) MV EF SLOPE: 85 mm/s (70 - 150) EPSS: 0.4 cm MV E Leighton: 0.49 m/s MV DecT: 185 ms MV A Leighton: 0.70 m/s MV E/A Ratio: 0.70 RAP: 5.00 mmHg RVSP: 14.20 mmHg FINDINGS -------- Sinus rhythm. This was a technically adequate study. LV size, wall thickness and systolic function are normal, with an EF greater than 55%. The left stuart tricular size is normal. The diastolic filling pattern is normal for the age of the patient 7.02. The right ventricle is normal in size. Normal LA size by volume 22+/-6 ml/m2. The right atrial size is normal. There is mild aortic valve sclerosis. There is no evidence of aortic regurgitation. Mild mitral annular calcification present. Mild mitral regurgitation is present. The tricuspid valve appears structurally normal. Mild tricuspid regurgitation present. Right vent ricular systolic pressure is normal at < 35 mmHg. The pulmonic valve was not well visualized. There is no pulmonic regurgitation present. The aortic root size is normal. Echo free space represents a pericardial fat pad. CONCLUSIONS -------- 1. LV size, wall thickness and systolic function are normal, with an EF greater than 55%. 2. Normal LA size by volume 22+/-6 ml/m2. 3. There is mild aortic valve sclerosis. 4. Mild mitral regurgitation is present. 5. Mild tricuspid regurgitation present. 6. Echo free space represents a pericardial fat pad. STRUCTURAL ARCHITECT: India Dailey RDCS
--- NOTE | 2021-03-16 19:47 | P.HPIM ---
History of Present Illness H&P Date: 03/16/21 Chief Complaint: Chest pain History of presenting complaint: This is a pleasant 65-year-old patient of Dr. Mcintyre. Follows with cardiology Dr. Dickens. Chronic stable medical conditions include coronary artery disease with stent last one being in 2010, hypertension, hyperlipidemia, chronic low back pain, smoker. Patient yesterday notice pain in the upper part of the chest. Lasted for about 2 hours. Noted deviation no dizziness or lightheadedness. Unrelated to activity. Also so she was a high blood pressure. No shortness of breath. Patient medically with unstable angina. Placed on IV heparin the ER. Review of systems: GEN.: None EYES: None HEENT: None NECK: None RESPIRATORY: None CARDIOVASCULAR: As above] GASTROINTESTINAL: None GENITOURINARY: None MUSCULOSKELETAL: None LYMPHATICS: None HEMATOLOGICAL: None PSYCHIATRY: None NEUROLOGICAL: None Past medical history to include: Coronary artery disease with stent last one being in 2010, hypertension, hyperl ipidemia, chronic low back pain Social history: Patient is on disability. . 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 Physical examination: VITAL SIGNS: 98.5, 16 to, 16, 164 x 83, 96% on room air GENERAL: BMI 28.2, sitting up, comfortable. EYES: Pupils equal. Conjunctiva normal. HEENT: External appearance of nose and ears normal, oral cavity grossly normal. NECK: JVD not raised; masses not palpable. HEART: First and second heart sounds are normal; no edema. LUNGS:[ Respiratory rate normal; decreased breath sounds. ABDOMEN: Soft, nontender, liver spleen not palpable, no masses palpable. PSYCH: Alert and oriented x3; mood and affect normal. NEUROLOGICAL: Cranial nerves grossly intact; no facial asymmetry, power and sensation grossly intact. LYMPHATICS: No lymph nodes palpable in the axilla and neck INVESTIGATIONS, reviewed in the clinical context: WBC 8.6-year-old woman 16.6 platelets 139 potassium 4.8 creatinine 0.86 Troponin I 3 all negative LDL 96 Coronavirus [PCR]-not detected EKG tracing personally reviewed by me-normal sinus rhythm, Chest x-ray film personally reviewed by me-normal 2-D echocardiogram EF greater than 55%. No wall motion abnormality Assessment and plan: -Unstable angina in a patient with known coronary artery disease. Troponins 3 are negative. EKG nonspecific. Cardiology consulted -Coronary artery disease with history of stent in 2010 On aspirin Lipitor Coreg -Essential hypertension Patient on Norvasc, losartan, Coreg -Hyperlipidemia On Lipitor Cardiology he ordered a stress test. Home medications resumed. Was on IV heparin presentation. Past Medical History Past Medical History: Hyperlipidemia, Hypertension Additional Past Medical History / Comment(s): BACK PAIN; FAMILY HX OF DM - PT STATES THAT HE PERIODICALLY CHECKS HIS CBG AND IT IS SOMETIMES "HIGH" Last Myocardial Infarction Date:: 2018 History of Any Multi-Drug Resistant Organisms: None Reported Past Surgical History: Adenoidectomy, Heart Catheterization With Stent, Orthopedic Surgery, Tonsillectomy Additional Past Surgical History / Comment(s): FINGER ON LEFT HAND SEWN ON - 1979; [address] - [address] AYON ALL OF THEM IN - 1ST ONE IN 2001 AND LAST ONE IN 2010, 3 stents November 2018 Past Anesthesia/Blood Transfusion Reactions: No Reported Reaction Date of Last Stent Placement:: 2010 Past Psychological History: No Psychological Hx Reported Smoking Status: Current some day smoker Past Alcohol Use History: None Reported Additional Past Alcohol Use History / Comment(s): at times he smokes a pipe Past Drug Use History: None Reported - Past Family History Father Family Medical History: Hypertension Additional Family Medical History / Comment(s): VALVE Mother Family Medical History: Coronary Artery Disease (CAD), Diabetes Mellitus Additional Family Medical History / Comment(s): CABG Medications and Allergies Home Medications Medication Instructions Recorded Confirmed Type Nitroglycerin Sl Tabs [Nitrostat] 0.4 mg SUBLINGUAL Q5M PRN #25 tab 12/23/18 03/15/21 Rx Losartan Potassium 100 mg PO DAILY 12/24/18 03/15/21 History Aspirin EC [Ecotrin Low Dose] 81 mg PO DAILY 01/25/20 03/15/21 History Carvedilol [Coreg] 25 mg PO BID 01/25/20 03/15/21 History Spironolactone [Aldactone] 25 mg PO DAILY 01/25/20 03/15/21 History amLODIPine [Norvasc] 10 mg PO HS 01/25/20 03/15/21 History Meclizine HCl 25 mg PO DAILY PRN 09/06/20 03/15/21 History Atorvastatin [Lipitor] 40 mg PO DAILY #30 tab 03/16/21 Rx hydroCHLOROthiazide [Hydrodiuril] 25 mg PO DAILY #90 tab 03/16/21 Rx Allergies Allergy/AdvReac Type Severity Reaction Status Date / Time Sulfa (Sulfonamide AdvReac HIGH FEVER Verified 03/15/21 20:33 Antibiotics) Physical Exam Vitals: Vital Signs Temp Pulse Pulse Resp BP BP Pulse Ox 03/16/21 06:58 98.4 F 59 L 16 152/76 95 03/16/21 02:00 98.6 F 53 L 18 147/73 95 03/15/21 22:30 98.2 F 58 L 19 168/56 95 03/15/21 22:08 87 16 129/58 97 03/15/21 21:50 19 03/15/21 19:52 98.5 F 62 16 164/83 96 Intake and Output 03/15/21 03/16/21 03/16/21 22:59 06:59 14:59 Intake Total 94.061 Balance 94.061 Intake: Intake, IV Titration 94.061 Amount Heparin Sod,Pork in 0.45% 94.061 NaCl 25,000 unit In 0.45 % NaCl 1 250ml.bag @ 12 UNITS/KG/HR 9.798 mls/hr IV .Q24H [facility] Rx#: [id number] Other: # Voids 1 1 Weight 81.647 kg Results CBC & Chem 7: 03/15/21 20:07 03/15/21 20:07 Labs: Abnormal Lab Results - Last 24 Hours (Table) 03/15/21 03/15/21 03/16/21 Range/Units 20:07 20:07 02:26 Plt Count 139 L (150-450) k/uL APTT (22.0-30.0) sec Sodium 136 L (137-145) mmol/L Glucose 182 H (74-99) mg/dL Triglycerides 157 H (<150) mg/dL HDL Cholesterol 29 L (40-60) mg/dL 03/16/21 Range/Units 05:06 Plt Count (150-450) k/uL APTT 39.4 H (22.0-30.0) sec Sodium (137-145) mmol/L Glucose (74-99) mg/dL Triglycerides (<150) mg/dL HDL Cholesterol (40-60) mg/dL Thrombosis Risk Factor Assmnt - Choose All That Apply Each Factor Represents 1 point: Obesity (BMI >25) Each Risk Factor Represents 2 Points: Age 61-74 years Other congenital or acquired thrombophilia - If yes, enter type in comment: No Thrombosis Risk Factor Assessment Total Risk Factor Score: 3 Thrombosis Risk Factor Assessment Level: Moderate Risk
--- NOTE | 2021-03-16 19:51 | P.DS ---
Providers Date of admission: 03/15/21 21:05 Expected date of discharge: 03/16/21 Attending physician: Spencer Alba Consults: 03/15/21 21:00 Consult Physician Urgent Consulting Provider: Altaf Lainez Consult Reason/Comments: Chest pain Do you want consulting provider notified?: Yes [facility] Course: Chief Complaint: Chest pain History of presenting complaint: This is a pleasant 65-year-old patient of Dr. Mcintyre. Follows with cardiology Dr. Dickens. Chronic stable medical conditions include coronary artery disease with stent last one being in 2010, hypertension, hyperlipidemia, chronic low back pain, smoker. Patient yesterday notice pain in the upper part of the chest. Lasted for about 2 hours. no dizziness or lightheadedness. Unrelated to activity. Noted to have high blood pressure. No shortness of breath. Patient medically with unstable angina. Placed on IV heparin the ER. Troponins were negative. 2-D echocardiogram did not show any wall motion abnormality. Patient was cleared by cardiology to go home: Home and to follow-up with Dr. Dickens Consultation: Dr. Ayala from cardiology Past medical history to include: Coronary artery disease with stent last one being in 2010, hypertension, hyperlipidemia, chronic low back pain Social history: Patient is on disability. . 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 Physical examination: VITAL SIGNS: 98.4, 59, 16, 152/76, 95% room air GENERAL: BMI 28.2, sitting up, comfortable. EYES: Pupils equal. Conjunctiva normal. HEENT: External appearance of nose and ears normal, oral cavity grossly normal. NECK: JVD not raised; masses not palpable. HEART: First and second heart sounds are normal; no edema. LUNGS:[ Respiratory rate normal; decreased breath sounds. ABDOMEN: Soft, nontender, liver spleen not palpable, no masses palpable. PSYCH: Alert and oriented x3; mood and affect normal. INVESTIGATIONS, reviewed in the clinical context: WBC 6.6-year-old woman 16.6 platelets 139 potassium 4.8 creatinine 0.86 Troponin I 3 all negative LDL 96 Coronavirus [PCR]-not detected EKG tracing personally reviewed by me-normal sinus rhythm, Chest x-ray film personally reviewed by me-normal 2-D echocardiogram EF greater than 55%. No wall motion abnormality Assessment and plan: -Unstable angina in a patient with known coronary artery disease. Troponins 3 are negative. EKG nonspecific. 2-D echo did not show any wall motion abnormality Patient to follow-up with Dr. Dickens as outpatient -Coronary artery disease with history of stent in 2010 On aspirin Lipitor Coreg -Essential hypertension Patient on Norvasc, losartan, Coreg -Hyperlipidemia On Lipitor Disposition: Home Patient Condition at Discharge: Fair Plan - Discharge Summary New Discharge Prescriptions: New hydroCHLOROthiazide [Hydrodiuril] 25 mg PO DAILY #90 tab Atorvastatin [Lipitor] 40 mg PO DAILY #30 tab Continue Nitroglycerin Sl Tabs [Nitrostat] 0.4 mg SUBLINGUAL Q5M PRN #25 tab PRN Reason: Chest Pain Losartan Potassium 100 mg PO DAILY amLODIPine [Norvasc] 10 mg PO HS Carvedilol [Coreg] 25 mg PO BID Aspirin EC [Ecotrin Low Dose] 81 mg PO DAILY Spironolactone [Aldactone] 25 mg PO DAILY Meclizine HCl 25 mg PO DAILY PRN PRN Reason: DIZZINESS Discharge Medication List Nitroglycerin Sl Tabs [Nitrostat] 0.4 mg SUBLINGUAL Q5M PRN #25 tab 12/23/18 [Rx] Losartan Potassium 100 mg PO DAILY 12/24/18 [History] Aspirin EC [Ecotrin Low Dose] 81 mg PO DAILY 01/25/20 [History] Carvedilol [Coreg] 25 mg PO BID 01/25/20 [History] Spironolactone [Aldactone] 25 mg PO DAILY 01/25/20 [History] amLODIPine [Norvasc] 10 mg PO HS 01/25/20 [History] Meclizine HCl 25 mg PO DAILY PRN 09/06/20 [History] Atorvastatin [Lipitor] 40 mg PO DAILY #30 tab 03/16/21 [Rx] hydroCHLOROthiazide [Hydrodiuril] 25 mg PO DAILY #90 tab 03/16/21 [Rx] Follow up Appointment(s)/Referral(s): Brandon Mcintyre MD [Primary Care Provider] - 1-2 days Lawrence Canada MD [STAFF PHYSICIAN] - 1 Week Patient Instructions/Handouts: Chest Pain (DC), Heart Healthy Diet (DC) Discharge Disposition: HOME SELF-CARE
[2021-03-16] MEDS ORDERED: amLODIPine 10 MG TAB PO SCH (21:00)
== END 2021-03-16 14:18 | disposition home or self-care (01) ==
LOC: EC 19:47 → 6NMEDSUR 21:05
PROVIDERS: ADMIT Hospitalist; ATTEND Hospitalist
DX: I25.110 Atherosclerotic heart disease of native coronary artery with unstable angina pectoris (principal); I10 Essential (primary) hypertension; E78.5 Hyperlipidemia, unspecified; I25.5 Ischemic cardiomyopathy; R00.1 Bradycardia, unspecified; I08.1 Rheumatic disorders of both mitral and tricuspid valves; G89.29 Other chronic pain; M54.5 Low back pain; F17.290 Nicotine dependence, other tobacco product, uncomplicated; E66.9 Obesity, unspecified; Z68.28 Body mass index [BMI] 28.0-28.9, adult; Z20.822 Contact with and (suspected) exposure to COVID-19; Z79.82 Long term (current) use of aspirin; Z79.899 Other long term (current) drug therapy; Z88.2 Allergy status to sulfonamides; Z95.5 Presence of coronary angioplasty implant and graft; I25.2 Old myocardial infarction; Z98.890 Other specified postprocedural states; Z82.49 Family history of ischemic heart disease and other diseases of the circulatory system; Z83.3 Family history of diabetes mellitus
CPT/HCPCS: 96376 ×2; 96365; 96366 ×2; 93005 ×2; 99291; 36415; 93306; 85379; 83880; 80061; 80053; 82550; 83735; 84484 ×2; 85025; 85610; 85730 ×2; 87635; 71046; G0378 ×2; J1644 ×3

== ENCOUNTER 2021-08-17 00:52 | Observation (INO) | payer MEDICARE ==
--- NOTE | 2021-08-17 01:13 | ED ---
Chest Pain HPI - General Stated Complaint: Chest Pain Time Seen by Provider: 08/17/21 00:57 Source: patient, family, EMS Mode of arrival: EMS Limitations: no limitations - Related Data Home Medications Medication Instructions Recorded Confirmed Losartan Potassium 100 mg PO DAILY 12/24/18 03/15/21 Aspirin EC [Ecotrin Low Dose] 81 mg PO DAILY 01/25/20 03/15/21 Carvedilol [Coreg] 25 mg PO BID 01/25/20 03/15/21 Spironolactone [Aldactone] 25 mg PO DAILY 01/25/20 03/15/21 amLODIPine [Norvasc] 10 mg PO HS 01/25/20 03/15/21 Meclizine HCl 25 mg PO DAILY PRN 09/06/20 03/15/21 Previous Rx's Medication Instructions Recorded Nitroglycerin Sl Tabs [Nitrostat] 0.4 mg SUBLINGUAL Q5M PRN #25 tab 12/23/18 Atorvastatin [Lipitor] 40 mg PO DAILY #30 tab 03/16/21 hydroCHLOROthiazide [Hydrodiuril] 25 mg PO DAILY #90 tab 03/16/21 Allergies Allergy/AdvReac Type Severity Reaction Status Date / Time Sulfa (Sulfonamide AdvReac HIGH FEVER Verified 08/17/21 01:13 Antibiotics) Review of Systems ROS Statement: Those systems with pertinent positive or pertinent negative responses have been documented in the HPI. ROS Other: All systems not noted in ROS Statement are negative. EKG Findings - EKG Comments: EKG Findings:: EKG is sinus bradycardia 56 MI 180 QRS 94 QTC 399 Past Medical History Past Medical History: Hyperlipidemia, Hypertension Additional Past Medical History / Comment(s): BACK PAIN; FAMILY HX OF DM - PT STATES THAT HE PERIODICALLY CHECKS HIS CBG AND IT IS SOMETIMES "HIGH" Last Myocardial Infarction Date:: 2018 History of Any Multi-Drug Resistant Organisms: None Reported Past Surgical History: Adenoidectomy, Heart Catheterization With Stent, Orthopedic Surgery, Tonsillectomy Additional Past Surgical History / Comment(s): FINGER ON LEFT HAND SEWN ON - 1979; 5 STENTS - DR AYON ALL OF THEM IN - 1ST ONE IN 2001 AND LAST ONE IN 2010, 3 stents November 2018 Past Anesthesia/Blood Transfusion Reactions: No Reported Reaction Date of Last Stent Placement:: 2010 Past Psychological History: No Psychological Hx Reported Smoking Status: Current some day smoker Past Alcohol Use History: None Reported Past Drug Use History: None Reported - Past Family History Father Family Medical History: Hypertension Additional Family Medical History / Comment(s): VALVE Mother Family Medical History: Coronary Artery Disease (CAD), Diabetes Mellitus Additional Family Medical History / Comment(s): CABG General Exam Limitations: no limitations Course Vital Signs 08/17/21 08/17/21 01:00 02:04 Temperature 98.1 F Pulse Rate 61 64 Respiratory 18 18 Rate Blood Pressure 132/83 139/91 O2 Sat by Pulse 93 L 95 Oximetry Disposition Clinical Impression: Unstable angina pectoris, Chest pain, Ischemic heart disease Disposition: ADMITTED IP TO THIS HOSP Condition: Fair Is patient prescribed a controlled substance at d/c from ED?: No Referrals: Brandon Mcintyre MD [Primary Care Provider] - 1-2 days
--- NOTE | 2021-08-17 01:42 | XR ---
EXAMINATION TYPE: XR chest 2V DATE OF EXAM: 08/17/2021 COMPARISON: NONE HISTORY: Chest pain TECHNIQUE: 2 views FINDINGS: Heart and mediastinum are normal. Lungs are clear. Diaphragm is normal. Bony thorax is inta ct. Pulmonary vascularity is normal. IMPRESSION: Normal chest. Normal heart.
[2021-08-17 01:47] LABS: Basophils # (A) 0.1 k/uL (0-0.2); Basophils % (A) 1 %; Eosinophils # (A) 0.2 k/uL (0-0.7); Eosinophils % (A) 2 %; HGB 15.9 gm/dL (13.0-17.5); Hyperchromasia Slight; Lymphocytes # (A) 1.5 k/uL (1.0-4.8); Lymphocytes % (A) 18 %; MCH 31.8 pg (25.0-35.0); MCHC 35.2 g/dL (31.0-37.0); MCV 90.2 fL (80.0-100.0); Mean Platelet Volume 8.5; Monocytes # (A) 0.4 k/uL (0-1.0); Monocytes % (A) 4 %; Neutrophils # (A) 6.1 k/uL (1.3-7.7); Neutrophils % (A) 73 %; Platelet Count 185 k/uL (150-450); RBC 4.99 m/uL (4.30-5.90); RDW 13.3 % (11.5-15.5); WBC 8.3 k/uL (3.8-10.6)
[2021-08-17 02:23] LABS: Partial Thromboplastin Time 23.5 sec (22.0-30.0); Prothrombin Time 10.4 sec (9.0-12.0)
[2021-08-17 02:26] LABS: Albumin 4.1 g/dL (3.5-5.0); Calcium 9.9 mg/dL (8.4-10.2); Potassium 4.5 mmol/L (3.5-5.1); Total Bilirubin 0.6 mg/dL (0.2-1.3); Total Protein 6.7 g/dL (6.3-8.2)
[2021-08-17] MEDS ORDERED: MORPHINE SULFATE 4 MG/ML SYRINGE IV PRN (02:34)
[2021-08-17] MEDS ORDERED: NITROGLYCERIN SL TABS 0.4 MG TAB SUBLINGUAL PRN (02:34)
[2021-08-17] MEDS ORDERED: HEPARIN SOD,PORK IN 0.45% NACL 25,000 UNIT in 0.45% NACL 1 250ML.BAG IV SCH (02:45)
[2021-08-17 07:19] VITALS: RESP 16
[2021-08-17] MEDS: SODIUM CHLORIDE 0.9% 1,000 ML IV SCH ×2 (07:26→11:15)
[2021-08-17] MEDS ORDERED: ASPIRIN 81 MG PO SCH (10:15)
[2021-08-17] MEDS: carvediloL 12.5 MG TAB PO SCH ×2 (10:57→17:22)
[2021-08-17] MEDS ORDERED: SPIRONOLACTONE 25 MG TAB PO SCH (11:00)
[2021-08-17] MEDS ORDERED: LOSARTAN 50 MG TAB PO SCH (11:00)
[2021-08-17] MEDS ORDERED: hydroCHLOROthiazide 25 MG TAB PO SCH (11:00)
[2021-08-17] MEDS ORDERED: NICOTINE 14MG/24HR PATCH TRANSDERM SCH (15:45)
--- NOTE | 2021-08-17 15:46 | P.HPIM ---
History of Present Illness H&P Date: 08/17/21 Chief Complaint: Chest pain History of presenting complaint: This is a pleasant 66-year-old patient of Dr. Mcintyre. Follows with cardiology Dr. Dickens. Chronic stable medical conditions include coronary artery disease with stent last one about 2 years ago, hypertension, hyperlipidemia, chronic low back pain, smoker. Yesterday evening while watching television developed left precordial chest pain. Sharp stabbing. It is also presently often for about 10 minutes and came back in the evening for about 10 minutes. No dizziness no lightheadedness no shortness of breath no perspiration no radiation. Patient has chronic sinus trouble with chronic intermittent cough. Patient does smoke a pipe. Patient thinks even had a stress test within the last 1 year. Otherwise fair physical activity. Review of systems: GEN.: None EYES: None HEENT: None NECK: None RESPIRATORY: As above CARDIOVASCULAR: As above] GASTROINTESTINAL: None GENITOURINARY: None MUSCULOSKELETAL: Chronic low back pain LYMPHATICS: None HEMATOLOGICAL: None PSYCHIATRY: None NEUROLOGICAL: None Past medical history to include: Coronary artery disease with stent last one about 2008, hypertension, hyp erlipidemia, chronic low back pain Social history: Patient is on disability. . 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 Conjunctiva normal. HEENT: External appearance of nose and ears normal, oral cavity grossly normal. NECK: JVD not raised; masses not palpable. HEART: First and second heart sounds are normal; no edema. LUNGS:[ Respiratory rate normal; decreased breath sounds. ABDOMEN: Soft, nontender, liver spleen not palpable, no masses palpable. PSYCH: Alert and oriented x3; mood and affect normal. NEUROLOGICAL: Cranial nerves grossly intact; no facial asymmetry, power and sensation grossly intact. LYMPHATICS: No lymph nodes palpable in the axilla and neck INVESTIGATIONS, reviewed in the clinical context: White count 8.3 hemoglobin 15.9 platelets 185 potassium 4.5 creatinine 1.02 Troponin I 3 negative Coronavirus [PCR]: Not detected EKG tracing personally reviewed by me-normal sinus rhythm Chest x-ray personally reviewed by P: No infiltrates Assessment and plan: -Left precordial chest pain sharp in nature. Noncardiac sounding. Possible pleurisy. -Rule out cardiac cause of presentation -Coronary artery disease with multiple stents, last one being about 2 years ago On aspirin Lipitor Coreg -Essential hypertension Norvasc 10 mg daily, Coreg 25 mg twice a day, Cozaar 100 mg daily -Hyperlipidemia Patient started IV heparin the ER. It can be discontinued when okay with cardiology. Serial cardiac enzymes are negative. Care was discussed with the patient. Nicotine patch. Smoke cessation counseling: This was done with the patient. Nicotine patch is being given. More than 3 minutes was spent for this Past Medical History Past Medical History: Chest Pain / Angina, Hyperlipidemia, Hypertension Additional Past Medical History / Comment(s): BACK PAIN; FAMILY HX OF DM - PT STATES THAT HE PERIODICALLY CHECKS HIS CBG AND IT IS SOMETIMES "HIGH" Last Myocardial Infarction Date:: 2018 History of Any Multi-Drug Resistant Organisms: None Reported Past Surgical History: Adenoidectomy, Heart Catheterization With Stent, Orthopedic Surgery, Tonsillectomy Additional Past Surgical History / Comment(s): FINGER ON LEFT HAND SEWN ON - 1979; [address] AYON ALL OF THEM IN - 1ST ONE IN 2001 AND LAST ONE IN 2018, 3 stents November 2018 Past Anesthesia/Blood Transfusion Reactions: No Reported Reaction Date of Last Stent Placement:: 2010 Past Psychological History: No Psychological Hx Reported Smoking Status: Current some day smoker Past Alcohol Use History: None Reported Additional Past Alcohol Use History / Comment(s): at times he smokes a pipe Past Drug Use History: None Reported - Past Family History Father Family Medical History: Hypertension Additional Family Medical History / Comment(s): VALVE Mother Family Medical History: Coronary Artery Disease (CAD), Diabetes Mellitus Additional Family Medical History / Comment(s): CABG Medications and Allergies Home Medications Medication Instructions Recorded Confirmed Type Nitroglycerin Sl Tabs [Nitrostat] 0.4 mg SUBLINGUAL Q5M PRN #25 tab 12/23/18 08/17/21 Rx Losartan Potassium 100 mg PO DAILY 12/24/18 08/17/21 History Aspirin EC [Ecotrin Low Dose] 81 mg PO DAILY 01/25/20 08/17/21 History Carvedilol [Coreg] 25 mg PO BID 01/25/20 08/17/21 History Spironolactone [Aldactone] 25 mg PO DAILY 01/25/20 08/17/21 History amLODIPine [Norvasc] 10 mg PO HS 01/25/20 08/17/21 History Meclizine HCl 25 mg PO DAILY PRN 09/06/20 08/17/21 History hydroCHLOROthiazide [Hydrodiuril] 25 mg PO DAILY #90 tab 03/16/21 08/17/21 Rx Cholecalciferol [Vitamin D3 (25 25 mcg PO DAILY 08/17/21 08/17/21 History Mcg = 1000 Iu)] Allergies Allergy/AdvReac Type Severity Reaction Status Date / Time Sulfa (Sulfonamide AdvReac HIGH FEVER Verified 08/17/21 08:29 Antibiotics) Physical Exam Vitals: Vital Signs Temp Pulse Pulse Resp BP BP Pulse Ox 08/17/21 07:17 98.1 F 63 16 141/82 93 L 08/17/21 05:35 51 L 18 135/74 95 08/17/21 03:00 64 18 123/76 97 08/17/21 02:04 64 18 139/91 95 08/17/21 01:00 98.1 F 61 18 132/83 93 L Intake and Output 08/16/21 08/17/21 08/17/21 22:59 06:59 14:59 Other: Weight 81.647 kg Results CBC & Chem 7: 08/17/21 01:15 08/17/21 01:15 Labs: Abnormal Lab Results - Last 24 Hours (Table) 08/17/21 Range/Units 01:15 Sodium 135 L (137-145) mmol/L BUN 28 H (9-20) mg/dL Glucose 161 H (74-99) mg/dL Thrombosis Risk Factor Assmnt - Choose All That Apply Each Risk Factor Represents 2 Points: Age 61-74 years Thrombosis Risk Factor Assessment Total Risk Factor Score: 2 Thrombosis Risk Factor Assessment Level: Low Risk
[2021-08-17 19:38] VITALS: BP 139/83; PULSE 70; TEMP 98
[2021-08-17] MEDS ORDERED: amLODIPine 10 MG TAB PO SCH (21:00)
--- NOTE | 2021-08-17 22:29 | P.CRDCN ---
History of Present Illness History of present illness: HISTORY OF PRESENTING ILLNESS Patient is a pleasant 66-year-old male with history of coronary artery disease status post PCI of RCA, LAD and OM in 2019, ischemic cardiomyopathy, hypertension, hyperlipidemia and tobacco abuse who normally follows with Dr. Canada. Patient initially had presented in 2019 with a substernal chest pressure. He has been having atypical more left fifth through eighth rib pain which is not associated with any shortness breath, diaphoresis. He checked his blood pressure was noted to be elevated and therefore was more concerned and came to emergency department. He is not followed in the office in a few months secondary to COVID-19 per patient. He admits the pain he felt yesterday felt nothing like his prior MIs. Workup shows white blood cell count 8.3, hemoglobin 15.9, platelets 185, sodium 135, BUN 28, creatinine 1.0, troponin less than 0.0123, proBNP 73. EKG shows normal sinus rhythm, Q wave in V2, no significant ST or T-wave abnormalities. Has been chest pain free since coming to floor. REVIEW OF SYSTEMS At the time of my exam: CONSTITUTIONAL: Denies fever or chills. CARDIOVASCULAR: +chest pain, shortness of breath, orthopnea, PND or pal pitations. RESPIRATORY: Denies cough. GASTROINTESTINAL: Denies abdominal pain, diarrhea, constipation, nausea or vomiting. MUSCULOSKELETAL: Denies myalgias. NEUROLOGIC: Denies numbness, tingling or weakness. ENDOCRINE: Denies fatigue, weight change, polydipsia or polyurina. GENITOURINARY: Denies burning, hematuria or urgency with micturation. HEMATOLOGIC: Denies history of anemia or bleeding. PHYSICAL EXAMINATION Vital signs reviewed. CONSTITUTIONAL: No apparent distress. HEENT: Head is normocephalic. Pupils are equal, round. Sclerae anicteric. Mucous membranes of the mouth are moist. No JVD. No carotid bruit. CHEST EXAMINATION: Lungs are clear to auscultation. No chest wall tenderness is noted on palpation or with deep breathing. HEART EXAMINATION: Regular rate and rhythm. S1, S2 heard. No murmurs, gallops or rub. ABDOMEN: Soft, nontender. Positive bowel sounds. EXTREMITIES: 2+ peripheral pulses, no lower extremity edema and no calf tenderness. NEUROLOGIC EXAMINATION: Patient is awake, alert and oriented x3. ASSESSMENT 1. Atypical chest pain, do not suspect cardiac in origin 2. Coronary artery disease status post PCI RCA, LAD, OM 2018 3. History of ischemic cardiomyopathy with improved EF 4. Hypertension 5. Hyperlipidemia 6. Tobacco abuse PLAN Patient's chest pain is atypical and does not appear similar to his prior angina which was more substernal during his prior MIs. He admits his chest pain has improved and he was mainly concerned as his blood pressure was also elevated. Troponins normal and does not appear cardiac in nature. Patient stable for discharge home from a cardiac standpoint with possible outpatient stress testing. Past Medical History Past Medical History: Chest Pain / Angina, Hyperlipidemia, Hypertension Additional Past Medical History / Comment(s): BACK PAIN; FAMILY HX OF DM - PT STATES THAT HE PERIODICALLY CHECKS HIS CBG AND IT IS SOMETIMES "HIGH" Last Myocardial Infarction Date:: 2018 History of Any Multi-Drug Resistant Organisms: None Reported Past Surgical History: Adenoidectomy, Heart Catheterization With Stent, Orthopedic Surgery, Tonsillectomy Additional Past Surgical History / Comment(s): FINGER ON LEFT HAND SEWN ON - 1979; [address] AYON ALL OF THEM IN - 1ST ONE IN 2001 AND LAST ONE IN 2018, 3 stents November 2018 Past Anesthesia/Blood Transfusion Reactions: No Reported Reaction Date of Last Stent Placement:: 2010 Past Psychological History: No Psychological Hx Reported Smoking Status: Current some day smoker Past Alcohol Use History: None Reported Additional Past Alcohol Use History / Comment(s): at times he smokes a pipe Past Drug Use History: None Reported - Past Family History Father Family Medical History: Hypertension Additional Family Medical History / Comment(s): VALVE Mother Family Medical History: Coronary Artery Disease (CAD), Diabetes Mellitus Additional Family Medical History / Comment(s): CABG Medications and Allergies Home Medications Medication Instructions Recorded Confirmed Type Nitroglycerin Sl Tabs [Nitrostat] 0.4 mg SUBLINGUAL Q5M PRN #25 tab 12/23/18 08/17/21 Rx Losartan Potassium 100 mg PO DAILY 12/24/18 08/17/21 History Aspirin EC [Ecotrin Low Dose] 81 mg PO DAILY 01/25/20 08/17/21 History Carvedilol [Coreg] 25 mg PO BID 01/25/20 08/17/21 History Spironolactone [Aldactone] 25 mg PO DAILY 01/25/20 08/17/21 History amLODIPine [Norvasc] 10 mg PO HS 01/25/20 08/17/21 History Meclizine HCl 25 mg PO DAILY PRN 09/06/20 08/17/21 History hydroCHLOROthiazide [Hydrodiuril] 25 mg PO DAILY #90 tab 03/16/21 08/17/21 Rx Atorvastatin [Lipitor] 40 mg PO DAILY 08/17/21 08/17/21 History Cholecalciferol [Vitamin D3 (25 25 mcg PO DAILY 08/17/21 08/17/21 History Mcg = 1000 Iu)] Allergies Allergy/AdvReac Type Severity Reaction Status Date / Time Sulfa (Sulfonamide AdvReac HIGH FEVER Verified 08/17/21 08:29 Antibiotics) Physical Exam Vitals: Vital Signs Temp Pulse Pulse Resp BP BP Pulse Ox 08/17/21 18:42 98.0 F 70 16 139/83 95 08/17/21 13:55 98.5 F 61 16 118/72 96 08/17/21 07:17 98.1 F 63 16 141/82 93 L 08/17/21 05:35 51 L 18 135/74 95 08/17/21 03:00 64 18 123/76 97 08/17/21 02:04 64 18 139/91 95 08/17/21 01:00 98.1 F 61 18 132/83 93 L Intake and Output 08/17/21 08/17/21 08/17/21 06:59 14:59 22:59 Other: # Voids 1 Weight 81.647 kg Results 08/17/21 01:15 08/17/21 01:15 Cardiac Enzymes 08/17/21 08/17/21 08/17/21 Range/Units 01:15 01:15 07:11 AST 23 (17-59) U/L Troponin I <0.012 <0.012 (0.000-0.034) ng/mL 08/17/21 Range/Units 15:27 AST (17-59) U/L Troponin I <0.012 (0.000-0.034) ng/mL Coagulation 08/17/21 08/17/21 Range/Units 01:15 15:27 PT 10.4 (9.0-12.0) sec APTT 23.5 30.3 H (22.0-30.0) sec CBC 08/17/21 Range/Units 01:15 WBC 8.3 (3.8-10.6) k/uL RBC 4.99 (4.30-5.90) m/uL Hgb 15.9 (13.0-17.5) gm/dL Hct 45.0 (39.0-53.0) % Plt Count 185 (150-450) k/uL Comprehensive Metabolic Panel 08/17/21 Range/Units 01:15 Sodium 135 L (137-145) mmol/L Potassium 4.5 (3.5-5.1) mmol/L Chloride 104 (98-107) mmol/L Carbon Dioxide 24 (22-30) mmol/L BUN 28 H (9-20) mg/dL Creatinine 1.02 (0.66-1.25) mg/dL Glucose 161 H (74-99) mg/dL Calcium 9.9 (8.4-10.2) mg/dL AST 23 (17-59) U/L ALT 31 (4-49) U/L Alkaline Phosphatase 75 (38-126) U/L Total Protein 6.7 (6.3-8.2) g/dL Albumin 4.1 (3.5-5.0) g/dL Intake and Output 08/17/21 08/17/21 08/17/21 06:59 14:59 22:59 Other: # Voids 1 Weight 81.647 kg 08/17/21 01:15 08/17/21 01:15
[2021-08-18] MEDS ORDERED: ASPIRIN 325 MG TAB PO SCH (09:00)
--- NOTE | 2021-08-18 12:07 | P.DS ---
Providers Date of admission: 08/17/21 02:35 Expected date of discharge: 08/17/21 Attending physician: Spencer Alba Consults: 08/17/21 02:34 Consult Physician Routine Consulting Provider: Margo Ayala Consult Reason/Comments: cp Do you want consulting provider notified?: Yes [facility] Course: Chief Complaint: Chest pain History of presenting complaint: This is a pleasant 66-year-old patient of Dr. Mcintyre. Follows with cardiology Dr. Dickens. Chronic stable medical conditions include coronary artery disease with stent last one about 2 years ago, hypertension, hyperlipidemia, chronic low back pain, smoker. Yesterday evening while watching television developed left precordial chest pain. Sharp stabbing. It is also presently often for about 10 minutes and came back in the evening for about 10 minutes. No dizziness no lightheadedness no shortness of breath no perspiration no radiation. Patient has chronic sinus trouble with chronic intermittent cough. Patient does smoke a pipe. Patient thinks even had a stress test within the last 1 year. Otherwise fair physical activity. Patient chest pain was felt to be possibly vital pleurisy. Mild. No obvious cardiac component. Troponin is negative. Unremarkable EKG. Patient was seen by cardiology Dr. Lainez. Cleared for discharge. 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 Consultation: Dr. Lainez from cardiology Past medical history to include: Coronary artery disease with stent last one about 2008, hypertension, hype rlipidemia, chronic low back pain Social history: Patient is on disability. . 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 Conjunctiva normal. NECK: JVD not raised; masses not palpable. HEART: First and second heart sounds are normal; no edema. LUNGS:[ Respiratory rate normal; decreased breath sounds. ABDOMEN: Soft, nontender, liver spleen not palpable, no masses palpable. PSYCH: Alert and oriented x3; mood and affect normal. INVESTIGATIONS, reviewed in the clinical context: White count 8.3 hemoglobin 15.9 platelets 185 potassium 4.5 creatinine 1.02 Troponin I 3 negative Coronavirus [PCR]: Not detected EKG tracing personally reviewed by me-normal sinus rhythm Chest x-ray personally reviewed by P: No infiltrates Assessment and plan: -Left precordial chest pain sharp in nature. Noncardiac sounding. Possible viral pleurisy. -Coronary artery disease with multiple stents, last one being about 2 years ago On aspirin Lipitor Coreg -Essential hypertension Norvasc 10 mg daily, Coreg 25 mg twice a day, Cozaar 100 mg daily -Hyperlipidemia -Chronic nicotine dependence, pipe smoker Counseled -IV heparin monitoring Disposition: Home Patient Condition at Discharge: Fair Plan - Discharge Summary New Discharge Prescriptions: Continue Nitroglycerin Sl Tabs [Nitrostat] 0.4 mg SUBLINGUAL Q5M PRN #25 tab PRN Reason: Chest Pain Losartan Potassium 100 mg PO DAILY amLODIPine [Norvasc] 10 mg PO HS Carvedilol [Coreg] 25 mg PO BID Aspirin EC [Ecotrin Low Dose] 81 mg PO DAILY Spironolactone [Aldactone] 25 mg PO DAILY Meclizine HCl 25 mg PO DAILY PRN PRN Reason: DIZZINESS hydroCHLOROthiazide [Hydrodiuril] 25 mg PO DAILY #90 tab Atorvastatin [Lipitor] 40 mg PO DAILY Cholecalciferol [Vitamin D3 (25 Mcg = 1000 Iu)] 25 mcg PO DAILY Discharge Medication List Nitroglycerin Sl Tabs [Nitrostat] 0.4 mg SUBLINGUAL Q5M PRN #25 tab 12/23/18 [Rx] Losartan Potassium 100 mg PO DAILY 12/24/18 [History] Aspirin EC [Ecotrin Low Dose] 81 mg PO DAILY 01/25/20 [History] Carvedilol [Coreg] 25 mg PO BID 01/25/20 [History] Spironolactone [Aldactone] 25 mg PO DAILY 01/25/20 [History] amLODIPine [Norvasc] 10 mg PO HS 01/25/20 [History] Meclizine HCl 25 mg PO DAILY PRN 09/06/20 [History] hydroCHLOROthiazide [Hydrodiuril] 25 mg PO DAILY #90 tab 03/16/21 [Rx] Atorvastatin [Lipitor] 40 mg PO DAILY 08/17/21 [History] Cholecalciferol [Vitamin D3 (25 Mcg = 1000 Iu)] 25 mcg PO DAILY 08/17/21 [History] Follow up Appointment(s)/Referral(s): Brandon Mcintyre MD [Primary Care Provider] - 1-2 days Lawrence Canada MD [STAFF PHYSICIAN] - 1 Week Patient Instructions/Handouts: Chest Pain (DC) Discharge Disposition: HOME SELF-CARE
== END 2021-08-17 19:49 | disposition home or self-care (01) ==
LOC: EC 00:52 → 6NMEDSUR 02:35
PROVIDERS: ADMIT Hospitalist; ATTEND Hospitalist
DX: R07.2 Precordial pain (principal); I25.10 Atherosclerotic heart disease of native coronary artery without angina pectoris; I25.5 Ischemic cardiomyopathy; I10 Essential (primary) hypertension; E78.5 Hyperlipidemia, unspecified; R00.1 Bradycardia, unspecified; G89.29 Other chronic pain; M54.5 Low back pain; F17.290 Nicotine dependence, other tobacco product, uncomplicated; Z20.822 Contact with and (suspected) exposure to COVID-19; Z79.82 Long term (current) use of aspirin; Z79.899 Other long term (current) drug therapy; Z88.2 Allergy status to sulfonamides; Z95.5 Presence of coronary angioplasty implant and graft; Z98.890 Other specified postprocedural states; Z83.3 Family history of diabetes mellitus; Z82.49 Family history of ischemic heart disease and other diseases of the circulatory system
CPT/HCPCS: 99285; 36415; 93005; 83880; 80053; 83690; 83735; 84484; 85025; 85610; 85730; 87635; 71046; G0378; J1644

== ENCOUNTER 2022-01-29 20:14 | Inpatient (IN) | payer MEDICARE ==
[2022-01-29 20:55] LABS: Basophils # (A) 0.1 k/uL (0-0.2); Basophils % (A) 1 %; Eosinophils # (A) 0.2 k/uL (0-0.7); Eosinophils % (A) 2 %; HCT 45.4 % (39.0-53.0); HGB 15.9 gm/dL (13.0-17.5); Lymphocytes # (A) 1.4 k/uL (1.0-4.8); Lymphocytes % (A) 16 %; MCH 31.9 pg (25.0-35.0); MCV 91.2 fL (80.0-100.0); Mean Platelet Volume 8.1; Monocytes # (A) 0.5 k/uL (0-1.0); Monocytes % (A) 5 %; Neutrophils # (A) 6.7 k/uL (1.3-7.7); Neutrophils % (A) 75 %; Platelet Count 149 k/uL (150-450); RBC 4.98 m/uL (4.30-5.90); RDW 12.4 % (11.5-15.5); WBC 8.9 k/uL (3.8-10.6)
[2022-01-29 21:08] LABS: Partial Thromboplastin Time 24.6 sec (22.0-30.0); Prothrombin Time 10.7 sec (9.0-12.0)
[2022-01-29 21:11] LABS: Albumin 4.4 g/dL (3.5-5.0); Calcium 9.7 mg/dL (8.4-10.2); Magnesium 1.8 mg/dL (1.6-2.3); Potassium 4.2 mmol/L (3.5-5.1); Total Bilirubin 0.7 mg/dL (0.2-1.3); Total Protein 7.1 g/dL (6.3-8.2)
--- NOTE | 2022-01-29 21:53 | XR ---
EXAMINATION TYPE: XR chest 2V DATE OF EXAM: 01/29/2022 COMPARISON: 08/17/2021 HISTORY: Chest pain TECHNIQUE: 2 views FINDINGS: Heart is normal. Lungs are clear of infiltrate. There is no heart failure. There are no hil ar masses. IMPRESSION: No active cardiopulmonary disease. No change.
[2022-01-29] MEDS ORDERED: NALOXONE 0.4 MG/ML 1 ML VIAL IV PRN (22:27)
--- NOTE | 2022-01-29 22:27 | ED ---
Chest Pain HPI - General Chief Complaint: Chest Pain Stated Complaint: Chest Pain Time Seen by Provider: 01/29/22 20:19 Source: patient, EMS Mode of arrival: EMS Limitations: no limitations - History of Present Illness Initial Comments: 46-year-old male with past medical history of coronary artery disease with reported 8 stents presents to the emergency department with chest pain. States the symptoms started around 6:30 PM. He took one nitro and 3 baby aspirins. Pain did not go away and therefore he took a second nitro around 7 PM. When the pressure did not subside he called EMS. He describes it as a mid epigastric substernal pressure which does not feel consistent with his previous heart attacks. States he does have a history of a hiatal hernia and is concerned this could possibly be the etiology. Reports that the nitro did help his symptoms and arrives to our hospital completely pain free. He denies fevers, chills or cough. No ripping or tearing sensation to his back. No history of DVT or PE. No lower extremity edema. Patient recently treated for Covid. No other alleviating, precipitating modifying factors - Related Data Home Medications Medication Instructions Recorded Confirmed Losartan Potassium 100 mg PO DAILY@1500 12/24/18 01/29/22 Aspirin EC [Ecotrin Low Dose] 81 mg PO DAILY 01/25/20 01/29/22 Carvedilol [Coreg] 25 mg PO BID 01/25/20 01/29/22 amLODIPine [Norvasc] 10 mg PO HS 01/25/20 01/29/22 Meclizine HCl 25 mg PO TID PRN 09/06/20 01/29/22 Previous Rx's Medication Instructions Recorded Nitroglycerin Sl Tabs [Nitrostat] 0.4 mg SUBLINGUAL Q5M PRN #25 tab 12/23/18 Clopidogrel [Plavix] 75 mg PO DAILY 30 Days #30 tab 01/31/22 Atorvastatin Calcium [Lipitor] 10 mg PO HS #30 tab 02/01/22 Allergies Allergy/AdvReac Type Severity Reaction Status Date / Time Sulfa (Sulfonamide AdvReac HIGH FEVER Verified 01/29/22 22:18 Antibiotics) Review of Systems ROS Statement: Those systems with pertinent positive or pertinent negative responses have been documented in the HPI. ROS Other: All systems not noted in ROS Statement are negative. EKG Findings - EKG Comments: EKG Findings:: EKG demonstrates a sinus rhythm with a rate of 71. PA interval 175. QRS 104. QTC 381. No acute ST segment elevations or depressions concerning for ischemic changes Past Medical History Past Medical History: Hyperlipidemia, Hypertension Additional Past Medical History / Comment(s): BACK PAIN; FAMILY HX OF DM - PT STATES THAT HE PERIODICALLY CHECKS HIS CBG AND IT IS SOMETIMES "HIGH" Last Myocardial Infarction Date:: 2018 History of Any Multi-Drug Resistant Organisms: None Reported Past Surgical History: Adenoidectomy, Heart Catheterization With Stent, Orthopedic Surgery, Tonsillectomy Additional Past Surgical History / Comment(s): FINGER ON LEFT HAND SEWN ON - 1979; 5 STENTS - DR AYON ALL OF THEM IN - 1ST ONE IN 2001 AND LAST ONE IN 2010, 3 stents November 2018 Past Anesthesia/Blood Transfusion Reactions: No Reported Reaction Date of Last Stent Placement:: 2010 Past Psychological History: No Psychological Hx Reported Smoking Status: Current some day smoker Past Alcohol Use History: None Reported Past Drug Use History: None Reported - Past Family History Father Family Medical History: Hypertension Additional Family Medical History / Comment(s): VALVE Mother Family Medical History: Coronary Artery Disease (CAD), Diabetes Mellitus Additional Family Medical History / Comment(s): CABG General Exam Limitations: no limitations General appearance: alert, in no apparent distress Head exam: Present: atraumatic, normocephalic, normal inspection Eye exam: Present: normal appearance, PERRL, EOMI. Absent: scleral icterus, conjunctival injection, periorbital swelling ENT exam: Present: normal exam, mucous membranes moist Neck exam: Present: normal inspection. Absent: tenderness, meningismus, lymphadenopathy Respiratory exam: Present: normal lung sounds bilaterally. Absent: respiratory distress, wheezes, rales, rhonchi, stridor Cardiovascular Exam: Present: regular rate, normal rhythm, normal heart sounds. Absent: systolic murmur, diastolic murmur, rubs, gallop, clicks GI/Abdominal exam: Present: soft, normal bowel sounds. Absent: distended, tenderness, guarding, rebound, rigid Extremities exam: Present: normal inspection, full ROM, normal capillary refill. Absent: tenderness, pedal edema, joint swelling, calf tenderness Back exam: Present: normal inspection Neurological exam: Present: alert, oriented X3, CN II-XII intact Psychiatric exam: Present: normal affect, normal mood Skin exam: Present: warm, dry, intact, normal color. Absent: rash Course Vital Signs 01/29/22 20:38 Temperature 98.7 F Pulse Rate 87 Respiratory 16 Rate Blood Pressure 172/93 O2 Sat by Pulse 96 Oximetry Chest Pain MDM - MDM On arrival patient is placed into room 1. A thorough history and physical exam was performed. IV access established and laboratory studies were conducted. Patient went for chest x-ray. He remains pain-free throughout his stay. Laboratory studies revealed a negative first troponin. Chest x-ray demonstrates no acute process. Results are discussed with the patient. Due to his significant cardiac history with last cath approximately 3 years ago I did recommend admission for cardiac monitoring, trending his troponins and constituting cardiology. Patient agreed to this. Spoke with Dr. Rosenbaum who agreed to admit the patient. He is currently awaiting bed on the floor in stable condition Disposition Clinical Impression: Chest pain, ACS (acute coronary syndrome), Ischemic heart disease Disposition: ADMITTED IP TO THIS HOSP Is patient prescribed a controlled substance at d/c from ED?: No Decision to Admit Reason: Admit from EC Decision Date: 01/29/22 Decision Time: 22:27
[2022-01-29] MEDS ORDERED: MECLIZINE 25 MG TAB PO PRN (22:29)
[2022-01-29] MEDS ORDERED: NITROGLYCERIN SL TABS 0.4 MG TAB SUBLINGUAL PRN (22:29)
[2022-01-29] MEDS: amLODIPine 10 MG TAB PO SCH (23:21)
[2022-01-29] MEDS: carvediloL 12.5 MG TAB PO SCH (23:21)
--- NOTE | 2022-01-29 23:58 | P.HPIM ---
History of Present Illness H&P Date: 01/29/22 Patient is a 66-year-old male with a PMH of tobacco abuse, coronary artery disease status post 8 stents, hypertension, and hyperlipidemia who presents to the emergency room with complaints of chest discomfort. The patient reports that he suddenly developed substernal pressure-like discomfort, at around 6:30 PM tonight, rated at 6 out of 10, constant, alleviated by sublingual nitroglycerin only partially. He denied associated shortness of breath but did endorse mild nausea without vomiting. Denied dizziness, palpitations, diaphoresis. Denied fever, chills, cough. Reports that his pain resolved shortly after arrival to the emergency room and has not recurred since then. Denied any additional complaints at the time of interview. EKG in the emergency room revealed sinus rhythm at 71 bpm with T-wave inversion in lead V1 and T-wave flattening in lead V2 but otherwise unremarkable. Chest x-ray was unremarkable. Laboratory evaluation revealed a troponin of less than 0.012 with proBNP 96 and glucose 186. Review of systems: Pertinent positives and negatives as discussed in HPI, a complete review of systems was performed and all other systems are negative. Physical examination: General: non toxic, no distress, appears at stated age, overweight Derm: no unusual rashes/lesions no unusual ecchymoses, warm, dry Head: atraumatic, normocephalic, symmetric Eyes: EOMI, no lid lag, anicteric sclera, pupils equal round reactive to light ENT: Nose and ears atraumatic, no thrush, no pharyngeal erythema Neck: No thyromegaly, no cervical lymphadenopathy, trachea midline, supple Mouth: no lip lesion, mucus membranes moist Cardiovascular: S1S2 reg, no murmur, positive posterior tibial pulse bilateral, no edema, capillary refill less than 2 seconds Lungs: CTA bilateral, no rhonchi, no rales , no accessory muscle use Abdominal: soft, nontender to palpation, no guarding, no appreciable organomegaly, normal bowel sounds Ext: no gross muscle atrophy, muscle strength 5 out of 5 in all 4 extremities grossly, no contractures, Neuro: CN II-XI grossly intact, light touch intact all 4 extremities, finger to nose within normal limits, Psych: Alert, oriented, appropriate affect Assessment/plan Chest pain, r/o ACS -Cardiology consult -Trend troponin -Cardiac monitoring Chronic conditions: Hypertension, hyperlipidemia -Continue with home meds DVT prophylaxis -Heparin subq The patient is admitted with an anticipated less than 2 midnight stay for evaluation of chest pain CODE STATUS: Full Code Discussed with: Patient Anticipated discharge date: in am Anticipated discharge place: Home Past Medical History Past Medical History: Hyperlipidemia, Hypertension Additional Past Medical History / Comment(s): BACK PAIN; FAMILY HX OF DM - PT STATES THAT HE PERIODICALLY CHECKS HIS CBG AND IT IS SOMETIMES "HIGH" Last Myocardial Infarction Date:: 2018 History of Any Multi-Drug Resistant Organisms: None Reported Past Surgical History: Adenoidectomy, Heart Catheterization With Stent, Orthopedic Surgery, Tonsillectomy Additional Past Surgical History / Comment(s): FINGER ON LEFT HAND SEWN ON - 1979; 5 STENTS - [address] AYON ALL OF THEM IN - 1ST ONE IN 2001 AND LAST ONE IN 2010, 3 stents November 2018 Past Anesthesia/Blood Transfusion Reactions: No Reported Reaction Date of Last Stent Placement:: 2018 Past Psychological History: No Psychological Hx Reported Smoking Status: Current some day smoker Past Alcohol Use History: None Reported Additional Past Alcohol Use History / Comment(s): at times he smokes a pipe Past Drug Use History: None Reported - Past Family History Father Family Medical History: Hypertension Additional Family Medical History / Comment(s): VALVE Mother Family Medical History: Coronary Artery Disease (CAD), Diabetes Mellitus Additional Family Medical History / Comment(s): CABG Medications and Allergies Home Medications Medication Instructions Recorded Confirmed Type Nitroglycerin Sl Tabs [Nitrostat] 0.4 mg SUBLINGUAL Q5M PRN #25 tab 12/23/18 01/29/22 Rx Losartan Potassium 100 mg PO DAILY@1500 12/24/18 01/29/22 History Aspirin EC [Ecotrin Low Dose] 81 mg PO DAILY 01/25/20 01/29/22 History Carvedilol [Coreg] 25 mg PO BID 01/25/20 01/29/22 History Spironolactone [Aldactone] 25 mg PO DAILY 01/25/20 01/29/22 History amLODIPine [Norvasc] 10 mg PO HS 01/25/20 01/29/22 History Meclizine HCl 25 mg PO TID PRN 09/06/20 01/29/22 History hydroCHLOROthiazide [Hydrodiuril] 25 mg PO DAILY #90 tab 03/16/21 01/29/22 Rx Allergies Allergy/AdvReac Type Severity Reaction Status Date / Time Sulfa (Sulfonamide AdvReac HIGH FEVER Verified 01/29/22 22:18 Antibiotics) Physical Exam Vitals: Vital Signs Temp Pulse Pulse Resp BP BP Pulse Ox 01/29/22 23:25 97.7 F 62 145/72 96 01/29/22 20:38 98.7 F 87 16 172/93 96 Intake and Output 01/29/22 01/29/22 01/30/22 14:59 22:59 06:59 Other: Weight 81.647 kg Results CBC & Chem 7: 01/29/22 20:48 01/29/22 20:48 Labs: Abnormal Lab Results - Last 24 Hours (Table) 01/29/22 01/29/22 Range/Units 20:48 20:48 Plt Count 149 L (150-450) k/uL Sodium 134 L (137-145) mmol/L BUN 33 H (9-20) mg/dL Glucose 186 H (74-99) mg/dL Thrombosis Risk Factor Assmnt - Choose All That Apply Each Factor Represents 1 point: Obesity (BMI >25) Each Risk Factor Represents 2 Points: Age 61-74 years Thrombosis Risk Factor Assessment Total Risk Factor Score: 3 Thrombosis Risk Factor Assessment Level: Moderate Risk
[2022-01-30] MEDS: HEPARIN SODIUM,PORCINE/PF 5,000 UNIT/0.5 ML SYRINGE SQ SCH ×5 (00:36→21:04)
[2022-01-30 02:54] LABS: Basophils % (A) 0 %; Eosinophils # (A) 0.1 k/uL (0-0.7); Eosinophils % (A) 1 %; HCT 41.5 % (39.0-53.0); HGB 14.8 gm/dL (13.0-17.5); Lymphocytes # (A) 2.1 k/uL (1.0-4.8); Lymphocytes % (A) 33 %; MCHC 35.8 g/dL (31.0-37.0); MCV 92.1 fL (80.0-100.0); Mean Platelet Volume 8.9; Monocytes # (A) 0.3 k/uL (0-1.0); Monocytes % (A) 5 %; Neutrophils # (A) 3.7 k/uL (1.3-7.7); Neutrophils % (A) 57 %; Platelet Count 163 k/uL (150-450); RDW 13.2 % (11.5-15.5); WBC 6.4 k/uL (3.8-10.6)
[2022-01-30 03:17] LABS: Calcium 9.1 mg/dL (8.4-10.2); Potassium 4.1 mmol/L (3.5-5.1)
[2022-01-30] MEDS ORDERED: CAFFEINE CITRATE 60 MG/3 ML VIAL IV PRN (09:00)
[2022-01-30] MEDS ORDERED: AMINOPHYLLINE 500 MG/20 ML VIAL IV PRN (09:00)
[2022-01-30] MEDS ORDERED: REGADENOSON 0.4 MG/5 ML SYRINGE IV PRN (09:00)
--- NOTE | 2022-01-30 09:57 | P.CRDCN ---
History of Present Illness History of present illness: Patient is a pleasant 66-year-old male with history of coronary artery disease status post PCI of RCA, LAD and OM in 2019, ischemic cardiomyopathy with improved EF, hypertension, hyperlipidemia and tobacco abuse. He follows with Dr. Canada. We have been asked to see in consultation for chest pain. Patient states he has had 3 episodes of chest tightness over the past week. His chest tightness is located in the center of his chest/midsternal. It is non-radiating, non- exertional. He states he checks his blood pressure and every time his BP is elevated to 190s/90s-100s. He feels lightheaded and feels his chest "pounding". He is not doing any physical activity, just sitting down. He took 2 nitroglycerins with some relief. He states his chest tightness usually resolves when he notices his blood pressure decrease. He denies any associated shortness of breath, nausea, diaphoresis, dizziness, syncope or near syncope. He denies any symptoms of orthopnea or PND. He does smoke pipe at times. He states this is completely different from his previous HI in 2019, at that time he had exertiona l SOB, chest pain radiating down his left arm. DIAGNOSTICS: EKG sinus rhythm, T-wave inversion in lead V2 and aVL. No acute ST or T-wave abnormalities suggesting acute ischemia. Prior EKG with similar findings. Labs CBC unremarkable, troponin negative 3, proBNP 96, sodium 133, potassium 4.1, BUN 31, serum creatinine 1.11, magnesium 1.8 Chest Xray no acute cardiopulmonary process Most recent echocardiogram February 2021 revealed an EF greater than 55%, mild MR, mild TR Lexiscan stress test in 12/2019 revealed no evidence of reversible ischemia. REVIEW OF SYSTEMS At the time of my exam: CONSTITUTIONAL: Denies fever or chills. CARDIOVASCULAR: +chest pain, shortness of breath, orthopnea, PND or palpitations. RESPIRATORY: Denies cough. GASTROINTESTINAL: Denies abdominal pain, diarrhea, constipation, nausea or vomiting. MUSCULOSKELETAL: Denies myalgias. NEUROLOGIC: Denies numbness, tingling or weakness. ENDOCRINE: Denies fatigue, weight change, polydipsia or polyurina. GENITOURINARY: Denies burning, hematuria or urgency with micturation. HEMATOLOGIC: Denies history of anemia or bleeding. PHYSICAL EXAMINATION Vital signs reviewed. CONSTITUTIONAL: No apparent distress. HEENT: Head is normocephalic. Pupils are equal, round. Sclerae anicteric. Mucous membranes of the mouth are moist. No JVD. No carotid bruit. CHEST EXAMINATION: Lungs are clear to auscultation. No chest wall tenderness is noted on palpation or with deep breathing. HEART EXAMINATION: Regular rate and rhythm. S1, S2 heard. No murmurs, gallops or rub. ABDOMEN: Soft, nontender. Positive bowel sounds. EXTREMITIES: 2+ peripheral pulses, no lower extremity edema and no calf tenderness. NEUROLOGIC EXAMINATION: Patient is awake, alert and oriented x3. ASSESSMENT Atypical chest pain, acute coronary syndrome has ruled out Coronary artery disease status post PCI RCA, LAD, OM in 2019 History of ischemic cardiomyopathy with improved EF Hypertension Hyperlipidemia Tobacco abuse PLAN An acute coronary event has been ruled out with no EKG evidence of ischemia and negative cardiac enzymes. Patient's blood pressure has improved with current medication regimen Obtain 2D echocardiogram and doppler study to assess cardiac structure and function. Perform Lexiscan stress test to assess for stress induced cardiac ischemia. If abnormal will consider coronary angiography. The stress test and echocardiogram with no acute findings, okay to discharge from cardiology perspective. Patient can follow up with Dr. Canada Smoking cessation discussed and highly recommended. Thank you kindly for this consultation. Nurse practitioner note has been reviewed by physician. Signing provider agrees with the documented findings, assessment, and plan of care. Past Medical History Past Medical History: Hyperlipidemia, Hypertension Additional Past Medical History / Comment(s): BACK PAIN; FAMILY HX OF DM - PT STATES THAT HE PERIODICALLY CHECKS HIS CBG AND IT IS SOMETIMES "HIGH" Last Myocardial Infarction Date:: 2018 History of Any Multi-Drug Resistant Organisms: None Reported Past Surgical History: Adenoidectomy, Heart Catheterization With Stent, Orthopedic Surgery, Tonsillectomy Additional Past Surgical History / Comment(s): FINGER ON LEFT HAND SEWN ON - 1979; 5 STENTS - [address] AYON ALL OF THEM IN - 1ST ONE IN 2001 AND LAST ONE IN 2010, 3 stents November 2018 Past Anesthesia/Blood Transfusion Reactions: No Reported Reaction Date of Last Stent Placement:: 2018 Past Psychological History: No Psychological Hx Reported Smoking Status: Current some day smoker Past Alcohol Use History: None Reported Additional Past Alcohol Use History / Comment(s): at times he smokes a pipe Past Drug Use History: None Reported - Past Family History Father Family Medical History: Hypertension Additional Family Medical History / Comment(s): VALVE Mother Family Medical History: Coronary Artery Disease (CAD), Diabetes Mellitus Additional Family Medical History / Comment(s): CABG Medications and Allergies Home Medications Medication Instructions Recorded Confirmed Type Nitroglycerin Sl Tabs [Nitrostat] 0.4 mg SUBLINGUAL Q5M PRN #25 tab 12/23/18 01/29/22 Rx Losartan Potassium 100 mg PO DAILY@1500 12/24/18 01/29/22 History Aspirin EC [Ecotrin Low Dose] 81 mg PO DAILY 01/25/20 01/29/22 History Carvedilol [Coreg] 25 mg PO BID 01/25/20 01/29/22 History Spironolactone [Aldactone] 25 mg PO DAILY 01/25/20 01/29/22 History amLODIPine [Norvasc] 10 mg PO HS 01/25/20 01/29/22 History Meclizine HCl 25 mg PO TID PRN 09/06/20 01/29/22 History hydroCHLOROthiazide [Hydrodiuril] 25 mg PO DAILY #90 tab 03/16/21 01/29/22 Rx Allergies Allergy/AdvReac Type Severity Reaction Status Date / Time Sulfa (Sulfonamide AdvReac HIGH FEVER Verified 01/29/22 22:18 Antibiotics) Physical Exam Vitals: Vital Signs Temp Pulse Pulse Resp BP BP Pulse Ox 01/30/22 02:29 97.7 F 60 17 101/57 93 L 01/29/22 23:25 97.7 F 62 145/72 96 01/29/22 20:38 98.7 F 87 16 172/93 96 Intake and Output 01/29/22 01/30/22 01/30/22 22:59 06:59 14:59 Other: # Voids 2 Weight 81.647 kg Results 01/30/22 02:20 01/30/22 02:20 Cardiac Enzymes 01/29/22 01/29/22 01/30/22 Range/Units 20:48 20:48 00:20 AST 22 (17-59) U/L Troponin I <0.012 <0.012 (0.000-0.034) ng/mL 01/30/22 Range/Units 02:20 AST (17-59) U/L Troponin I <0.012 (0.000-0.034) ng/mL Coagulation 01/29/22 Range/Units 20:48 PT 10.7 (9.0-12.0) sec APTT 24.6 (22.0-30.0) sec CBC 01/29/22 01/30/22 Range/Units 20:48 02:20 WBC 8.9 6.4 (3.8-10.6) k/uL RBC 4.98 4.50 (4.30-5.90) m/uL Hgb 15.9 14.8 (13.0-17.5) gm/dL Hct 45.4 41.5 (39.0-53.0) % Plt Count 149 L 163 (150-450) k/uL Comprehensive Metabolic Panel 01/29/22 01/30/22 Range/Units 20:48 02:20 Sodium 134 L 133 L (137-145) mmol/L Potassium 4.2 4.1 (3.5-5.1) mmol/L Chloride 102 102 (98-107) mmol/L Carbon Dioxide 22 23 (22-30) mmol/L BUN 33 H 31 H (9-20) mg/dL Creatinine 1.19 1.11 (0.66-1.25) mg/dL Glucose 186 H 169 H (74-99) mg/dL Calcium 9.7 9.1 (8.4-10.2) mg/dL AST 22 (17-59) U/L ALT 32 (4-49) U/L Alkaline Phosphatase 63 (38-126) U/L Total Protein 7.1 (6.3-8.2) g/dL Albumin 4.4 (3.5-5.0) g/dL Current Medications Generic Name Dose Route Start Last Admin Trade Name Freq PRN Reason Stop Dose Admin Amlodipine Besylate 10 mg 01/29/22 22:30 01/29/22 23:21 Amlodipine 10 Mg Tab PO 10 mg HS EARL Administration Aspirin 81 mg 01/30/22 09:00 Aspirin 81 Mg PO DAILY [facility] Carvedilol 25 mg 01/29/22 22:30 01/29/22 23:21 Carvedilol 12.5 Mg Tab PO 25 mg BID EARL Administration Heparin Sodium (Porcine) 5,000 unit 01/30/22 00:00 01/30/22 00:36 Heparin Sodium,Porcine/Pf 5,000 Unit/0.5 Ml Syringe SQ 5,000 unit Q8HR EARL Administration Hydrochlorothiazide 25 mg 01/30/22 09:00 Hydrochlorothiazide 25 Mg Tab PO DAILY [facility] Losartan Potassium 100 mg 01/30/22 15:00 Losartan 50 Mg Tab PO DAILY@1500 EARL Meclizine HCl 25 mg 01/29/22 22:29 Meclizine 25 Mg Tab PO TID PRN DIZZINESS Naloxone HCl 0.2 mg 01/29/22 22:27 Naloxone 0.4 Mg/Ml 1 Ml Vial IV Q2M PRN Opioid Reversal Nitroglycerin 0.4 mg 01/29/22 22:29 Nitroglycerin Sl Tabs 0.4 Mg Tab SUBLINGUAL Q5M PRN Chest Pain Spironolactone 25 mg 01/30/22 09:00 Spironolactone 25 Mg Tab PO DAILY [facility] Intake and Output 01/29/22 01/30/22 01/30/22 22:59 06:59 14:59 Other: # Voids 2 Weight 81.647 kg 01/30/22 02:20 01/30/22 02:20
--- NOTE | 2022-01-30 11:00 | ECHOF ---
Referral Reason:chest pain MEASUREMENTS -------- HEIGHT: 170.2 cm WEIGHT: 81.6 kg BP: 147/83 RVIDd: 2.9 cm (< 3.3) IVSd: 1.2 cm (0.6 - 1.1) LVIDd: 4.5 cm (3.9 - 5.3) LVPWd: 1.3 cm (0.6 - 1.1) IVSs: 1.5 cm LVIDs: 2.8 cm LVPWs: 2.0 cm LA Diam: 3.0 cm (2.7 - 3.8) LAESV Index (A-L): 20.22 ml/m Ao Diam: 3.3 cm (2.0 - 3.7) AV Cusp: 2.2 cm (1.5 - 2.6) MV EXCURSION: 14.577 mm (> 18.000) MV EF SLOPE: 62 mm/s (70 - 150) EPSS: 0.5 cm MV E Leighton: 0.83 m/s MV DecT: 274 ms MV A Leighton: 0.92 m/s MV E/A Ratio: 0.91 FINDINGS -------- Sinus rhythm. This was a technically adequate study. The left ventricular size is normal. There is mild concentric left ventricular hypertrophy. Overa ll left ventricular systolic function is normal with, an EF between 60 - 65 %. The right ventricle is normal in size. Normal LA size by volume 22+/-6 ml/m2. The right atrium is normal in size. Interatrial and interventricular septum intact. The aortic valve is trileaflet, and appears structurally normal. No aortic stenosis or regurgitation. The mitral valve is normal. The tricuspid valve appears structurally normal. Unable to estimate RVSP due to inadequate TR jet s pectral doppler profile. The pulmonic valve is normal. The aortic root size is normal. Normal inferior vena cava with normal inspiratory collapse consistent with estimated right atrial pre ssure of 5 mmHg. There is no pericardial effusion. CONCLUSIONS -------- 1. The left ventricular size is normal. 2. There is mild concentric left ventricular hypertrophy. 3. Overall left ventricular systolic function is normal with, an EF between 60 - 65 %. 4. The aortic valve is trileaflet, and appears structurally normal. No aortic stenosis or regurgitati on. 5. There is no pericardial effusion. DRY [employer]IMER POWDER BLENDER: Richa Selby RDCS
--- NOTE | 2022-01-30 11:15 | P.STRESS ---
- Stress Test Note Stress Test Results/Findings: Exam Performed: NM stress lexiscan cardiolite Exam Date: 01/30/22 Reason for Exam: CHEST DISCOMFORT Height: 5 ft 7 in Weight: 81.65 kg Protocol: LEXISCAN CARDIOLITE Stage: NA Duration of Exercise: NA Resting Heart Rate: 64 Resting Blood Pressure: 133/77 Maximum Achieved Heart Rate: 85 Maximum Achieved Blood Pressure: 150/83 85% PMHR: 134 100% PMHR: 158 METS: NA Technologist Comment: Stress Test Results/Findings: This is a 66-year-old gentleman with history of hypertension smoking history and previous DC being evaluated for symptoms of chest pain. No Stress data: Baseline EKG showed sinus rhythm with normal IA interval and QRS duration. Blood pressure at rest is 133/77 with pulse rate of 64. A standard dose of Lexiscan was infused. EKGs taken during and after infusion did not reveal any significant changes from the baseline. Final impression: #1. Negative Lexiscan stress test #2. Report on the nuclear images to be provided by the radiologist.
[2022-01-30] MEDS: SPIRONOLACTONE 25 MG TAB PO SCH (11:52)
[2022-01-30] MEDS: ASPIRIN 81 MG PO SCH (11:52)
[2022-01-30] MEDS: carvediloL 12.5 MG TAB PO SCH ×2 (11:52→21:01)
[2022-01-30] MEDS: hydroCHLOROthiazide 25 MG TAB PO SCH (11:52)
--- NOTE | 2022-01-30 12:19 | NM ---
EXAMINATION TYPE: NM stress lexiscan cardiolite DATE OF EXAM: 01/30/2022 COMPARISON: NONE HISTORY: Chest discomfort TECHNIQUE: After the intravenous administration of 10.2 mCi Tc 99m Sestamibi - Cardiolite resting SP ECT images acquired 45 minutes post injection. At peak stress 25.3 mCi Tc 99m Sestamibi - Stress images obtained 35 minutes post injection The patient was stressed with 0.4mg Lexiscan. FINDINGS: There is diminished signal along the inferior wall near the cardiac base on the stress images. This a geoffrey has a more normal appearance on the resting images. No additional this matched defects are eviden t. No matched defects are evident. Polar maps appear to underestimate the inferior wall defect. Ejection fraction is normal at 73%. IMPRESSION: 1. Suggestion of mild stress-induced ischemic change along the inferior wall near the cardiac base on SPECT imaging.
[2022-01-30] MEDS ORDERED: ALPRAZolam 0.5 MG TAB PO PRN (13:18)
[2022-01-30] MEDS ORDERED: ATORVASTATIN 80 MG TAB PO STA (13:18)
[2022-01-30] MEDS ORDERED: ALPRAZolam 0.25 MG TAB PO PRN (13:18)
--- NOTE | 2022-01-30 13:57 | P.PN ---
<Tulio Cota - Last Filed: 01/30/22 13:38> Subjective Progress Note Date: 01/30/22 Hospital course: Patient is a 66-year-old male with a past medical history of CAD with a previous stents, hypertension, hyperlipidemia, and chronic nicotine use. Patient presented to the hospital on 01/29/22 with a chief complaint of chest pain described as a squeezing sensation to midsternal chest initially accompanied by diaphoresis but denied any other associated symptoms including lightheadedness, dizziness, nausea, palpitations, shortness of breath, or experiencing any numbness/tingling/weakness in his extremities. Patient denied any radiation of this pain. He was seen and fully evaluated in the emergency department. An EKG was completed revealing normal sinus rhythm at 71 bpm with no noted T-wave or ST abnormalities. Troponin negative at less than 0.0123 draws. CBC unremarkable. BMP revealed mild hyponatremia with sodium of 134 and slight prerenal azotemia with BUN of 33, creatinine 1.19, and GFR of 64. Chest x-ray was negative for acute cardiopulmonary process. Patient was admitted to our services with consultation to cardiology. Physical exam: Patient seen and fully evaluated at bedside this morning. He reports complete resolution of chest pain since arrival to facility. Patient does state his chest pain is typically correlated with high blood pressure. He reports on his blood pressure elevates he has noticed in the past chest tightness, patient states pressure was 200/100 prior to arrival and upon arrival patient was in hypertensive urgency with blood pressure 172/93. Currently blood pressure is much more controlled with morning pressure 147/83 prior to receiving daily medications. Morning labs reviewed and stable. Troponins trended overnight negative at less than 0.0123 draws. Vital signs reviewed and stable. General: Nontoxic, no distress and appears stated age. Derm: Skin warm and dry, normal coloration for ethnicity. Head: Atraumatic, normocephalic and symmetric. Eyes: EOMs intact, no lid lag, and anicteric sclera Mouth: no lip lesions, mucus membranes moist Cardiovascular: regular rate and rhythm with normal S1S2, no murmur, positive posterior tibial pulses bilaterally, and cap refill < 2 seconds. Lungs: Respirations even, regular, and unlabored on room air. Lungs CTA bilaterally, no rhonchi, no rales, no wheezing, and no accessory muscle usage. Abdominal: soft, nontender to palpation, no guarding, no appreciable organomegaly Ext: ROM intact. No gross muscle atrophy, no edema, no contractures Neuro: Speech clear, face symmetrical and CN II-XII grossly intact with no noted focal neuro deficits Psych: Alert and oriented to person, place, time, and situation. Appropriate and pleasant affect. Assessment and Plan of Care: Chest pain, rule out acute coronary syndrome -Cardiology following, taking patient for Cris scan stress test today. -Telemetry monitoring -Troponins negative -EKG normal sinus rhythm at 71 bpm with no noted T-wave or ST abnormalities. -Cardiac diet -Lasix -Aspirin, atorvastatin, amlodipine, hydrochlorothiazide, losartan, Aldactone, and carvedilol -As needed sublingual nitro -Lipid profile and Hgb A1c with a.m. labs. Hypertension Monitor vital signs and continue daily medication regimen with amlodipine, hydrochlorothiazide, losartan, and carvedilol. Hyperlipidemia Continue daily medication regimen with atorvastatin. CODE STATUS: Full code DVT prophylaxis: Heparin Discussed with: Patient and RN Anticipated discharge date: 1-[address]: Home A total of 35 minutes was spent on the care of this complex patient more than 50% of the time was spent in counseling and care coordination. Objective - Vital Signs Vital signs: Vital Signs Temp 97.8 F 01/30/22 07:54 Pulse 59 L 01/30/22 08:32 Resp 16 01/30/22 08:32 BP 147/83 01/30/22 07:54 Pulse Ox 99 01/30/22 07:54 Intake & Output 01/29/22 01/30/22 01/30/22 18:59 06:59 18:59 Weight 81.647 kg Other: Voiding Method Toilet # Voids 2 - Labs CBC & Chem 7: 01/30/22 02:20 01/30/22 02:20 Labs: Abnormal Lab Results - Last 24 Hours (Table) 01/29/22 01/29/22 01/30/22 Range/Units 20:48 20:48 02:20 Plt Count 149 L (150-450) k/uL Sodium 134 L 133 L (137-145) mmol/L BUN 33 H 31 H (9-20) mg/dL Glucose 186 H 169 H (74-99) mg/dL <Ashutosh Black - Last Filed: 01/30/22 17:19> Subjective I reviewed the documentation as provided by the JOHAN above, who is the original author of this note. I agree with the documented assessment and plan, with the following changes: None Objective - Vital Signs Vital signs: Vital Signs Temp 98.1 F 01/30/22 13:35 Pulse 61 01/30/22 13:35 Resp 16 01/30/22 13:35 BP 124/61 01/30/22 13:35 Pulse Ox 92 L 01/30/22 13:35 Intake & Output 01/29/22 01/30/22 01/30/22 18:59 06:59 18:59 Weight 81.647 kg 81.65 kg Other: Voiding Method Toilet # Voids 2 1 - Labs CBC & Chem 7: 01/30/22 02:20 01/30/22 02:20 Labs: Abnormal Lab Results - Last 24 Hours (Table) 01/29/22 01/29/22 01/30/22 Range/Units 20:48 20:48 02:20 Plt Count 149 L (150-450) k/uL Sodium 134 L 133 L (137-145) mmol/L BUN 33 H 31 H (9-20) mg/dL Glucose 186 H 169 H (74-99) mg/dL
[2022-01-30] MEDS: LOSARTAN 50 MG TAB PO SCH (17:09)
[2022-01-30] MEDS: amLODIPine 10 MG TAB PO SCH (21:01)
[2022-01-31] MEDS ORDERED: SODIUM CHLORIDE 0.9% 1,000 ML in EMPTY BAG 1 BAG IV ONE
[2022-01-31] MEDS ORDERED: HEPARIN SODIUM,PORCINE 2,500 UNIT in SODIUM CHLORIDE 0.9% 250 ML IRRIGATION PRN (07:00)
[2022-01-31] MEDS ORDERED: HEPARIN SODIUM,PORCINE 10,000 UNIT in SODIUM CHLORIDE 0.9% 1,000 ML IRRIGATION PRN (07:00)
[2022-01-31 07:17] LABS: Basophils # (A) 0.1 k/uL (0-0.2); Basophils % (A) 1 %; Eosinophils # (A) 0.1 k/uL (0-0.7); Eosinophils % (A) 2 %; HCT 42.8 % (39.0-53.0); HGB 14.8 gm/dL (13.0-17.5); Lymphocytes # (A) 1.8 k/uL (1.0-4.8); Lymphocytes % (A) 31 %; MCH 32.1 pg (25.0-35.0); MCHC 34.7 g/dL (31.0-37.0); MCV 92.7 fL (80.0-100.0); Mean Platelet Volume 8.5; Monocytes # (A) 0.3 k/uL (0-1.0); Monocytes % (A) 6 %; Neutrophils # (A) 3.5 k/uL (1.3-7.7); Neutrophils % (A) 59 %; Platelet Count 146 k/uL (150-450); RBC 4.61 m/uL (4.30-5.90); RDW 12.6 % (11.5-15.5); WBC 5.9 k/uL (3.8-10.6)
[2022-01-31] MEDS ORDERED: ASPIRIN 325 MG TAB PO STA (07:36)
[2022-01-31] MEDS: ASPIRIN 81 MG PO SCH (07:39)
[2022-01-31 07:40] LABS: ALT 26 U/L (4-49); AST 18 U/L (17-59); African American GFR (CKD) 65 (>60 ml/min/1.73 sqM); Albumin 3.5 g/dL (3.5-5.0); Albumin/Globulin Ratio 1.3; Alkaline Phosphatase 53 U/L (38-126); Anion Gap 6 mmol/L; Blood Urea Nitrogen 39 mg/dL (9-20); Calcium 8.7 mg/dL (8.4-10.2); Carbon Dioxide 24 mmol/L (22-30); Chloride 105 mmol/L (98-107); Globulin 2.6 g/dL; Glucose 153 mg/dL (74-99); Non-African American GFR(CKD) 56 (>60 ml/min/1.73 sqM); Potassium 4.3 mmol/L (3.5-5.1); Sodium 135 mmol/L (137-145); Total Bilirubin 0.8 mg/dL (0.2-1.3); Total Protein 6.1 g/dL (6.3-8.2)
[2022-01-31] MEDS: carvediloL 12.5 MG TAB PO SCH ×2 (07:42→20:45)
[2022-01-31] MEDS: SPIRONOLACTONE 25 MG TAB PO SCH (07:42)
[2022-01-31] MEDS: ATORVASTATIN 40 MG TAB PO SCH (07:42)
[2022-01-31] MEDS: hydroCHLOROthiazide 25 MG TAB PO SCH (07:43)
[2022-01-31] MEDS: HEPARIN SODIUM,PORCINE/PF 5,000 UNIT/0.5 ML SYRINGE SQ SCH (07:44)
[2022-01-31 08:14] LABS: Magnesium 1.9 mg/dL (1.6-2.3)
[2022-01-31 11:06] LABS: Chol/HDL Ratio 6.23 Ratio; LDL Cholesterol,Calculated 106.2 mg/dL (0.0-131.0)
[2022-01-31] MEDS ORDERED: IV FLUID CONTINUATION 1,000 ML IV ONE (12:45)
[2022-01-31] MEDS ORDERED: LIDOCAINE 1% INJ 10MG/ML (20 ML MDV) ONE (12:51)
[2022-01-31] MEDS ORDERED: VERAPAMIL 2.5 MG/ML 2 ML AMP ONE (12:51)
[2022-01-31] MEDS ORDERED: HEPARIN SODIUM 1,000 UN/ML (10ML VL) ONE (12:51)
[2022-01-31] MEDS ORDERED: MIDAZOLAM 2 MG/2 ML VIAL IV ONE (12:56)
[2022-01-31] MEDS ORDERED: LIDOCAINE 1% INJ 10MG/ML (20 ML MDV) SQ ONE (12:58)
[2022-01-31] MEDS ORDERED: VERAPAMIL SYRINGE (5 MG/10 ML) INTRAARTER ONE (13:00)
[2022-01-31] MEDS: HEPARIN SODIUM 1,000 UN/ML (10ML VL) IV ONE ×2 (13:01→13:15)
[2022-01-31] MEDS: NITROGLYCERIN 1000MCG/10ML SYRINGE INTRACORON ONE ×2 (13:22→13:36)
[2022-01-31] MEDS ORDERED: CLOPIDOGREL 75 MG TAB ONE (13:29)
[2022-01-31] MEDS ORDERED: CLOPIDOGREL 75 MG TAB PO ONE (13:30)
[2022-01-31] MEDS ORDERED: IOPAMIDOL-370 125ML BTL INJ ONE (13:33)
[2022-01-31] MEDS ORDERED: ATROPINE SULFATE 0.1 MG/ML 10ML SYRINGE IV PRN (13:43)
[2022-01-31] MEDS ORDERED: RX INFO: IV CONTRAST WAS GIVEN 1 EACH MISC MISCELLANE PRN (13:43)
[2022-01-31] MEDS ORDERED: ZOLPIDEM 5 MG TAB PO PRN (13:43)
[2022-01-31] MEDS ORDERED: NITROGLYCERIN SL TABS 0.4 MG TAB SUBLINGUAL PRN (13:43)
[2022-01-31] MEDS ORDERED: MAG HYDROX/AL HYDROX/SIMETH 30 ML CUP PO PRN (13:43)
[2022-01-31] MEDS ORDERED: SODIUM CHLORIDE 0.9% 1,000 ML in EMPTY BAG 1 BAG IV SCH (13:45)
--- NOTE | 2022-01-31 13:53 | P.PCN ---
Date of Procedure: 01/31/22 Operative Findings: CARDIAC CATHETERIZATION AND PERCUTANEOUS CORONARY INTERVENTION PERFORMING PHYSICIAN: Lawrence Canada MD, VI PROCEDURE PERFORMED: 1. Selective right and left coronary angiogram 2. Left heart catheterization 3. Successful stenting of distal right coronary artery using 2.5 x 15 mm Xience CHEYANNE with an excellent angiographic results 4. Successful stenting of the distal left circumflex using 3.25 x 15 mm Xience DESA with an excellent angiographic results INDICATION: This is a 66-year-old gentleman with CAD and prior stenting of the RCA and LCx and LAD who presented to the hospital with a chest discomfort. He underwent myocardial perfusion imaging stress is and that revealed an inferior ischemia and because of that a heart catheterization was advised COMPLICATION: None APPROACH: Right radial artery LEVEL OF SEDATION: Moderate with the sedation time off 43 minutes PROCEDURE DESCRIPTION: After obtaining an informed consent the patient was brought to the cardiac labor relations teacher. Right radial artery was cannulated using micropuncture technique, the micropuncture wire passed easily then I placed a 6-Japanese sheath at the right radial artery. Subsequently a give the patient 2 mg of probable DAVE and a total of 8000 use of heparin IV. Selective right and left coronary angiogram performed using JR4 for the right coronary system and JL 3.5 for the left coronary system. After that left heart catheterization was performed using the JL 3.5 which cross the aortic valve and I did pulled back across the valve. After that I did intervene on the RCA as well as LCx. SELECTIVE CORONARY ANGIOGRAM: The right coronary artery: Is a large caliber vessel and a dominant vessel. The proximal RCA has mild disease only. The mid RCA has intermediate lesion appears to be in the range of 50% and RCA was stented after that and the stent is patent. The RCA distally just before the bifurcation into PDA and PLV branch has a critical lesion appears to be in the range of 90-99%. Left main: Almost nonexcess. The left circumflex: Is a large caliber vessel and nondominant vessel. The proximal left circumflex appears to have mild disease only. The mid left circumflex appeared to have mild disease only and gives rises into an OM branch which appeared to be stented and the stent is patent. The distal left circumflex is a stented and the stent is patent but just proximal to the stent there is an area which appears to have a tight lesion in the range of 90-95% as well. The left anterior descending artery: Is a large caliber vessel. The proximal LAD is a stented. The mid LAD is a stented as well. Between the stent in the proximal and mid LAD there is a lesion appeared to be in the range of 30-40%. The LAD after the distal stent appeared to be diffusely diseased up to about 40-50%. HEMODYNAMICS: The LVEDP was about 4 mmHg without significant gradient across aortic valve PCI OF THE RCA and LCx: Anticoagulation was initiated using heparin. Continuous ACT monitoring was performed throughout the case. For the lesion in the right coronary artery I did engage the RCA using JR4 guiding catheter. I did wire it using a whisper wire. Predilatation was performed using 2.0 x 12 mm balloon before I deployed 2.5 x 15 mm stent where the stent was positioned under fluoroscopy guidance and deployed under its bronson nal pressure. Following angiogram showed an excellent angiographic results. For the lesion in the LCx I did engage the LCx is in JL 3 guiding catheter. I did wired using a whisper wire. After that I did direct stenting of the lesion using 3.25 x 15 mm stent where the stent again was positioned under fluoroscopy guidance and deployed under its nominal pressure. The following angiogram showed excellent angiographic results. CONCLUSION: #1 Intermittent episodes of chest discomfort in this 66-year-old gentleman with triple vessel stenting who underwent a stress test and that came in to be remarkable for inferior reversibility #2 Critical disease involving the distal right coronary artery. I did perform successful stenting of the RCA with an excellent angiographic results #3 Critical disease involving the distal left circumflex. I did perform successful stenting of the LCx with an excellent angiographic results #4 Patent stents in both the proximal and mid LAD with diffuse disease involving the LAD up to about 50% #5 Low left sided filling pressure POSTPROCEDURE MANAGEMENT: #1 dual antiplatelet therapy #2 aggressive cholesterol control #3 follow-up with the patient
[2022-01-31 14:17] VITALS: BMI 28.1
[2022-01-31] MEDS: LOSARTAN 50 MG TAB PO SCH (15:32)
[2022-01-31 18:43] VITALS: RESP 16
[2022-01-31] MEDS: SODIUM CHLORIDE 0.9% 1,000 ML IV SCH (19:37)
--- NOTE | 2022-01-31 20:03 | P.PN ---
Progress Note - Text Progress Note Date: 01/31/22 History of presenting complaint: This is a pleasant 66-year-old patient of Dr. Mcintyre. Follows with cardiology Dr. Dickens. Chronic stable medical conditions include coronary artery disease with stent last one about 2 years ago, hypertension, hyperlipidemia, chronic low back pain, smoker. Admitted with chest pain. Nuclear stress test came back showing positive. January 31: Saw the patient this morning. Currently no chest pain. Pending cardiac catheterization. Underwent successful stenting to the right coronary artery and distal left circumflex by Dr. Dickens. Active Medications Al Hydroxide/Mg Hydroxide (Mag Hydrox/Al Hydrox/Simeth 30 Ml Cup) 30 ml PO Q4HR PRN PRN Reason: Heartburn Alprazolam (Alprazolam 0.25 Mg Tab) 0.25 mg PO Q6HR PRN PRN Reason: Mild Anxiety Alprazolam (Alprazolam 0.5 Mg Tab) 0.5 mg PO Q6HR PRN PRN Reason: Moderate Anxiety Amlodipine Besylate (Amlodipine 10 Mg Tab) 10 mg PO HS [facility] Last Admin: 01/30/22 21:01 Dose: 10 mg Documented by: Aspirin (Aspirin 81 Mg) 81 mg PO DAILY [facility] Last Admin: 01/31/22 07:39 Dose: Not Given Documented by: Atorvastatin Calcium (Atorvastatin 40 Mg Tab) 40 mg PO DAILY [facility] Last Admin: 01/31/22 07:42 Dose: 40 mg Documented by: Atropine Sulfate (Atropine Sulfate 0.1 Mg/Ml 10ml Syringe) 0.5 mg IV ONCE PRN PRN Reason: Symptomatic Bradycardia Carvedilol (Carvedilol 12.5 Mg Tab) 25 mg PO BID [facility] Last Admin: 01/31/22 07:42 Dose: 25 mg Documented by: Clopidogrel Bisulfate (Clopidogrel 75 Mg Tab) 75 mg PO DAILY [facility]; Protocol Hydrochlorothiazide (Hydrochlorothiazide 25 Mg Tab) 25 mg PO DAILY [facility] Last Admin: 01/31/22 07:43 Dose: 25 mg Documented by: Sodium Chloride (Saline 0.9%) 1,000 mls @ 75 mls/hr IV .[id number] [facility] Last Admin: 01/31/22 19:37 Dose: Not Given Documented by: Losartan Potassium (Losartan 50 Mg Tab) 100 mg PO DAILY@1500 [facility] Last Admin: 01/31/22 15:32 Dose: 100 mg Documented by: Meclizine HCl (Meclizine 25 Mg Tab) 25 mg PO TID PRN PRN Reason: DIZZINESS Miscellaneous Information (Rx Info: Iv Contrast Was Given 1 Each Misc) 1 each MISCELLANE DAILY PRN PRN Reason: Per Protocol Stop: 02/02/22 13:44 Naloxone HCl (Naloxone 0.4 Mg/Ml 1 Ml Vial) 0.2 mg IV Q2M PRN PRN Reason: Opioid Reversal Nitroglycerin (Nitroglycerin Sl Tabs 0.4 Mg Tab) 0.4 mg SUBLINGUAL Q5M PRN PRN Reason: Chest Pain Nitroglycerin (Nitroglycerin Sl Tabs 0.4 Mg Tab) 0.4 mg SUBLINGUAL Q5M PRN PRN Reason: Chest Pain Spironolactone (Spironolactone 25 Mg Tab) 25 mg PO DAILY [facility] Last Admin: 01/31/22 07:42 Dose: 25 mg Documented by: Zolpidem Tartrate (Zolpidem 5 Mg Tab) 5 mg PO HS PRN PRN Reason: Insomnia Past medical history to include: Coronary artery disease with stent last one about 2008, hypertension, hyperlipidemia, chronic low back pain Social history: Patient is on disability. . 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 Smokes a pipe. 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 Conjunctiva normal. NECK: JVD not raised; masses not palpable. HEART: First and second heart sounds are normal; no edema. LUNGS:Respiratory rate normal; decreased breath sounds. ABDOMEN: Soft, nontender, liver spleen not palpable, no masses palpable. PSYCH: Alert and oriented x3; mood and affect normal. INVESTIGATIONS, reviewed in the clinical context: White count 5.9 hemoglobin 14.8 potassium 4.3 BUN 39 creatinine 1.33 LDL 106 EKG: Normal sinus rhythm 2-D echo: EF 60-65%. Chest x-ray: Unremarkable Assessment and plan: -Unstable angina Positive nuclear stress test. Troponin negative -Cardiac catheterization with stent to RCA and left circumflex: Today Aspirin, Plavix -Coronary artery disease with multiple stents, aspirin Lipitor Coreg -Essential hypertension Norvasc 10 mg daily, Coreg 25 mg twice a day, Cozaar 100 mg daily -Hyperlipidemia Lipitor 40 mg daily at bedtime -Chronic nicotine dependence, pipe smoker Counseled Patient is an aspirin Plavix. Other medications to continue. Repeat BMP in the morning. Hold off Aldactone and hydrochlorothiazide.
[2022-01-31] MEDS: amLODIPine 10 MG TAB PO SCH (20:45)
[2022-02-01] MEDS: SODIUM CHLORIDE 0.9% 1,000 ML IV SCH (03:22)
[2022-02-01 08:05] LABS: African American GFR (CKD) 81 (>60 ml/min/1.73 sqM); Anion Gap 6 mmol/L; Blood Urea Nitrogen 29 mg/dL (9-20); Carbon Dioxide 23 mmol/L (22-30); Chloride 105 mmol/L (98-107); Glucose 186 mg/dL (74-99); Non-African American GFR(CKD) 70 (>60 ml/min/1.73 sqM); Potassium 4.4 mmol/L (3.5-5.1); Sodium 134 mmol/L (137-145)
[2022-02-01 08:07] VITALS: BP 137/72; PULSE 100; TEMP 98.2
[2022-02-01] MEDS: ASPIRIN 81 MG PO SCH (08:22)
[2022-02-01] MEDS: ATORVASTATIN 40 MG TAB PO SCH ×2 (08:23→08:24)
[2022-02-01] MEDS: carvediloL 12.5 MG TAB PO SCH (08:23)
[2022-02-01] MEDS ORDERED: CLOPIDOGREL 75 MG TAB PO SCH (09:00)
--- NOTE | 2022-02-01 14:53 | P.DS ---
Providers Date of admission: 01/30/22 13:37 Expected date of discharge: 02/01/22 Attending physician: Spencer Alba Consults: 01/29/22 22:28 Consult Physician Urgent Consulting Provider: Rito Rodney Consult Reason/Comments: acute chest pain possible acs Do you want consulting provider notified?: Yes 01/31/22 13:44 Consult Physician Routine Consulting Provider: Rito Rodney Consult Reason/Comments: Post Interventional patient Do you want consulting provider notified?: Already Contacted Primary care physician: Brandon Mcintyre [facility] Course: History of presenting complaint: This is a pleasant 66-year-old patient of Dr. Mcintyre. Follows with cardiology Dr. Dickens. Chronic stable medical conditions include coronary artery disease with stent last one about 2 years ago, hypertension, hyperlipidemia, chronic low back pain, smoker. Admitted with chest pain. Nuclear stress test came back showing positive. January 31: Saw the patient this morning. Currently no chest pain. Pending cardiac catheterization. Underwent successful stenting to the right coronary artery and distal left circumflex by Dr. Dickens. February 01: Stable. Ambulating. No cardiac symptoms. Care was discussed with the patient. Questions answered. Per cardiology 10 mg of Lipitor. Discussion and discharge planning more than 35 minutes Past medical history to include: Coronary artery disease with stent last one about 2008, hypertension, hyperlipidemia, chronic low back pain Social history: Patient is on disability. . 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 Conjunctiva normal. NECK: JVD not raised; masses not palpable. HEART: First and second heart sounds are normal; no edema. LUNGS:Respiratory rate normal; decreased breath sounds. ABDOMEN: Soft, nontender, liver spleen not palpable, no masses palpable. PSYCH: Alert and oriented x3; mood and affect normal. INVESTIGATIONS, reviewed in the clinical context: February 01: Creatinine 1.11 potassium 4.4 White count 5.9 hemoglobin 14.8 potassium 4.3 BUN 39 creatinine 1.33 LDL 106 EKG: Normal sinus rhythm 2-D echo: EF 60-65%. Chest x-ray: Unremarkable Assessment and plan: -Unstable angina Positive nuclear stress test. Troponin negative -Cardiac catheterization with stent to RCA and left circumflex: Dr. Dickens Aspirin, Plavix -Coronary artery disease with multiple stents, aspirin Lipitor Coreg -Essential hypertension Norvasc 10 mg daily, Coreg 25 mg twice a day, Cozaar 100 mg daily -Hyperlipidemia Lipitor 10 mg daily at bedtime -Chronic nicotine dependence, pipe smoker Counseled Disposition: Home. Plan - Discharge Summary New Discharge Prescriptions: New Atorvastatin Calcium [Lipitor] 10 mg PO HS #30 tab Clopidogrel [Plavix] 75 mg PO DAILY 30 Days #30 tab Continue Nitroglycerin Sl Tabs [Nitrostat] 0.4 mg SUBLINGUAL Q5M PRN #25 tab PRN Reason: Chest Pain Losartan Potassium 100 mg PO DAILY@1500 amLODIPine [Norvasc] 10 mg PO HS Carvedilol [Coreg] 25 mg PO BID Aspirin EC [Ecotrin Low Dose] 81 mg PO DAILY Meclizine HCl 25 mg PO TID PRN PRN Reason: DIZZINESS Discontinued Spironolactone [Aldactone] 25 mg PO DAILY hydroCHLOROthiazide [Hydrodiuril] 25 mg PO DAILY #90 tab Discharge Medication List Nitroglycerin Sl Tabs [Nitrostat] 0.4 mg SUBLINGUAL Q5M PRN #25 tab 12/23/18 [Rx] Losartan Potassium 100 mg PO DAILY@1500 12/24/18 [History] Aspirin EC [Ecotrin Low Dose] 81 mg PO DAILY 01/25/20 [History] Carvedilol [Coreg] 25 mg PO BID 01/25/20 [History] amLODIPine [Norvasc] 10 mg PO HS 01/25/20 [History] Meclizine HCl 25 mg PO TID PRN 09/06/20 [History] Clopidogrel [Plavix] 75 mg PO DAILY 30 Days #30 tab 01/31/22 [Rx] Atorvastatin Calcium [Lipitor] 10 mg PO HS #30 tab 02/01/22 [Rx] Follow up Appointment(s)/Referral(s): Brandon Mcintyre MD [Primary Care Provider] - 1-2 days Lawrence Cnaada MD [STAFF PHYSICIAN] - 1 Week Patient Instructions/Handouts: Heart Healthy Diet (ED), After Radial Heart Catheterization (GEN), Left Heart Catheterization (DC) Discharge Disposition: HOME SELF-CARE
--- NOTE | 2022-02-01 16:21 | P.PN ---
Subjective Progress Note Date: 02/01/22 This is Manoj lr NP, I'm dictating on behalf of Dr. Love's H&P and A&P. Patient was interviewed and examined. Patient is a pleasant 66-year-old male who initially presented to the hospital with acute chest pain and possible ACS, who underwent went PCI to the RCA and LCA. Patient is doing well today, states that he feels much better. Is denying chest pain and shortness of breath at this time. Patient does report that he does not tolerate statins very well. He has been on atorvastatin while here in the hospital with complaints of muscle pain. GENERAL: Well-appearing, well-nourished and in no acute distress. NECK: Supple without JVD or thyromegaly. LUNGS: Breath sounds clear to auscultation bilaterally. Respiration equal and unlabored. No wheezes, rales or rhonchi. HEART: Regular rate and rhythm without murmurs, rubs or gallops. S1 and S2 heard. EXTREMITIES: Normal range of motion, no edema. No clubbing or cyanosis. Peripheral pulses intact and strong. VITALS: Temp 98.2, pulse 100, respirations 16, blood pressure 137/72, O2 saturation 90% on room air TELEMETRY: Normal sinus rhythm LABS: White count 5.9, hemoglobin 14.8, platelets 146, sodium 134, potassium 4.4, B1 29, creatinine 1.1 hemoglobin A1c 7.7, magnesium 1.9, troponin 3 less than 0.012, triglycerides 191, cholesterol 172, LDL 106, HDL 27.6 IMPRESSION/PLAN: 1. Acute coronary syndrome-patient had stent placement to RCA and LCA distally. Is doing well. Continue aspirin and Plavix. 2. Hypertriglyceridemia-recommend starting Crestor 5 mg 1 tab daily, Zetia 10 mg 1 tab daily. Patient may benefit from PSK 9 injections. 3. Hypertension-continue Norvasc, Coreg, Cozaar 4. Chronic nicotine dependence-consider quitting. From a cardiology standpoint the patient can be discharged at this time. Objective - Vital Signs Vital signs: Vital Signs Temp 98.2 F 02/01/22 08:00 Pulse 100 02/01/22 08:00 Resp 16 02/01/22 08:00 BP 137/72 02/01/22 08:00 Pulse Ox 90 L 02/01/22 08:00 Intake & Output 01/31/22 02/01/22 02/01/22 18:59 06:59 18:59 Intake Total 100 Balance 100 Weight 81.65 kg Intake: IV 100 Other: Voiding Method Toilet # Voids 2 2 - Labs CBC & Chem 7: 01/31/22 06:53 02/01/22 07:28 Labs: Abnormal Lab Results - Last 24 Hours (Table) 01/31/22 01/31/22 02/01/22 Range/Units 06:53 06:53 07:28 Sodium 134 L (137-145) mmol/L BUN 29 H (9-20) mg/dL Glucose 186 H (74-99) mg/dL Hemoglobin A1c 7.7 H (0.0-6.0) % Triglycerides 191.00 H (0.00-149.00) mg/dL HDL Cholesterol 27.60 L (40.00-60.00) mg/dL
--- NOTE | 2022-02-06 11:12 | EST ---
- Stress Test Note Stress Test Results/Findings: Exam Performed: NM stress lexiscan cardiolite Exam Date: 01/30/22 Reason for Exam: CHEST DISCOMFORT Height: 5 ft 7 in Weight: 81.65 kg Protocol: LEXISCAN CARDIOLITE Stage: NA Duration of Exercise: NA Resting Heart Rate: 64 Resting Blood Pressure: 133/77 Maximum Achieved Heart Rate: 85 Maximum Achieved Blood Pressure: 150/83 85% PMHR: 134 100% PMHR: 158 METS: NA Technologist Comment: Stress Test Results/Findings: This is a 66-year-old gentleman with history of hypertension smoking history and previous OH being evaluated for symptoms of chest pain. No Stress data: Baseline EKG showed sinus rhythm with normal CA interval and QRS duration. Blood pressure at rest is 133/77 with pulse rate of 64. A standard dose of Lexiscan was infused. EKGs taken during and after infusion did not reveal any significant changes from the baseline. Final impression: #1. Negative Lexiscan stress test #2. Report on the nuclear images to be provided by the radiologist. SANTINO
== END 2022-02-01 13:32 | disposition home or self-care (01) | DRG 247 ==
LOC: EC 20:14 → 6NMEDSUR 22:27 → OBSVTOIN 01-30 13:37
PROVIDERS: ADMIT Hospitalist; ATTEND Hospitalist
PROC: 027135Z Dilation of Coronary Artery, Two Arteries with Two Drug-eluting Intraluminal Devices, Percutaneous Approach (ICD-10-PCS; principal; 2022-01-31 09:00)
PROC: 4A023N7 Measurement of Cardiac Sampling and Pressure, Left Heart, Percutaneous Approach (ICD-10-PCS; principal; 2022-01-31 09:00)
PROC: B2111ZZ Fluoroscopy of Multiple Coronary Arteries using Low Osmolar Contrast (ICD-10-PCS; principal; 2022-01-31 09:00)
DX: I25.110 Atherosclerotic heart disease of native coronary artery with unstable angina pectoris (principal); I24.9 Acute ischemic heart disease, unspecified; E87.1 Hypo-osmolality and hyponatremia; I25.2 Old myocardial infarction; I25.5 Ischemic cardiomyopathy; I10 Essential (primary) hypertension; G89.29 Other chronic pain; M54.50 Low back pain, unspecified; E78.1 Pure hyperglyceridemia; E78.5 Hyperlipidemia, unspecified; R39.2 Extrarenal uremia; F17.290 Nicotine dependence, other tobacco product, uncomplicated; F41.9 Anxiety disorder, unspecified; G47.00 Insomnia, unspecified; Z79.02 Long term (current) use of antithrombotics/antiplatelets; Z79.82 Long term (current) use of aspirin; Z79.899 Other long term (current) drug therapy; Z82.49 Family history of ischemic heart disease and other diseases of the circulatory system; Z83.3 Family history of diabetes mellitus; Z98.890 Other specified postprocedural states; Z88.2 Allergy status to sulfonamides; Z90.89 Acquired absence of other organs
CPT/HCPCS: 36415; 71046; 78452; 80048; 80053; 80061; 83036; 83690; 83735; 83880; 84484; 85025; 85610; 85730; 93005; 93017; 93306; 93458; 99285

== ENCOUNTER → 2022-09-11 | Outpatient (CLI) | payer MEDICARE ==
--- NOTE | 2022-09-11 12:16 | US ---
EXAMINATION TYPE: US renal artery duplex complete DATE OF EXAM: 09/11/2022 COMPARISON: 02/09/2019 CLINICAL HISTORY: 67-year-old male I10 Hypertension. Intermittent HTN for 2-3 years TECHNIQUE: Grayscale, color, and Doppler waveform assessment of the kidneys and renal arteries. FINDINGS: MEASUREMENTS: RENAL SIZE: Rt Kidney: 10.7 x 4.9 x 4.7cm Lt Kidney: 10.8 x 4.3 x 5.4cm No hydronephrosis on either side. 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 Visualized p ortions of abdominal aorta appear wnl. Kidneys appear unremarkable. Bilateral renal artery velocities appear mildly elevated IMPRESSION: Equivocal for bilateral renal artery stenosis. The exam is technically limited due to excessive bowel gas. While the peak systolic velocities are elevated on both sides, the renal artery to aortic ratio s and resistive indices fall within acceptable limits. If persistent concern, consider contrast enhan cesar CT angiography or contrast enhanced MR angiography to further assess.
== END | disposition home or self-care (01) ==
LOC: RADUSWWP 08:36
PROVIDERS: ATTEND Internal Medicine Interventional Cardiology
DX: I70.1 Atherosclerosis of renal artery (principal); R14.3 Flatulence; I10 Essential (primary) hypertension
CPT/HCPCS: 93975

== ENCOUNTER 2023-05-15 13:18 | Day surgery (SDC) | payer MEDICARE ==
[2023-05-12 11:27] VITALS: BMI 28.1
[~2023-05-15 13:18] MED LIST: LACTATED RINGERS 1,000 ML IV SCH
[2023-05-15 13:53] VITALS: RESP 16; TEMP 98.6
[2023-05-15] MEDS ORDERED: PROPOFOL 10 MG/ML 20 ML VIAL IV ONE (14:15)
[2023-05-15] MEDS ORDERED: LIDOCAINE 2% INJ 20 MG/ML (2 ML VIAL) ONE (14:15)
--- NOTE | 2023-05-15 14:28 | P.PCN ---
Date of Procedure: 05/15/23 Procedure(s) Performed: BRIEF HISTORY: Patient is a 67-year-old, pleasant, white male scheduled for an upper endoscopy as a part of evaluation of left upper quadrant abdominal pain for the last several months duration. He does have history of GERD but lately denies any heartburn, dysphagia or odynophagia PROCEDURE PERFORMED: Esophagogastroduodenoscopy with biopsy. PREOPERATIVE DIAGNOSIS: Left upper quadrant abdominal pain and history of GERD. IV sedation per anesthesia. PROCEDURE: After informed consent was obtained, the patient was brought into the endoscopy unit. IV sedation was administered by Anesthesia under continuous monitoring. Initially the Olympus GIF-140 video endoscope was inserted into the mouth. Esophagus intubated without any difficulty. It was gradually advanced into the stomach and duodenum and carefully examined. The bulb and the second part of the duodenum had erythema, scattered erosions and one superficial ulceration. The scope at this time was withdrawn to the stomach, adequately insufflated with air, and upon careful examination, mucosa of the antrum, had scattered erosions and biopsies were done from this area. Mucosa of the body, cardia and the fundus appeared normal. The scope was then withdrawn into the esophagus. The GE junction was located at 39 cm from the incisors. Small hiatal hernia noted. The esophagus appeared normal. There were no erosions or ulcerations seen and the patient tolerated the procedure well. IMPRESSION: 1. Small hiatal hernia. 2. Mild duodenitis and multiple superficial duodenal erosions and small duodenal ulcer. 3. Mild antral gastritis RECOMMENDATIONS: The findings of this examination were discussed with the luis kelly as well as a family. He was advised to follow with the biopsy results. Recommend starting on Prilosec 20 mg daily for 3 months. Dysphagia. About diet modification antireflux measures.
[2023-05-15 14:51] VITALS: BP 133/70; PULSE 66
== END 2023-05-15 15:14 | disposition home or self-care (01) ==
LOC: ORWHC2ENDO 13:18
PROVIDERS: ATTEND Internal Medicine Gastroenterology
DX: K29.90 Gastroduodenitis, unspecified, without bleeding (principal); K44.9 Diaphragmatic hernia without obstruction or gangrene; K26.9 Duodenal ulcer, unspecified as acute or chronic, without hemorrhage or perforation; K21.9 Gastro-esophageal reflux disease without esophagitis; I25.10 Atherosclerotic heart disease of native coronary artery without angina pectoris; Z95.5 Presence of coronary angioplasty implant and graft; F17.210 Nicotine dependence, cigarettes, uncomplicated; Z79.899 Other long term (current) drug therapy; Z88.2 Allergy status to sulfonamides; Z79.82 Long term (current) use of aspirin
CPT/HCPCS: 88305; 43239; J2704; J2001

== ENCOUNTER → 2025-03-16 | Outpatient (CLI) | payer MEDICARE ==
[2025-03-16 14:20] LABS: HCT 49.2 % (39.6-50.0); HGB 17.4 g/dL (13.0-17.0); MCH 31.3 pg (27.0-32.0); MCHC 35.4 g/dL (32.0-37.0); MCV 88.5 fL (80.0-97.0); Mean Platelet Volume 10.4 fL (9.5-12.2); Platelet Count 175 10*3/uL (140-440); RBC 5.56 10*6/uL (4.40-5.60); RDW 12.6 % (11.5-14.5); WBC 6.76 10*3/uL (4.50-10.00)
[2025-03-16 14:31] LABS: African American GFR (CKD) 78 (>60 ml/min/1.73 sqM); Anion Gap 6 mmol/L; Blood Urea Nitrogen 21 mg/dL (9-20); Calcium 9.6 mg/dL (8.4-10.2); Carbon Dioxide 29 mmol/L (22-30); Chloride 101 mmol/L (98-107); Glucose 140 mg/dL (74-99); Non-African American GFR(CKD) 68 (>60 ml/min/1.73 sqM); Potassium 5.1 mmol/L (3.5-5.1); Sodium 136 mmol/L (137-145)
--- NOTE | 2025-03-16 16:34 | CT ---
EXAMINATION TYPE: CT angio neck DATE OF EXAM: 03/16/2025 COMPARISON: None CLINICAL INDICATION: Male, 69 years old with history of I65.139 CAROTID STENOSIS; PHH, Carotid stenos is. TECHNIQUE: CTA scan of the head and neck is performed with IV Contrast, patient injected with 76 ml mL of Isovue 370, axial images are obtained, coronal and sagittal reformatted images are reviewed. 3D reconstructed images are created on an independent workstation and reviewed. CT DLP: 397.[address] CTDI: mGy Automated exposure control for dose reduction was used. NASCET criteria was used in interpretation of this exam? FINDINGS: There is a hemodynamically 60-70% focal stenosis of the proximal right internal carotid artery. There is no significant stenosis of the left internal carotid artery. The brachiocephalic origins are widely patent. IMPRESSION: Hemodynamically significant 60-70% proximal right internal carotid artery stenosis. [facility], Workstation: RICHARD 03/16/2025 4:32 PM
== END | disposition home or self-care (01) ==
LOC: RADCTMAIN 14:01
PROVIDERS: ATTEND Internal Medicine Interventional Cardiology
DX: I65.21 Occlusion and stenosis of right carotid artery (principal); I65.8 Occlusion and stenosis of other precerebral arteries
CPT/HCPCS: 80048; 85027; 70498; 36415; Q9967

== ENCOUNTER 2025-05-09 19:56 | Observation (INO) | payer MEDICARE ==
--- NOTE | 2025-05-09 20:30 | ED ---
General Adult HPI - General Source: patient, RN notes reviewed Mode of arrival: ambulatory Limitations: no limitations <Sachi Cross - Last Filed: 05/09/25 20:30> <Cassi Goodman - Last Filed: 05/12/25 16:47> - General Chief complaint: Chest Pain Stated complaint: hypertension Time Seen by Provider: 05/09/25 20:30 - History of Present Illness Initial comments: Quick note: 69-year-old male presented the ER for evaluation of headache. Patient has an extensive cardiac history with 10 known stents. He follows up with Dr. Dickens. States around 5 PM he had a gradual onset of headache and mild lightheadedness. Patient states he is concerned given he has a known partially blocked carotid artery. He denies any current chest pain, shortness of breath, nausea, vomiting or diaphoresis. Denies visual disturbances. (Sachi Cross) Patient is a 69-year gentleman has medical history of hypertension, CAD presenting today for headache and hypertension. Patient states that his blood pressure is usually difficult to control so he does check it frequently to make sure that it is not too low before taking his blood pressure medications. He states today has been high throughout the day with highest number being 198/101. States that was around 6 6:30 PM and around that time developed a mild headache at the back of his head. He also noted associated chest discomfort described as a tightness across the middle of his chest. He was told to take an extra half a tablet of carvedilol if his blood pressure is running high so he did do this this afternoon. Upon arrival to the ER his symptoms have since resolved. He currently denies strokelike symptoms such as changes in vision, numbness, weakness, dizziness, slurred speech. Denies shortness of breath, lower extremity swelling, fevers, chills, cough, hemoptysis, abdominal pain, nausea, vomiting diaphoresis melena or hematochezia. He does have a history of 10 cardiac stents (Cassi Goodman) - Related Data Home Medications Medication Instructions Recorded Confirmed Losartan Potassium 100 mg PO DAILY@1500 12/24/18 05/10/25 Aspirin EC [Ecotrin Low Dose] 81 mg PO DAILY 01/25/20 05/10/25 amLODIPine [Norvasc] 10 mg PO HS 01/25/20 05/10/25 carvediloL [Coreg] 25 mg PO BID 01/25/20 05/10/25 Meclizine HCl 25 mg PO TID PRN 09/06/20 05/10/25 Cetirizine HCl 10 mg PO DAILY PRN 05/12/23 05/10/25 Ezetimibe [Zetia] 10 mg PO HS 05/12/23 05/10/25 hydroCHLOROthiazide 25 mg PO DAILY PRN 05/12/23 05/10/25 Spironolactone [Aldactone] 25 mg PO DAILY 05/10/25 05/10/25 carvediloL [Coreg] 12.5 mg PO DAILY@1500 PRN 05/10/25 05/10/25 Previous Rx's Medication Instructions Recorded Nitroglycerin Sl Tabs [Nitrostat] 0.4 mg SUBLINGUAL Q5M PRN #25 tab 12/23/18 Allergies Allergy/AdvReac Type Severity Reaction Status Date / Time Sulfa (Sulfonamide AdvReac HIGH FEVER Verified 05/10/25 09:28 Antibiotics) Review of Systems ROS Other: All systems not noted in ROS Statement are negative. <Sachi Cross - Last Filed: 05/09/25 20:30> ROS Other: All systems not noted in ROS Statement are negative. <Cassi Goodman - Last Filed: 05/12/25 16:47> ROS Statement: Those systems with pertinent positive or pertinent negative responses have been documented in the HPI. Past Medical History Past Medical History: Hyperlipidemia, Hypertension, Myocardial Infarction ([place]) Additional Past Medical History / Comment(s): BACK PAIN; FAMILY HX OF DM - PT STATES THAT HE PERIODICALLY CHECKS HIS CBG AND IT IS SOMETIMES "HIGH" Last Myocardial Infarction Date:: 2018 History of Any Multi-Drug Resistant Organisms: None Reported Past Surgical History: Adenoidectomy, Heart Catheterization With Stent, Orthopedic Surgery, Tonsillectomy Additional Past Surgical History / Comment(s): FINGER ON LEFT HAND SEWN ON - 198 0; 5 STENTS - DR AYON ALL OF THEM IN - 1ST ONE IN 2001 AND LAST ONE IN 2010, 3 stents November 2018 Past Anesthesia/Blood Transfusion Reactions: No Reported Reaction Date of Last Stent Placement:: 2018 Past Psychological History: No Psychological Hx Reported Smoking Status: Current every day smoker Past Alcohol Use History: None Reported Past Drug Use History: None Reported - Past Family History Father Family Medical History: Cancer, Hypertension Additional Family Medical History / Comment(s): VALVE , colon cancer lymphoma Mother Family Medical History: Coronary Artery Disease (CAD), Diabetes Mellitus Additional Family Medical History / Comment(s): CABG <Sachi Cross - Last Filed: 05/09/25 20:30> General Exam Limitations: no limitations <Sachi Cross - Last Filed: 05/09/25 20:30> <Cassi Goodman - Last Filed: 05/12/25 16:47> - General Exam Comments Initial Comments: Visual Physical Exam Vital signs reviewed General: Well-appearing, nontoxic, no acute distress. Head: Normocephalic, atraumatic Eyes: PERRLA, EOMI ENT: Airway patent Chest: Nonlabored breathing Skin: No visual rash, normal skin tone Neuro: Alert and oriented 3 Musculoskeletal: No gross abnormalities (Sachi Cross) PE: CONSTITUTIONAL: [no apparent distress, well appearing] SKIN: [warm, dry, no jaundice, hives or petechiae] EYES:[ pupils are equally round, extraocular movements intact without nystagmus, clear conjunctiva, non-icteric sclera] HENT: [normocephalic, atraumatic, moist mucus membranes, oropharynx clear without exudates] NECK: , [Full range of motion, normal appearance] PULMONARY: Scant rhonchi in the right lower lung field otherwise no wheezes, or rales, normal excursion, no accessory muscle use and no stridor] CARDIOVASCULAR:[ regular rate, rhythm, normal S1 and S2. No appreciated murmurs, rubs or gallops. Strong radial pulses with intact distal perfusion. No lower extremity edema] GASTROINTESTINAL: [soft, active bowel sounds throughout, non-tender, non- distended, no palpable masses, no rebound or guarding. No hepatosplenomegaly] GENITOURINARY: MUSCULOSKELETAL: [Extremities have no gross deformity, no edema, redness, or swelling. No calf swelling ] NEUROLOGIC: [_a/o x 3, GCS 15, normal mentation and speech. 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 ] Respiratory 18 Rate Blood Pressure 167/80 152/73 Blood Pressure [Left Arm] Blood Pressure [Right Arm] O2 Sat by Pulse 95 Oximetry 05/10/25 05/10/25 05/10/25 05:09 08:00 11:54 Temperature 97.6 F Pulse Rate 62 Pulse Rate [ 62 63 House Painting Instructor ] Respiratory 17 18 18 Rate Blood Pressure 147/70 Blood Pressure 157/110 137/74 [Left Arm] Blood Pressure 152/88 [Right Arm] O2 Sat by Pulse 95 98 98 Oximetry 05/10/25 05/10/25 13:29 17:05 Temperature 97.9 F Pulse Rate 63 Pulse Rate [ 73 House Painting Instructor ] Respiratory 16 18 Rate Blood Pressure 141/81 Blood Pressure [Left Arm] Blood Pressure 139/86 [Right Arm] O2 Sat by Pulse 95 98 Oximetry EKG Findings - EKG Comments: EKG Findings:: Rate 61 bpm intervals within acceptable limits, normal axis, no significant ST elevations or depressions no arrhythmia <Cassi Goodman - Last Filed: 05/12/25 16:47> Medical Decision Making <Sachi Cross - Last Filed: 05/09/25 20:30> - Lab Data Result diagrams: 05/09/25 21:15 05/09/25 21:15 <Cassi Goodman - Last Filed: 05/12/25 16:47> - Medical Decision Making I performed the quick note portion of this chart. Electronically signed by Sachi Cross PA-C (Sachi Cross) Was pt. sent in by a medical professional or institution ([facility], ADAPTIVE PHYSICAL EDUCATOR, urgent care, hospital, or long term...) When possible be specific @ -No Did you speak to anyone other than the patient for history (EMS, parent, family, police, friend...)? What history was obtained from this source @ -No Did you review nursing and triage notes (agree or disagree)? Why? @ -I reviewed nursing and triage notes disagree with triage note, headache was gradual in onset and not sudden Differential Diagnosis (chest pain, altered mental status, abdominal pain women, abdominal pain men, vaginal bleeding, weakness, fever, dyspnea, syncope, headache, dizziness, GI bleed, back pain, seizure, CVA, palpatations, mental health, musculoskeletal)? @ -Differential Chest Pain: Stable Angina, Unstable Angina, STEMI, NSTEMI Aortic Dissection, pericarditis, pleurisy, chostochondirits, Pneumothorax, Musculoskeletal, Esophageal Spasm GERD, Cholecystitis, Pancreatitis, Zoster, this is not meant to be an all- inclusive list. Differential Headache: Migraine, tension, cluster, carbon monoxide, central venous thrombosis, pension karma temporal arteritis, acute closure glaucoma, intercranial hemorrhage, mastoiditis, sinusitis, head injury, this is not meant to be an all-inclusive list. EKG interpreted by me (3pts min.). @ -As above X-rays interpreted by me (1pt min.). @Personally reviewed CXR, i see no evidence of consolidation or pleural effusions CT interpreted by me (1pt min.). Reviewed CT brain, no evidence of hemorrhage or mass effect, agree with radiologist interpretation U/S interpreted by me (1pt. min.). @ -None done What testing was considered but not performed or refused? (CT, X-rays, U/S, labs)? Why? @ -None What meds were considered but not given or refused? Why? @ -None Did you discuss the management of the patient with other professionals (professionals i.e. , PA, ADAPTIVE PHYSICAL EDUCATOR, lab, RT, psych nurse, social sciences instructor, rn psych, teacher, admissions officer, case finishing machine adjuster)? Give summary @ -No Was smoking cessation discussed for >3mins.? @ -No Was critical care preformed (if so, how long)? @ -No Were there social determinants of health that impacted care today? How? (Homelessness, low income, unemployed, alcoholism, drug addiction, transportation, low edu. Level, literacy, decrease access to med. care, detention, rehab)? @ -No Was there de-escalation of care discussed even if they declined (Discuss DNR or withdrawal of care, Hospice)? @ -No What co-morbidities impacted this encounter? (DM, HTN, Smoking, COPD, CAD, Cancer, CVA, ARF, Chemo, Hep., AIDS, mental health diagnosis, sleep apnea, morbid obesity)? HTN Was patient admitted / discharged? Hospital course, mention meds given and route, prescriptions, significant lab abnormalities, going to OR and other pertinent info. @Admission- this is a pleasant 69-year gentleman presenting today for chest tightness and headache due to high blood pressure. Patient was initially seen and assessed in waiting room by triage JOHAN. CT brain, chest x-ray, basic labs ordered. Patient's blood pressure normal 167/80. Currently 156 systolic. He is asymptomatic. CT brain negative for acute process. JOHNSON described as gradual and mild in nature and now resolved, no associated neurologic deficits, for this reason I do not feel further workup (CTA or LP) is required to further r/o SAH. Initial troponin undetectable. Normal kidney function. Given chest tightness with hypertension and significant cardiac disease will admit for observation for chest pain. Home antihypertensives ordered. Case discussed with Dr. Alba who kindly accepted pt for admission. Undiagnosed new problem with uncertain prognosis? @ -No Drug Therapy requiring intensive monitoring for toxicity (Heparin, Nitro, Insulin, Cardizem)? @ -No Were any procedures done? @ -No Diagnosis/symptom? @Hypertensive urgency, chest pain Acute, or Chronic, or Acute on Chronic? @acute Uncomplicated (without systemic symptoms) or Complicated (systemic symptoms)? @complicated Side effects of treatment? @ -No Exacerbation, Progression, or Severe Exacerbation? @ -No Poses a threat to life or bodily function? How? (Chest pain, [place], [place], pneumonia, PE, COPD, DKA, ARF, appy, cholecystitis, CVA, Diverticulitis, Homicidal, Suicidal, threat to staff... and all critical care pts) @Potentially, if chest pain 2/2 ACS (Cassi Goodman) - Lab Data Lab Results 05/09/25 05/09/25 05/09/25 Range/Units 21:15 21:15 21:15 WBC 8.40 (4.50-10.00) 10*3/uL RBC 5.33 (4.40-5.60) 10*6/uL Hgb 16.6 (13.0-17.0) g/dL Hct 46.5 (39.6-50.0) % MCV 87.2 (80.0-97.0) fL MCH 31.1 (27.0-32.0) pg MCHC 35.7 (32.0-37.0) g/dL Plt Count 160 (140-440) 10*3/uL MPV 10.6 (9.5-12.2) fL Immature Gran % (Auto) 0.4 % Neutrophils % 71.9 % Lymphocytes % 19.2 % Monocytes % 6.4 % Eosinophils % 1.5 % Basophils % 0.6 % Immature Gran # 0.03 (0.00-0.04) 10*3/uL Neutrophils # 6.04 (1.80-7.70) 10*3/uL Lymphocytes # 1.61 (0.90-5.00) 10*3/uL Monocytes # 0.54 (0.20-1.00) 10*3/uL Eosinophils # 0.13 (0.04-0.35) 10*3/uL Basophils # 0.05 (0.00-0.10) 10*3/uL PT 11.7 (10.0-12.5) sec INR 1.1 (<1.2) APTT 23.7 (22.0-30.0) sec Sodium 137 (137-145) mmol/L Potassium 4.3 (3.5-5.1) mmol/L Chloride 105 (98-107) mmol/L Carbon Dioxide 23 (22-30) mmol/L Anion Gap 9 mmol/L BUN 18 (9-20) mg/dL Creatinine 0.94 (0.66-1.25) mg/dL Est GFR (CKD-EPI)AfAm >90 (>60 ml/min/1.73 sqM) Est GFR (CKD-EPI)NonAf 84 (>60 ml/min/1.73 sqM) Glucose 154 H (74-99) mg/dL Calcium 9.6 (8.4-10.2) mg/dL Magnesium 1.8 (1.6-2.3) mg/dL Total Bilirubin 0.8 (0.2-1.3) mg/dL AST 22 (17-59) U/L ALT 36 (4-49) U/L Alkaline Phosphatase 64 (38-126) U/L Troponin I (0.000-0.034) ng/mL Total Protein 6.5 (6.3-8.2) g/dL Albumin 4.1 (3.5-5.0) g/dL 05/09/25 Range/Units 21:15 WBC (4.50-10.00) 10*3/uL RBC (4.40-5.60) 10*6/uL Hgb (13.0-17.0) g/dL Hct (39.6-50.0) % MCV (80.0-97.0) fL MCH (27.0-32.0) pg MCHC (32.0-37.0) g/dL Plt Count (140-440) 10*3/uL MPV (9.5-12.2) fL Immature Gran % (Auto) % Neutrophils % % Lymphocytes % % Monocytes % % Eosinophils % % Basophils % % Immature Gran # (0.00-0.04) 10*3/uL Neutrophils # (1.80-7.70) 10*3/uL Lymphocytes # (0.90-5.00) 10*3/uL Monocytes # (0.20-1.00) 10*3/uL Eosinophils # (0.04-0.35) 10*3/uL Basophils # (0.00-0.10) 10*3/uL PT (10.0-12.5) sec INR (<1.2) APTT (22.0-30.0) sec Sodium (137-145) mmol/L Potassium (3.5-5.1) mmol/L Chloride (98-107) mmol/L Carbon Dioxide (22-30) mmol/L Anion Gap mmol/L BUN (9-20) mg/dL Creatinine (0.66-1.25) mg/dL Est GFR (CKD-EPI)AfAm (>60 ml/min/1.73 sqM) Est GFR (CKD-EPI)NonAf (>60 ml/min/1.73 sqM) Glucose (74-99) mg/dL Calcium (8.4-10.2) mg/dL Magnesium (1.6-2.3) mg/dL Total Bilirubin (0.2-1.3) mg/dL AST (17-59) U/L ALT (4-49) U/L Alkaline Phosphatase (38-126) U/L Troponin I <0.012 (0.000-0.034) ng/mL Total Protein (6.3-8.2) g/dL Albumin (3.5-5.0) g/dL Disposition <Sachi Cross - Last Filed: 05/09/25 20:30> <Cassi Goodman Last Filed: 05/12/25 16:47> Clinical Impression: Hypertensive urgency, Chest pain Disposition: ADMITTED IP TO THIS HOSP
[2025-05-09 21:22] LABS: Basophils # (A) 0.05 10*3/uL (0.00-0.10); Basophils % (A) 0.6 %; Eosinophils # (A) 0.13 10*3/uL (0.04-0.35); Eosinophils % (A) 1.5 %; HCT 46.5 % (39.6-50.0); HGB 16.6 g/dL (13.0-17.0); Lymphocytes # (A) 1.61 10*3/uL (0.90-5.00); Lymphocytes % (A) 19.2 %; MCH 31.1 pg (27.0-32.0); MCHC 35.7 g/dL (32.0-37.0); MCV 87.2 fL (80.0-97.0); Mean Platelet Volume 10.6 fL (9.5-12.2); Monocytes # (A) 0.54 10*3/uL (0.20-1.00); Monocytes % (A) 6.4 %; Neutrophils # (A) 6.04 10*3/uL (1.80-7.70); Neutrophils % (A) 71.9 %; Platelet Count 160 10*3/uL (140-440); RBC 5.33 10*6/uL (4.40-5.60); RDW 13.2 % (11.5-14.5)
[2025-05-09 21:34] LABS: INR 1.1 (<1.2); Partial Thromboplastin Time 23.7 sec (22.0-30.0); Prothrombin Time 11.7 sec (10.0-12.5)
[2025-05-09 21:39] LABS: ALT 36 U/L (4-49); AST 22 U/L (17-59); African American GFR (CKD) >90 (>60 ml/min/1.73 sqM); Albumin 4.1 g/dL (3.5-5.0); Alkaline Phosphatase 64 U/L (38-126); Anion Gap 9 mmol/L; Blood Urea Nitrogen 18 mg/dL (9-20); Calcium 9.6 mg/dL (8.4-10.2); Carbon Dioxide 23 mmol/L (22-30); Chloride 105 mmol/L (98-107); Glucose 154 mg/dL (74-99); Magnesium 1.8 mg/dL (1.6-2.3); Non-African American GFR(CKD) 84 (>60 ml/min/1.73 sqM); Potassium 4.3 mmol/L (3.5-5.1); Sodium 137 mmol/L (137-145); Total Bilirubin 0.8 mg/dL (0.2-1.3); Total Protein 6.5 g/dL (6.3-8.2)
--- NOTE | 2025-05-09 21:42 | XR ---
EXAMINATION TYPE: XR chest 2V DATE OF EXAM: 05/09/2025 9:25 PM COMPARISON: 04/21/2022 CLINICAL INDICATION: Male, 69 years old with history of cp, TECHNIQUE: XR chest 2V view(s) obtained. FINDINGS: The heart size is normal. The pulmonary vasculature is normal. The lungs are clear. IMPRESSION: 1. No acute pulmonary process. [facility], , 05/09/2025 9:40 PM
--- NOTE | 2025-05-09 22:39 | CT ---
EXAMINATION TYPE: CT brain wo con DATE OF EXAM: 05/09/2025 9:52 PM COMPARISON: None. CLINICAL INDICATION: Male, 69 years old with history of headache, headache, high blood pressure TECHNIQUE: CT of the brain is performed utilizing 3 mm thick sections through the posterior fossa and 3 mm thick sections through the remaining calvarium. Study is performed within 24 hours of arrival to the hospital. Contrast used: mL of , (none if empty) CT DLP: 1096.3 mGycm, Automated exposure control for dose reduction was used. FINDINGS: No abnormal hyperdensity is present to suggest an acute intracranial hemorrhage. No mass lesion is evident. No acute infarcts are evident. Ventricles and sulci are appropriate for the patient age. Paranasal sinuses and mastoid air cells within the [id number] are clear. IMPRESSION: 1. No acute intracranial process. Follow up MRI can be performed as clinically indicated. [facility], , 05/09/2025 10:37 PM
[2025-05-09] MEDS: carvediloL 12.5 MG TAB PO STA (23:24)
[2025-05-09] MEDS ORDERED: ACETAMINOPHEN TAB 325 MG TAB PO PRN (23:52)
[2025-05-09] MEDS ORDERED: ONDANSETRON 4 MG/2 ML VIAL IVP PRN (23:52)
[2025-05-09] MEDS ORDERED: MAG HYDROX/AL HYDROX/SIMETH 30 ML CUP PO PRN (23:52)
[2025-05-09] MEDS ORDERED: HYDROcodone/APAP 5-325MG 1 EACH TAB PO PRN (23:52)
[2025-05-09] MEDS ORDERED: CALCIUM CARBONATE 500 MG CHEWABLE PO PRN (23:52)
[2025-05-09] MEDS ORDERED: NALOXONE 0.4 MG/ML 1 ML VIAL IV PRN (23:52)
[2025-05-09] MEDS ORDERED: NITROGLYCERIN SL TABS 0.4 MG TAB SUBLINGUAL PRN (23:54)
[2025-05-09] MEDS ORDERED: MECLIZINE 25 MG TAB PO PRN (23:54)
[2025-05-10] MEDS: EZETIMIBE 10 MG TAB PO SCH (00:11)
[2025-05-10] MEDS: SPIRONOLACTONE 25 MG TAB PO SCH (10:06)
[2025-05-10] MEDS: LOSARTAN 50 MG TAB PO SCH (10:06)
[2025-05-10] MEDS: carvediloL 12.5 MG TAB PO SCH (10:06)
[2025-05-10] MEDS: ASPIRIN 81 MG PO SCH (10:06)
[2025-05-10] MEDS: ENOXAPARIN 40 MG/0.4 ML SYRINGE SQ SCH (10:07)
[2025-05-10] MEDS: hydroCHLOROthiazide 25 MG TAB PO SCH (10:07)
[2025-05-10] MEDS: FAMOTIDINE 20 MG TAB PO SCH (10:07)
--- NOTE | 2025-05-10 11:09 | P.CRDCN ---
History of Present Illness Consult date: 05/10/25 History of present illness: History of Present Illness: The patient is a 69-year-old male, followed by Dr. Canada with known history of multivessel stenting most recently in 2019 who presented with symptoms of dizziness and elevated blood pressure. According to him since November after his cholecystectomy he had difficulty controlling his blood pressure. His blood pressure was quite elevated yesterday and he came into the emergency room. He has some chest discomfort in the lower chest and upper abdomen that he relates to his chronic back pain. The patient has a known history of radiculopathy. He had no symptoms to suggest recurrent angina similar to what he had prior to his PCI. According to him he had an MPI in October prior to his surgery that showed no evidence of significant abnormalities, the results are not available to me. He is feeling lightheaded but no syncope. He has no palpitations. His breathing is stable. He denies any PND, orthopnea or peripheral edema. He smokes pipes but has decreased the amount. He has a history of hypertension and hyperlipidemia, he is nondiabetic. He was in sinus mechanism on presentation. His troponin was normal. Medications: Coreg 25 mg twice a day, losartan 100 mg daily, aspirin once a day, spironolactone 25 mg daily, amlodipine 10 mg daily, hydrochlorothiazide 25 mg daily, ezetimibe 10 mg daily. Review of Systems: Respiratory: [No history of asthma, bronchitis or recent cough.] GI: [No nausea or vomiting . No history of peptic ulcer disease. No recent GI bleed.] : [No hematuria or dysuria.] Nervous System: [No stroke or seizure. He has chronic back pain] Physical Examination: 69-year-old male, alert oriented no apparent distress ,Blood pressure 152/80, Heart rate 60 Head: [Normocephalic.] Eyes: [Sclerae nonicteric.] Neck: [Good carotid upstroke, no bruit, no jugular venous distention.] Lungs: [Clear to auscultation.] Heart: [Regular rate and rhythm, S1-S2, no S3, no rub. Systolic ejection murmur, 2/6.] Abdomen: [Soft nontender, positive bowel sounds no organomegaly.] Extremities: [No edema, intact distal pulses.] Labs: Troponin less than 0.012. BUN 18, creatinine 0.94. Hemoglobin 16.6. Chest x- ray with no acute infiltrate. EKG: Sinus mechanism rate of [address] segment changes Impression: 1. Hypertension uncontrolled. 2. History of CAD with no evidence of acute coronary syndrome 3. History of hyperlipidemia 4. Chronic back pain Plan: 1. I will obtain the results of his recent MPI 2. Add hydralazine to his regimen 3. Obtain an echocardiogram with Doppler 4. Continue to follow blood pressure and depending on the trend further recommendations will be made 5. Thank you for this consult we will follow with you Past Medical History Past Medical History: Hyperlipidemia, Hypertension, Myocardial Infarction ([place]) Additional Past Medical History / Comment(s): BACK PAIN; FAMILY HX OF DM - PT STATES THAT HE PERIODICALLY CHECKS HIS CBG AND IT IS SOMETIMES "HIGH" Last Myocardial Infarction Date:: 2018 History of Any Multi-Drug Resistant Organisms: None Reported Past Surgical History: Adenoidectomy, Heart Catheterization With Stent, Orthopedic Surgery, Tonsillectomy Additional Past Surgical History / Comment(s): FINGER ON LEFT HAND SEWN ON - 1979; 5 STENTS - [address] AYON ALL OF THEM IN - 1ST ONE IN 2001 AND LAST ONE IN 2010, 3 stents November 2018 Past Anesthesia/Blood Transfusion Reactions: No Reported Reaction Date of Last Stent Placement:: 2018 Past Psychological History: No Psychological Hx Reported Smoking Status: Current every day smoker Past Alcohol Use History: None Reported Past Drug Use History: None Reported - Past Family History Father Family Medical History: Cancer, Hypertension Additional Family Medical History / Comment(s): VALVE , colon cancer lymphoma Mother Family Medical History: Coronary Artery Disease (CAD), Diabetes Mellitus Additional Family Medical History / Comment(s): CABG Medications and Allergies Home Medications Medication Instructions Recorded Confirmed Type Nitroglycerin Sl Tabs [Nitrostat] 0.4 mg SUBLINGUAL Q5M PRN #25 tab 12/23/18 05/10/25 Rx Losartan Potassium 100 mg PO DAILY@1500 12/24/18 05/10/25 History Aspirin EC [Ecotrin Low Dose] 81 mg PO DAILY 01/25/20 05/10/25 History amLODIPine [Norvasc] 10 mg PO HS 01/25/20 05/10/25 History carvediloL [Coreg] 25 mg PO BID 01/25/20 05/10/25 History Meclizine HCl 25 mg PO TID PRN 09/06/20 05/10/25 History Cetirizine HCl 10 mg PO DAILY PRN 05/12/23 05/10/25 History Ezetimibe [Zetia] 10 mg PO HS 05/12/23 05/10/25 History hydroCHLOROthiazide 25 mg PO DAILY PRN 05/12/23 05/10/25 History Spironolactone [Aldactone] 25 mg PO DAILY 05/10/25 05/10/25 History carvediloL [Coreg] 12.5 mg PO DAILY@1500 PRN 05/10/25 05/10/25 History Allergies Allergy/AdvReac Type Severity Reaction Status Date / Time Sulfa (Sulfonamide AdvReac HIGH FEVER Verified 05/10/25 09:28 Antibiotics) Physical Exam Vitals: Vital Signs Temp Pulse Pulse Resp BP BP BP 05/10/25 08:00 97.6 F 62 18 157/110 152/88 05/10/25 05:09 62 17 147/70 05/10/25 00:48 55 L 05/09/25 23:24 152/73 05/09/25 20:22 98.9 F 68 18 167/80 Pulse Ox 05/10/25 08:00 98 05/10/25 05:09 95 05/10/25 00:48 05/09/25 23:24 05/09/25 20:22 95 Intake and Output 05/09/25 05/10/25 05/10/25 22:59 06:59 14:59 Other: Weight 79.379 kg Results 05/09/25 21:15 05/09/25 21:15 Cardiac Enzymes 05/09/25 05/09/25 05/10/25 Range/Units 21:15 21:15 00:06 AST 22 (17-59) U/L Troponin I <0.012 <0.012 (0.000-0.034) ng/mL 05/10/25 Range/Units 04:14 AST (17-59) U/L Troponin I <0.012 (0.000-0.034) ng/mL Coagulation 05/09/25 Range/Units 21:15 PT 11.7 (10.0-12.5) sec APTT 23.7 (22.0-30.0) sec CBC 05/09/25 Range/Units 21:15 WBC 8.40 (4.50-10.00) 10*3/uL RBC 5.33 (4.40-5.60) 10*6/uL Hgb 16.6 (13.0-17.0) g/dL Hct 46.5 (39.6-50.0) % Plt Count 160 (140-440) 10*3/uL Comprehensive Metabolic Panel 05/09/25 Range/Units 21:15 Sodium 137 (137-145) mmol/L Potassium 4.3 (3.5-5.1) mmol/L Chloride 105 (98-107) mmol/L Carbon Dioxide 23 (22-30) mmol/L BUN 18 (9-20) mg/dL Creatinine 0.94 (0.66-1.25) mg/dL Glucose 154 H (74-99) mg/dL Calcium 9.6 (8.4-10.2) mg/dL AST 22 (17-59) U/L ALT 36 (4-49) U/L Alkaline Phosphatase 64 (38-126) U/L Total Protein 6.5 (6.3-8.2) g/dL Albumin 4.1 (3.5-5.0) g/dL Current Medications Generic Name Dose Route Start Last Admin Trade Name Freq PRN Reason Stop Dose Admin Acetaminophen 650 mg 05/09/25 23:52 Acetaminophen Tab 325 Mg Tab PO Q6HR PRN Mild Pain or Fever > 100.5 Hydrocodone Bitart/Acetaminophen 1 each 05/09/25 23:52 Hydrocodone/Apap 5-325mg 1 Each Tab PO Q6HR PRN Moderate Pain (Scale 4 to 6) Al Hydroxide/Mg Hydroxide 15 ml 05/09/25 23:52 Mag Hydrox/Al Hydrox/Simeth 30 Ml Cup PO Q6HR PRN Indigestion Amlodipine Besylate 10 mg 05/10/25 21:00 Amlodipine 10 Mg Tab PO HS [facility] Aspirin 81 mg 05/10/25 09:00 05/10/25 10:06 Aspirin 81 Mg PO 81 mg DAILY [facility] Administration Calcium Carbonate/Glycine 1,000 mg 05/09/25 23:52 Calcium Carbonate 500 Mg Chewable PO Q4HR PRN Dyspepsia Carvedilol 25 mg 05/10/25 07:30 05/10/25 10:06 Carvedilol 12.5 Mg Tab PO 25 mg BID-W/MEALS [facility] Administration Ezetimibe 10 mg 05/09/25 23:45 05/10/25 00:11 Ezetimibe 10 Mg Tab PO 10 mg HS [facility] Administration Enoxaparin Sodium 40 mg 05/10/25 09:00 05/10/25 10:07 Enoxaparin 40 Mg/0.4 Ml Syringe SQ Not Given DAILY [facility] Famotidine 20 mg 05/10/25 09:00 05/10/25 10:07 Famotidine 20 Mg Tab PO Not Given BID [facility] Hydralazine HCl 25 mg 05/10/25 11:00 Hydralazine Hcl 25 Mg Tab PO BID [facility] Hydrochlorothiazide 25 mg 05/10/25 09:00 05/10/25 10:07 Hydrochlorothiazide 25 Mg Tab PO Not Given DAILY [facility] Losartan Potassium 100 mg 05/10/25 09:00 05/10/25 10:06 Losartan 50 Mg Tab PO 100 mg DAILY [facility] Administration Meclizine HCl 25 mg 05/09/25 23:54 Meclizine 25 Mg Tab PO TID PRN DIZZINESS Naloxone HCl 0.2 mg 05/09/25 23:52 Naloxone 0.4 Mg/Ml 1 Ml Vial IV Q2M PRN Opioid Reversal Nitroglycerin 0.4 mg 05/09/25 23:54 Nitroglycerin Sl Tabs 0.4 Mg Tab SUBLINGUAL Q5M PRN Chest Pain Ondansetron HCl 4 mg 05/09/25 23:52 Ondansetron 4 Mg/2 Ml Vial IVP Q8HR PRN Nausea And Vomiting Spironolactone 25 mg 05/10/25 09:00 05/10/25 10:06 Spironolactone 25 Mg Tab PO 25 mg DAILY [facility] Administration Intake and Output 05/09/25 05/10/25 05/10/25 22:59 06:59 14:59 Other: Weight 79.379 kg 05/09/25 21:15 05/09/25 21:15
--- NOTE | 2025-05-10 13:25 | P.HPIM ---
History of Present Illness H&P Date: 05/10/25 Chief Complaint: High blood pressure This is a pleasant 69year-old patient of Dr. Mcinytre. Follows with cardiology Dr. Dickens. Chronic medical conditions include coronary artery disease with stent , hypertension, hyperlipidemia, chronic neck and low back pain, smoker. Patient presents with blood pressure running high. He states his blood pressure reading been up and down. He has been discussing it with his family doctor. Sometimes with blood pressure in the low side he will stop his medication. Yesterday her blood pressure running really high.Yesterday went up to 198 x 101. . No dizziness no lightheadedness. Sometimes takes an extra dose of Coreg. Sometimes he will hold off depending on his blood pressure number. Did have some chest tightness across the chest that resolved. Review of systems: GEN.: None EYES: None HEENT: None NECK: None RESPIRATORY: None CARDIOVASCULAR: As above GASTROINTESTINAL: None GENITOURINARY: None MUSCULOSKELETAL: Chronic neck and lower back pain from patient LYMPHATICS: None HEMATOLOGICAL: None PSYCHIATRY: None NEUROLOGICAL: None Past medical history to include: Coronary artery disease with stent last one about 2008, hypertension, hyperlipidemia, chronic neck and low back pain Social history: On disability. . 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 Smokes a pipe, now sometimes. 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 EYES: Pupils equal. Conjunctiva julio l. HEENT: External appearance of nose and ears normal, oral cavity grossly normal. NECK: JVD not raised; masses not palpable. HEART: First and second heart sounds are normal; no edema. LUNGS: Respiratory rate normal; clear to auscultation. ABDOMEN: Soft, nontender, liver spleen not palpable, no masses palpable. PSYCH: Alert and oriented x3; mood and affect julio l. MUSCULOSKELETAL:No Clubbing/cyanosis;muscles-grossly intact NEUROLOGICAL: Cranial nerves grossly intact; no facial asymmetry, power and sensation grossly intact. LYMPHATICS: No lymph nodes palpable in the axilla and neck INVESTIGATIONS, reviewed in the clinical context: May 09: White count 8.4 hemoglobin 16.6 platelets 160 sodium 137 potassium 4.3 creatinine 0.94 Troponin I less than 0.12 x 3 EKG tracing personally reviewed by me-normal sinus rhythm. Chest x-ray film personally reviewed by me-mild hyperinflation CT brain: Without contrast: Unremarked Assessment and plan: - Essential hypertension, uncontrolled [Patient states since his cholecystectomy few months ago his pressures been up and down. Sometimes he takes his medication has to stop it/hold it because bloo d pressure running too low.] On amlodipine 10 mg nightly, Coreg 25 mg twice daily, Cozaar 100 mg daily, -Anterior chest wall pressure. Positive for uncontrolled blood pressure Cardiology consult -Unstable angina Positive nuclear stress test. Troponin negative -CAD with prior stents Dr. Dickens Aspirin, -Hyperlipidemia Zetia -Chronic nicotine dependence, pipe smoker Counseled Pending echo. Hydralazine added by cardiology. Past Medical History Past Medical History: Hyperlipidemia, Hypertension, Myocardial Infarction ([place]) Additional Past Medical History / Comment(s): BACK PAIN; FAMILY HX OF DM - PT STATES THAT HE PERIODICALLY CHECKS HIS CBG AND IT IS SOMETIMES "HIGH" Last Myocardial Infarction Date:: 2018 History of Any Multi-Drug Resistant Organisms: None Reported Past Surgical History: Adenoidectomy, Heart Catheterization With Stent, Ortho pedic Surgery, Tonsillectomy Additional Past Surgical History / Comment(s): FINGER ON LEFT HAND SEWN ON - 1979; 5 STENTS - [address] AYON ALL OF THEM IN - 1ST ONE IN 2001 AND LAST ONE IN 2010, 3 stents November 2018 Past Anesthesia/Blood Transfusion Reactions: No Reported Reaction Date of Last Stent Placement:: 2018 Past Psychological History: No Psychological Hx Reported Smoking Status: Current every day smoker Past Alcohol Use History: None Reported Past Drug Use History: None Reported - Past Family History Father Family Medical History: Cancer, Hypertension Additional Family Medical History / Comment(s): VALVE , colon cancer lymphoma Mother Family Medical History: Coronary Artery Disease (CAD), Diabetes Mellitus Additional Family Medical History / Comment(s): CABG Medications and Allergies Home Medications Medication Instructions Recorded Confirmed Type Nitroglycerin Sl Tabs [Nitrostat] 0.4 mg SUBLINGUAL Q5M PRN #25 tab 12/23/18 05/10/25 Rx Losartan Potassium 100 mg PO DAILY@1500 12/24/18 05/10/25 History Aspirin EC [Ecotrin Low Dose] 81 mg PO DAILY 01/25/20 05/10/25 History amLODIPine [Norvasc] 10 mg PO HS 01/25/20 05/10/25 History carvediloL [Coreg] 25 mg PO BID 01/25/20 05/10/25 History Meclizine HCl 25 mg PO TID PRN 09/06/20 05/10/25 History Cetirizine HCl 10 mg PO DAILY PRN 05/12/23 05/10/25 History Ezetimibe [Zetia] 10 mg PO HS 05/12/23 05/10/25 History hydroCHLOROthiazide 25 mg PO DAILY PRN 05/12/23 05/10/25 History Spironolactone [Aldactone] 25 mg PO DAILY 05/10/25 05/10/25 History carvediloL [Coreg] 12.5 mg PO DAILY@1500 PRN 05/10/25 05/10/25 History Allergies Allergy/AdvReac Type Severity Reaction Status Date / Time Sulfa (Sulfonamide AdvReac HIGH FEVER Verified 05/10/25 09:28 Antibiotics) Physical Exam Vitals: Vital Signs Temp Pulse Pulse Resp BP BP BP 05/10/25 08:00 97.6 F 62 18 157/110 152/88 05/10/25 05:09 62 17 147/70 05/10/25 00:48 55 L 05/09/25 23:24 152/73 05/09/25 20:22 98.9 F 68 18 167/80 Pulse Ox 05/10/25 08:00 98 05/10/25 05:09 95 05/10/25 00:48 05/09/25 23:24 05/09/25 20:22 95 Intake and Output 05/09/25 05/10/25 05/10/25 22:59 06:59 14:59 Other: Weight 79.379 kg Results CBC & Chem 7: 05/09/25 21:15 05/09/25 21:15 Labs: Abnormal Lab Results - Last 24 Hours (Table) 05/09/25 Range/Units 21:15 Glucose 154 H (74-99) mg/dL
[2025-05-10 13:32] VITALS: TEMP 97.9
[2025-05-10] MEDS: hydrALAZINE HCL 25 MG TAB PO SCH (13:52)
[2025-05-10 17:06] VITALS: BP 139/86; PULSE 73; RESP 18
[2025-05-10] MEDS ORDERED: amLODIPine 10 MG TAB PO SCH (21:00)
--- NOTE | 2025-05-11 12:10 | CA ---
Transthoracic Echo Report Name: Kevin Saucedo Age: 69 Gender: M : 1955 Exam Date: 05/10/2025 17:42 Exam Location: [facility] Ht (in): 67 Wt (lb): 175 Ordering Physician: Margo Ayala MD ([id number]) Attending/Referring Phys: Dispensing Lead Richa Selby RDCS Procedure CPT: Indications: CAD Cardiac Hx: Technical Quality: Fair Contrast 1: Total Dose (mL): Contrast 2: Total Dose (mL): MEASUREMENTS (Male / Female) Normal Values 2D ECHO LV Diastolic Diameter PLAX 4.4 cm 4.2 - 5.9 / 3.9 - 5.3 cm LV Systolic Diameter PLAX 3.1 cm IVS Diastolic Thickness 1.3 cm 0.6 - 1.0 / 0.6 - 0.9 cm LVPW Diastolic Thickness 1.0 cm 0.6 - 1.0 / 0.6 - 0.9 cm LV Relative Wall Thickness 0.5 RV Internal Dim ED PLAX 3.5 cm LA Systolic Diameter LX 4.7 cm 3.0 - 4.0 / 2.7 - 3.8 cm LV Diastolic Volume MOD 4C 122.0 cm??? LV Systolic Volume MOD 4C 49.5 cm??? LV Ejection Fraction MOD 4C 59.4 % LV Cardiac Index MOD 4C 2412.7 cm???/min???m??? LV Diastolic Length 4C 9.0 cm LV Systolic Length 4C 7.2 cm LV Diastolic Volume MOD 2C 84.1 cm??? LV Systolic Volume MOD 2C 40.7 cm??? LV Ejection Fraction MOD 2C 51.6 % LV Cardiac Index MOD 2C 1441.8 cm???/min???m??? LV Diastolic Length 2C 8.2 cm LV Systolic Length 2C 7.2 cm LA Volume 51.1 cm??? 18 - 58 / 22 - 52 cm??? LA Volume Index 26.1 cm???/m??? 16 - 28 cm???/m??? M-MODE Aortic Root Diameter MM 3.4 cm AV Cusp Separation MM 1.8 cm DOPPLER AV Peak Velocity 143.1 cm/s AV Peak Gradient 8.2 mmHg MV Area PHT 3.6 cm??? Mitral E Point Velocity 90.1 cm/s Mitral A Point Velocity 95.0 cm/s Mitral E to A Ratio 0.9 MV Deceleration Time 211.6 ms FINDINGS Left Ventricle Left ventricular ejection fraction is estimated at 55-60 %. Left ventricular cavity size normal. Mildly increased septal wall thickness. No obvious regional wall motion abnormalities. Right Ventricle Normal right ventricular size. Unable to estimate the right ventricular systolic pressure. Right Atrium Normal right atrial size. No right atrial thrombus or mass seen. Left Atrium Mildly increased left atrial diameter. No left atrial thrombus or mass present. Mitral Valve Structurally normal mitral valve. No mitral stenosis, or prolapse.mild mitral regurgitation. Aortic Valve Trileaflet aortic valve. No aortic valve stenosis or regurgitation.aortic valve sclerosis. Tricuspid Valve Structurally normal tricuspid valve. No tricuspid stenosis, regurgitation or prolapse. Pulmonic Valve Structurally normal pulmonic valve. No pulmonic regurgitation. Pericardium No pericardial effusion. Aorta Normal size aortic root and proximal ascending aorta. CONCLUSIONS 1. Normal left ventricular size and systolic function 2. Mild mitral regurgitation Previewed by: Dr. Margo Ayala MD (Electronically Signed) Final Date: 11 May 2025 12:10
--- NOTE | 2025-05-11 17:39 | P.DS ---
Providers Date of admission: 05/09/25 23:54 Expected date of discharge: 05/10/25 Attending physician: Spencer Alba Consults: 05/09/25 23:52 Consult Physician Urgent Consulting Provider: [facility] Consult Reason/Comments: chest pain w/ HTN Do you want consulting provider notified?: Yes, Notify in am Primary care physician: Brandon Mcintyre [facility] Course: Chief Complaint: High blood pressure This is a pleasant 69year-old patient of Dr. Mcintyre. Follows with cardiology Dr. Dickens. Chronic medical conditions include coronary artery disease with stent , hypertension, hyperlipidemia, chronic neck and low back pain, smoker. Patient presents with blood pressure running high. He states his blood pressure reading been up and down. He has been discussing it with his family doctor. Sometimes with blood pressure in the low side he will stop his medication. Yesterday her blood pressure running really high.Yesterday went up to 198 x 101. . No dizziness no lightheadedness. Sometimes takes an extra dose of Coreg. Sometimes he will hold off depending on his blood pressure number. Did have some chest tightness across the chest that resolved. Later in the evening patient called me that patient left AMA. Past medical history to include: Coronary artery disease with stent last one about 2008, hypertension, hyperlipidemia, chronic neck and low back pain Social history: On disability. . 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 Smokes a pipe, now sometimes. 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 EYES: Pupils equal. Conjunctiva julio l. HEENT: External appearance of nose and ears normal, oral cavity grossly normal. NECK: JVD not raised; masses not palpable. HEART: First and second heart sounds are normal; no edema. LUNGS: Respiratory rate normal; clear to auscultation. ABDOMEN: Soft, nontender, liver spleen not palpable, no masses palpable. PSYCH: Alert and oriented x3; mood and affect julio l. MUSCULOSKELETAL:No Clubbing/cyanosis;muscles-grossly intact NEUROLOGICAL: Cranial nerves grossly intact; no facial asymmetry, power and sensation grossly intact. LYMPHATICS: No lymph nodes palpable in the axilla and neck INVESTIGATIONS, reviewed in the clinical context: 2D echo: EF 55 to 60%. May 09: White count 8.4 hemoglobin 16.6 platelets 160 sodium 137 potassium 4.3 creatinine 0.94 Troponin I less than 0.12 x 3 EKG tracing personally reviewed by me-normal sinus rhythm. Chest x-ray film personally reviewed by me-mild hyperinflation CT brain: Without contrast: Unremarked Assessment and plan: - Essential hypertension, uncontrolled [Patient states since his cholecystectomy few months ago his pressures been up and down. Sometimes he takes his medication has to stop it/hold it because blood pressure running too low.] On amlodipine 10 mg nightly, Coreg 25 mg twice daily, Cozaar 100 mg daily, -Anterior chest wall pressure. Positive for uncontrolled blood pressure Cardiology consult -Unstable angina Positive nuclear stress test. Troponin negative -CAD with prior stents Dr. Dickens Aspirin, -Hyperlipidemia Zetia -Chronic nicotine dependence, pipe smoker Counseled Disposition: Patient left AMA Past Medical History Past Medical History: Hyperlipidemia, Hypertension, Myocardial Infarction ([place]) Additional Past Medical History / Comment(s): BACK PAIN; FAMILY HX OF DM - PT STATES THAT HE PERIODICALLY CHECKS HIS CBG AND IT IS SOMETIMES "HIGH" Last Myocardial Infarction Date:: 2018 History of Any Multi-Drug Resistant Organisms: None Reported Past Surgical History: Adenoidectomy, Heart Catheterization With Stent, Orthopedic Surgery, Tonsillectomy Additional Past Surgical History / Comment(s): FINGER ON LEFT HAND SEWN ON - 1979; 5 STENTS - [address] AYON ALL OF THEM IN - 1ST ONE IN 2001 AND LAST ONE IN 2010, 3 stents November 2018 Past Anesthesia/Blood Transfusion Reactions: No Reported Reaction Date of Last Stent Placement:: 2018 Past Psychological History: No Psychological Hx Reported Smoking Status: Current every day smoker Past Alcohol Use History: None Reported Past Drug Use History: None Reported Plan - Discharge Summary New Discharge Prescriptions: No Action Nitroglycerin Sl Tabs [Nitrostat] 0.4 mg SUBLINGUAL Q5M PRN #25 tab PRN Reason: Chest Pain Losartan Potassium 100 mg PO DAILY@1500 amLODIPine [Norvasc] 10 mg PO HS carvediloL [Coreg] 25 mg PO BID Aspirin EC [Ecotrin Low Dose] 81 mg PO DAILY Meclizine HCl 25 mg PO TID PRN PRN Reason: DIZZINESS Cetirizine HCl 10 mg PO DAILY PRN PRN Reason: Allergy Symptoms carvediloL [Coreg] 12.5 mg PO DAILY@1500 PRN PRN Reason: Blood Pressure - High Spironolactone [Aldactone] 25 mg PO DAILY hydroCHLOROthiazide 25 mg PO DAILY PRN PRN Reason: Blood Pressure - High Ezetimibe [Zetia] 10 mg PO HS Discharge Medication List Nitroglycerin Sl Tabs [Nitrostat] 0.4 mg SUBLINGUAL Q5M PRN #25 tab 12/23/18 [Rx] Losartan Potassium 100 mg PO DAILY@1500 12/24/18 [History] Aspirin EC [Ecotrin Low Dose] 81 mg PO DAILY 01/25/20 [History] amLODIPine [Norvasc] 10 mg PO HS 01/25/20 [History] carvediloL [Coreg] 25 mg PO BID 01/25/20 [History] Meclizine HCl 25 mg PO TID PRN 09/06/20 [History] Cetirizine HCl 10 mg PO DAILY PRN 05/12/23 [History] Ezetimibe [Zetia] 10 mg PO HS 05/12/23 [History] hydroCHLOROthiazide 25 mg PO DAILY PRN 05/12/23 [History] Spironolactone [Aldactone] 25 mg PO DAILY 05/10/25 [History] carvediloL [Coreg] 12.5 mg PO DAILY@1500 PRN 05/10/25 [History] Follow up Appointment(s)/Referral(s): Brandon Mcintyre MD [Primary Care Provider] - 1-2 days Discharge Disposition: LEFT AGAINST MEDICAL ADVICE
== END 2025-05-10 18:05 | disposition left against medical advice (07) ==
LOC: EC 19:56 → 6NMEDSUR 23:54
PROVIDERS: ADMIT Hospitalist; ATTEND Hospitalist
DX: I16.0 Hypertensive urgency (principal); I25.110 Atherosclerotic heart disease of native coronary artery with unstable angina pectoris; I65.29 Occlusion and stenosis of unspecified carotid artery; R94.39 Abnormal result of other cardiovascular function study; I10 Essential (primary) hypertension; E78.5 Hyperlipidemia, unspecified; G89.29 Other chronic pain; M54.2 Cervicalgia; M54.50 Low back pain, unspecified; M54.10 Radiculopathy, site unspecified; I25.2 Old myocardial infarction; Z53.29 Procedure and treatment not carried out because of patient's decision for other reasons; F17.290 Nicotine dependence, other tobacco product, uncomplicated; Z79.82 Long term (current) use of aspirin; Z79.899 Other long term (current) drug therapy; Z88.2 Allergy status to sulfonamides; Z90.49 Acquired absence of other specified parts of digestive tract; Z95.5 Presence of coronary angioplasty implant and graft
CPT/HCPCS: 99285; 36415; 93005; 93306; 80053; 83735; 84484 ×2; 85025; 85610; 85730; 71046; 70450; G0378